=== PATIENT | female | born 1935 | race Caucasian/White ===

== ENCOUNTER 2016-05-03 11:01 | Emergency (ER) | payer OTHER, MEDICARE ==
[~2016-05-03] VITALS: Ht 157.5 cm; Wt 49.4 kg
[~2016-05-03 11:01] MED LIST: ANTI-DEPRESSANT; ASP81CT PO; ATOR10TA PO; BIOT25006 PO; CALC-80 PO; CALCIUM; CHOL2000 PO; CHOL400D9 PO; CLOP75TA28 PO; CYAN50TA PO; ESCI5TAB PO; FOLI-88 PO; MULT-298 PO; OMG1KC PO; ST.1POWD MC; TERI202.4P SQ; VIT1CAPS9 PO; VITB12
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
[2016-05-03] MEDS ORDERED: TRAM-42 PO (12:24)
[2016-05-03 12:59] VITALS: BP 123/76
== END 2016-05-03 12:59 | disposition home or self-care (01) ==
LOC: EDUNIT# 11:01 → ER 11:06
DX: S99.921A Unspecified injury of right foot, initial encounter (principal); S99.922A Unspecified injury of left foot, initial encounter; Z79.02 Long term (current) use of antithrombotics/antiplatelets; V48.4XXA Person boarding or alighting a car injured in noncollision transport accident, initial encounter; Y92.89 Other specified places as the place of occurrence of the external cause; Y99.8 Other external cause status
CPT/HCPCS: 99284

== ENCOUNTER → 2016-05-09 | Outpatient (CLI) | payer OTHER, MEDICARE ==
[~2016-05-09] MED LIST changes: +TRAM-42 PO
--- OUTSIDE RECORDS SUMMARY | 2016-05-09 10:26 | XMS REPORT | Continuity of Care Document ---
Author Author [facility] Organization [facility] Address Unknown Phone Unavailable Care Team Providers Care Power Reactor Supervisor Name Role Phone FordCarolyn PCP [phone] Source Comments Some departments are not documenting in the electronic medical record. If you do not see the information that you expected, contact Release of Information in the Health Information Management department at [phone] for further assistance in locating additional records.[facility] Active Allergies and Adverse Reactions No Known Allergies Current Medications Prescription Sig. Disp. Refills Start End Date Status Date CALCIUM CARBONATE Take 1 Cap by mouth twice Active (CALCIUM 500 PO) daily. fish oil /omega-3 fatty Take 1 Cap by mouth Active acids (SEA-OMEGA) daily. 340/1000 mg capsule ERGOCALCIFEROL (VITAMIN Take 1 Tab by mouth Active D2) (VITAMIN D PO) daily. cyanocobalamin(+) Take 500 mcg by mouth Active (VITAMIN B-12) 500 mcg daily. tablet aspirin EC 81 mg tablet Take 81 mg by mouth Active daily. Biotin 10 mg Tab Take 1 Tab by mouth Active daily. KIANNA'S WORT PO Take 1 Tab by mouth every Active 48 hours. lactobacillus rhamnosus Take 1 Cap by mouth daily Active (GG) (PROBIOTIC) 10 with breakfast. billion cell cap VIT C/VIT E Take 1 Cap by mouth Active ACETATE/LUTEIN/MIN daily. 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 Post herpetic neuralgia 10/31/2011 Social History Tobacco Use Types Packs/Day Years Used Date Former Smoker Cigarettes 0.3 30 Quit: 02/24/1989 Alcohol Use Drinks/Week oz/Week Comments Yes 7 Glasses of 4.2 wine Last Filed Vital Signs Vital Sign Reading Time Taken Blood Pressure 111/73 10/29/2011 2:07 PM CDT Pulse 88 10/29/2011 2:07 PM CDT Temperature 36.7 C (98 F) 10/29/2011 2:07 PM CDT Respiratory Rate 14 10/29/2011 2:07 PM CDT Height 1.549 m (5' 1") 10/29/2011 2:07 PM CDT Weight 50.349 kg (111 lb) 10/29/2011 2:07 PM CDT Body Mass Index 20.98 10/29/2011 2:07 PM CDT Oxygen Saturation 98% 10/29/2011 2:07 PM CDT Plan of Care Health Maintenance Due Date Last Done Comments Physical (Comprehensive) 1944 Exam Pertussis Vaccine 1948 Tetanus Vaccine 1954 Breast Cancer Screening 1977 Shingles Vaccine 1997 Osteoporosis Screening 2002 Prevnar/Pneumovax (#1) 2002 Influenza Vaccine 10/25/2014 Results from Last 3 Months Not on file
--- NOTE | 2016-05-09 12:37 | Diagnostic Imaging Report ---
EXAMINATION: Left lower extremity duplex venous ultrasound. TECHNIQUE: DVT protocol. Multiple sonographic images with color Doppler and waveform interrogation were performed of the left lower extremity veins with compression and augmentation maneuvers. INDICATION: Left leg pain. FINDINGS: The left lower extremity veins from the groin to below the knee veins were examined with normal color-flow, compressibility and waveform demonstrated. The great saphenous vein is patent. IMPRESSION: No evidence of DVT in the left lower extremity. Dictated by: Dictated on workstation # [id number]
== END ==
LOC: RAD 10:22
PROVIDERS: ATTEND Podiatrist
DX: M79.662 Pain in left lower leg (principal)

== ENCOUNTER → 2016-08-15 | Outpatient (CLI) | payer MEDICARE | DX: M81.0 Age-related osteoporosis without current pathological fracture (principal) ==

== ENCOUNTER → 2017-04-24 | Outpatient (CLI) | payer MEDICARE ==
--- NOTE | 2017-04-24 19:05 | Diagnostic Imaging Report ---
INDICATION: Routine screening. The current study was also evaluated with a Computer Aided Detection (CAD) system. Comparison is made with prior exams from 08/15/2015 and 08/04/2014. FINDINGS: Both breasts remain heterogeneously dense, limiting the sensitivity of mammography. The overall parenchymal pattern appears to be stable. There are scattered benign calcifications throughout both breasts. Vascular calcifications are also noted. There is a focal density identified in the right breast retroareolar location, best seen on 3D slice 8 on the CC view. This may be inferiorly located on the MLO view. Additional views are recommended. Left breast is unremarkable. The axillae are unremarkable. IMPRESSION: Right breast density. Additional views are recommended for further evaluation. ACR BI-RADS Category 0: Incomplete. (Needs additional imaging evaluation). Result letter will be mailed to the patient. Note: At least 10% of breast cancer is not imaged by mammography. Dictated by: Dictated on workstation # [id number]
== END ==
LOC: RAD 13:34
PROVIDERS: ATTEND Internal Medicine
DX: Z12.31 Encounter for screening mammogram for malignant neoplasm of breast (principal)
CPT/HCPCS: 77067

== ENCOUNTER → 2017-05-05 | Outpatient (CLI) | payer MEDICARE ==
--- NOTE | 2017-05-05 14:34 | Diagnostic Imaging Report ---
EXAMINATION: Ultrasound of the right breast. INDICATION: Abnormal mammogram. FINDINGS: The screening mammogram performed on 04/24/2017 suggested a focal density in the lateral aspect of the right breast on the craniocaudad view. This finding could not be identified with certainty on the MLO view. On the diagnostic mammogram performed earlier today, there was no evidence for malignancy. On this study, there is no discrete solid or cystic mass identified. I suspect that the density seen on the screening mammogram was secondary to superposition of the dense fibroglandular tissue. Even so, it may prove worthwhile to have a short-term (6 month) followup mammogram of the right breast for continued evaluation. IMPRESSION: There is no evidence for malignancy. Recommendations as above. ACR BI-RADS Category 3: Probably benign findings. Dictated by: Dictated on workstation # [id number]
--- NOTE | 2017-05-05 18:39 | Diagnostic Imaging Report ---
EXAM: Unilateral diagnostic right mammogram. INDICATION: Abnormal screening mammogram. The recent screening mammogram performed on 04/24/2017 noted a focal density in the retroareolar region of the right breast on the CC view. Compression and rolled views of this area showed no definite underlying abnormality. This finding could not be identified with certainty on the true lateral view, either. Even so, I would recommend that ultrasound of the lateral half of the right breast be performed for further evaluation. IMPRESSION: There is no evidence of malignancy. Ultrasound is pending for further evaluation. ACR BI-RADS Category 0: Incomplete. (Needs additional imaging evaluation). Result letter will be mailed to the patient. Note: At least 10% of breast cancer is not imaged by mammography. Dictated by: Dictated on workstation # [id number]
== END ==
LOC: RAD 13:19
PROVIDERS: ATTEND Internal Medicine
DX: R92.8 Other abnormal and inconclusive findings on diagnostic imaging of breast (principal)

== ENCOUNTER → 2017-05-14 | Outpatient (CLI) | payer MEDICARE ==
--- NOTE | 2017-05-14 15:59 | Diagnostic Imaging Report ---
PROCEDURE: US carotid duplex, bilateral. TECHNIQUE: Multiple real-time grayscale images were obtained over the carotid arteries in various projections, bilaterally. Additional duplex Doppler and color Doppler images were also obtained. INDICATION: History of carotid artery atherosclerotic disease. FINDINGS: Color and grayscale images demonstrate fairly tortuous course of the left external carotid artery. There is mild plaque-like formation, particularly at the carotid bifurcations with extension into the internal and external carotid arteries. No visualized area of stenosis. No significant velocity changes to suggest a focal area of stenosis. External carotid arteries are patent. Vertebral arteries with antegrade direction of flow. IMPRESSION: Atherosclerotic disease involving both both carotid arterial systems. However, no findings to suggest significant flow limitations or stenosis at this time. Parameters based on the consensus panel Anne-Scale and Doppler ultrasound criteria published December 2002, Radiology, Volume 229. DOPPLER (peak systolic velocity M/S Right Left CCA .73 .92 ICA Proximal .27 .46 ICA Mid .42 .58 ICA Distal .8 .65 RATIO 1.1 .71 ECA .75 .69 VERT .7 .6 Dictated by: Dictated on workstation # [id number]
== END ==
LOC: RAD 15:11
PROVIDERS: ATTEND Internal Medicine
DX: I65.23 Occlusion and stenosis of bilateral carotid arteries (principal)
CPT/HCPCS: 93880

== ENCOUNTER → 2017-11-19 | Outpatient (CLI) | payer MEDICARE ==
--- NOTE | 2017-11-19 15:21 | Diagnostic Imaging Report ---
EXAMINATION: Ultrasound of the right breast. INDICATION: Followup exam. FINDINGS: The screening mammogram performed on 04/24/2017 suggested a small area of increased density in the retroareolar region of the right breast. The subsequent diagnostic mammogram and ultrasound exam of 05/05/2017 failed to show any sign of malignancy in this area. On the diagnostic mammogram performed earlier today, there was no evidence for malignancy either. The study is also unremarkable for any discrete solid or cystic mass that would suggest a malignant process. Most likely, the density in question was related to fibroglandular tissue alone. I do feel the patient can return to her routine screening schedule in April of 2018. IMPRESSION: 1. There is no evidence for malignancy. 2. The patient should have her annual screening mammogram on schedule in April 2018. ACR BI-RADS Category 1: Negative. Dictated by: Dictated on workstation # [id number]
--- NOTE | 2017-11-19 16:19 | Diagnostic Imaging Report ---
EXAMINATION: Unilateral diagnostic right mammogram with 3D Tomosynthesis. INDICATION: Previous abnormal mammogram. COMPARISON: 04/24/2017, 08/15/2015, and 08/04/2014. PERSONAL HISTORY: At this time, there are no current complaints. FINDINGS: The screening mammogram performed on 04/24/2017 raised the question of a focal area of increased density in the lateral aspect of the right breast on the craniocaudad view. The subsequent diagnostic mammogram and ultrasound exam of 05/05/2017 failed to show any sign of malignancy in this area. On this exam, there is still no primary or secondary sign of malignancy evident in this region. When compared to the previous study, there does not appear to have been any significant change. IMPRESSION: 1. The appearance of the right breast is stable when compared to the prior exam. There is still no evidence for malignancy. 2. Ultrasound is pending for further evaluation. ACR BI-RADS Category 0: Incomplete. (Needs additional imaging evaluation). Result letter will be mailed to the patient. Note: At least 10% of breast cancer is not imaged by mammography. Dictated by: Dictated on workstation # [id number]
== END ==
LOC: RAD 12:48
PROVIDERS: ATTEND Internal Medicine
DX: R92.8 Other abnormal and inconclusive findings on diagnostic imaging of breast (principal)

== ENCOUNTER → 2018-05-07 | Outpatient (CLI) | payer MEDICARE ==
--- NOTE | 2018-05-07 20:01 | Diagnostic Imaging Report ---
INDICATION: Routine screening. COMPARISON: Comparison is made with prior mammograms from 04/24/2017 and 08/15/2015. TECHNIQUE: 2D and 3D bilateral screening mammography was performed with computer-aided detection (CAD) system. FINDINGS: Both breasts are heterogeneously dense, limiting the sensitivity of mammography. There are benign-appearing parenchymal and vascular calcifications bilaterally. No dominant mass or malignant appearing microcalcifications are seen. The axillae are unremarkable. IMPRESSION: No mammographic features suspicious for malignancy are identified. ACR BI-RADS Category 2: Benign findings. Result letter will be mailed to the patient. Note: At least 10% of breast cancer is not imaged by mammography. Dictated by: Dictated on workstation # [id number]
== END ==
LOC: RAD 15:11
PROVIDERS: ATTEND Internal Medicine
DX: Z12.31 Encounter for screening mammogram for malignant neoplasm of breast (principal)
CPT/HCPCS: 77067

== ENCOUNTER → 2018-11-25 | Outpatient (CLI) | payer MEDICARE ==
[~2018-11-25] MED LIST changes: +RT-ALBUTEROL SULF 2.5 MG/3 ML PRE-MIX VIAL INH ONE
== END ==
LOC: RT 15:54
PROVIDERS: ATTEND Physician Assistant
DX: J44.9 Chronic obstructive pulmonary disease, unspecified (principal)
CPT/HCPCS: 94060; 94640; 94726; 94729

== ENCOUNTER → 2019-05-04 | Outpatient (CLI) | payer MEDICARE ==
[~2019-05-04] MED LIST changes: -RT-ALBUTEROL SULF 2.5 MG/3 ML PRE-MIX VIAL INH ONE
--- NOTE | 2019-05-04 16:36 | Diagnostic Imaging Report ---
INDICATION: Routine screening. Comparison is made with prior mammograms from 05/07/2018 and 04/24/2017. 2-D and 3-D bilateral screening mammography was performed. The current study was also evaluated with a Computer Aided Detection (CAD) system. 3-D tomosynthesis was also performed and reviewed. FINDINGS: Both breasts remain heterogeneously dense, limiting the sensitivity of mammography. There are benign parenchymal and vascular calcifications bilaterally. No dominant mass or malignant-appearing microcalcifications are seen. Axillae are unremarkable. IMPRESSION: No mammographic features suspicious for malignancy are identified. ACR BI-RADS Category 2: Benign findings. Result letter will be mailed to the patient. Note: At least 10% of breast cancer is not imaged by mammography. Dictated by: Dictated on workstation # [id number]
== END ==
LOC: RAD 15:11
PROVIDERS: ATTEND Nurse Practitioner
DX: Z12.31 Encounter for screening mammogram for malignant neoplasm of breast (principal)
CPT/HCPCS: 77067

== ENCOUNTER → 2020-05-04 | Outpatient (CLI) | payer MEDICARE ==
--- NOTE | 2020-05-05 11:50 | Diagnostic Imaging Report ---
INDICATION: Routine screening. Comparison is made with prior mammogram 05/04/2019 and 05/07/2018. 2-D and 3-D bilateral screening mammography was performed with CAD. Both breasts remain heterogeneously dense, limiting the sensitivity of mammography. There are scattered benign parenchymal and vascular calcifications bilaterally. No mass or malignant appearing microcalcifications are seen. Axillae are unremarkable. IMPRESSION: BI-RADS Category 2 No mammographic features suspicious for malignancy are identified. ACR BI-RADS Category 2: Benign findings. Result letter will be mailed to the patient. Note: At least 10% of breast cancer is not imaged by mammography. Dictated by: Dictated on workstation # [id number]
== END ==
LOC: RAD 14:45
PROVIDERS: ATTEND Internal Medicine
DX: Z12.31 Encounter for screening mammogram for malignant neoplasm of breast (principal)
CPT/HCPCS: 77063; 77067

== ENCOUNTER 2020-08-11 15:58 | Outpatient (RCR) | payer MEDICARE | END 2020-08-20 | disposition home or self-care (01) | LOC: CR3 15:58 | PROVIDERS: ATTEND Internal Medicine | DX: Z01.818 Encounter for other preprocedural examination (principal) ==

== ENCOUNTER → 2020-09-20 | Outpatient (RCR) | payer MEDICARE | END | disposition home or self-care (01) | LOC: CR3 08-21 15:12 | PROVIDERS: ATTEND Internal Medicine | DX: Z01.818 Encounter for other preprocedural examination (principal) ==

== ENCOUNTER 2020-10-18 15:23 | Outpatient (RCR) | payer MEDICARE | END 2020-10-22 | LOC: CR3 15:23 | PROVIDERS: ATTEND Internal Medicine | DX: Z29.8 Encounter for other specified prophylactic measures (principal) ==

== ENCOUNTER → 2020-10-27 | Outpatient (CLI) | payer MEDICARE ==
--- NOTE | 2020-10-27 14:50 | Diagnostic Imaging Report ---
INDICATION: COPD. TIME OF EXAM: 2:17 PM Correlation is made with prior chest from 09/27/2015. The heart size is stable. Lungs are hyperinflated consistent with COPD. No infiltrates are seen. There is no effusion or pneumothorax. IMPRESSION: COPD. No acute feature is detected. Dictated by: Dictated on workstation # [id number]
== END ==
LOC: RAD 13:44
PROVIDERS: ATTEND Internal Medicine
DX: J44.9 Chronic obstructive pulmonary disease, unspecified (principal)
CPT/HCPCS: 71046

== ENCOUNTER → 2020-11-03 | Outpatient (CLI) | payer MEDICARE ==
[~2020-11-03] MED LIST changes: +RT-ALBUTEROL SULF 2.5 MG/3 ML PRE-MIX VIAL INH ONE
== END ==
LOC: RT 13:00
PROVIDERS: ATTEND Internal Medicine
DX: J44.9 Chronic obstructive pulmonary disease, unspecified (principal)
CPT/HCPCS: 94060; 94726; 94729

== ENCOUNTER 2020-11-13 14:58 | Outpatient (RCR) | payer MEDICARE ==
[~2020-11-13 14:58] MED LIST changes: -RT-ALBUTEROL SULF 2.5 MG/3 ML PRE-MIX VIAL INH ONE
== END 2020-11-22 | disposition home or self-care (01) ==
LOC: CR3 14:58
PROVIDERS: ATTEND Internal Medicine
DX: Z29.8 Encounter for other specified prophylactic measures (principal)

== ENCOUNTER 2020-11-27 15:38 | Outpatient (RCR) | payer MEDICARE | END 2020-12-27 | disposition home or self-care (01) | LOC: CR3 15:38 | PROVIDERS: ATTEND Internal Medicine | DX: Z29.8 Encounter for other specified prophylactic measures (principal) ==

== ENCOUNTER → 2020-12-08 | Outpatient (CLI) | payer MEDICARE, OTHER | LOC: CARD 13:00 | PROVIDERS: ATTEND Internal Medicine Cardiovascular Disease | DX: I08.1 Rheumatic disorders of both mitral and tricuspid valves (principal) | CPT/HCPCS: 93306 ==

== ENCOUNTER 2021-02-14 13:30 | Inpatient (IN) | payer MEDICARE, OTHER ==
[~2021-02-14] VITALS: Ht 157.5 cm; Wt 44.9 kg
[2021-02-14 14:16] LABS: BASOPHILS # (AUTO) 0.1 10^3/uL (0.0-0.1); BASOPHILS % (AUTO) 0 % (0-10); EOSINOPHILS # (AUTO) 0.1 10^3/uL (0.0-0.3); EOSINOPHILS % (AUTO) 0 % (0-10); HEMATOCRIT 47 % (35-52); LYMPHOCYTES # (AUTO) 1.2 10^3/uL (1.0-4.0); LYMPHOCYTES % (AUTO) 11 % (12-44); MEAN CORPUSCULAR HEMOGLOBIN 31 pg (25-34); MEAN CORPUSCULAR HGB CONC 32 g/dL (32-36); MEAN CORPUSCULAR VOLUME 96 fL (80-99); MEAN PLATELET VOLUME 9.3 fL (9.0-12.2); MONOCYTES # (AUTO) 0.3 10^3/uL (0.0-1.0); MONOCYTES % (AUTO) 3 % (0-12); NEUTROPHILS # (AUTO) 9.8 10^3/uL (1.8-7.8); NEUTROPHILS % (AUTO) 85 % (42-75); PLATELET COUNT 246 10^3/uL (130-400); WHITE BLOOD COUNT 11.5 10^3/uL (4.3-11.0)
[2021-02-14 14:17] LABS: SMEAR SCAN COMMENT YES
[2021-02-14 14:38] LABS: INR 1.1 (0.8-1.4); PROTHROMBIN TIME PATIENT 14.2 SEC (12.2-14.7)
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
--- NOTE | 2021-02-14 14:58 | ED Lower Extremity ---
General Chief Complaint: Trauma-Non Activation Stated Complaint: FELL LEFT LEG PAIN Nursing Triage Note: PT ARRIVED TO ER BY [facility] WITH C/O L THIGH PAIN AFTER FALLING IN A HOLE IN HER BACKYARD (LAURI CHILDERS) History of Present Illness Date Seen by Provider: Feb 14, 2021 Time Seen by Provider: 13:30 Initial Comments 85-year-old female arrives via EMS reports walking in her yard when she stepped in a hole that was covered in leaves. She was unable to get up and EMS was called. She denies loss of consciousness or head injury at the time of the fall. She is complaining of pain in the left hip and groin since the fall. She is otherwise very healthy she did have a stroke approximately 7 to 9 years ago and is on Plavix. She denies any other complaints at this time. Her pain is currently managed she was given fentanyl 50 mcg IV by EMS. She has received her COVID vaccines and booster, and received her influenza vaccine. She denies any respiratory symptoms or known exposures. Onset: just prior to arrival Pain/Injury Location: left hip Method of Injury: fell Modifying Factors: Improves With Rest (LAURI CHILDERS) Allergies and Home Medications Allergies Coded Allergies: celecoxib (Unverified Allergy, Mild, RASH, 03/16/10) Penicillins (Unverified Allergy, Unknown, 01/05/14) Patient Home Medication List Home Medication List Reviewed: Yes (LAURI CHILDERS) Atorvastatin Calcium (Lipitor) 10 Mg Tablet, 10 MG PO DAILY Prescribed by: JACOB MEIER on 11/17/14 0943 Biotin (Biotin) 2,500 Mcg Capsule, 5,000 MCG PO DAILY, (Reported) Entered as Reported by: ROMEO GAITAN on 01/05/14 1238 Calcium Carbonate/Vitamin D3 (Calcium 600 + D Caplet) 1 Each Tablet, 1 TAB PO BID, (Reported) Entered as Reported by: ROMEO GAITAN on 01/05/14 1238 Cholecalciferol (Vitamin D3) (Vitamin D) 2,000 Unit Capsule, 2,000 UNIT PO DAILY, (Reported) Entered as Reported by: JOSELINE RAMIREZ on 11/15/14 1330 Clopidogrel Bisulfate (Clopidogrel) 75 Mg Tablet, 75 MG PO DAILY Prescribed by: JACOB MEIER on 11/17/14 0942 Cyanocobalamin (Vitamin B12) 50 Mcg Tablet, 50 MCG PO DAILY, (Reported) Entered as Reported by: ROMEO GAITAN on 01/05/14 1238 Escitalopram Oxalate (Lexapro) 5 Mg Tablet, 5 MG PO DAILY, (Reported) Entered as Reported by: JOSELINE RAMIREZ on 11/15/14 1330 Folic Acid/Multivit-Min/Lutein (Multi-Vitamin Gummies) 1 Each Tab.chew, 1 TAB PO TID, (Reported) Entered as Reported by: JOSELINE RAMIREZ on 11/15/14 1330 Graham 3 Polyunsat Fatty Acids (Fish Oil) 1,000 Mg Cap, 1,000 MG PO TID, (Reported) Entered as Reported by: DELON HOOD on 07/09/11 1438 Teriparatide (Forteo) 600 Mcg/2.4 Ml Syr, 20 MCG SQ DAILY, (Reported) Entered as Reported by: JOSELINE RAMIREZ on 11/15/14 1330 Tramadol HCl (Ultram) 50 Mg Tablet, 50 MG PO Q6H PRN for PAIN Prescribed by: BRIDGETTE DHILLON on 05/03/16 1224 Vit C/Vit E/Lutein/Min/[place]raham-3 (Ocuvite Softgel) 1 Each Capsule, 1 CAP PO DAILY, (Reported) Entered as Reported by: ROMEO GAITAN on 01/05/14 1238 Review of Systems Constitutional: no symptoms reported, see HPI Musculoskeletal: see HPI, joint pain (Left hip) (LAURI CHILDERS) All Other Systems Reviewed Negative Unless Noted: Yes (LAURI CHILDERS) Past Bowkfch-Diuoke-Lyayks Hx Patient Social History Tobacco Use?: No Substance use?: No Alcohol Use?: Yes Alcohol type: Wine Alcohol Frequency: Rarely Pt feels they are or have been: No (LAURI CHILDERS) Immunizations Up To Date Influenza Vaccine Up-to-Date: Yes; Up-to-Date First/Initial COVID19 Vaccinat: 2020 Second COVID19 Vaccination Bola: 2020 COVID19 Vaccine Financial Writer: CONCEPCIÓN (LAURI CHILDERS) Seasonal Allergies Seasonal Allergies: No (LAURI CHILDERS) Past Medical History Surgery/Hospitalization HX: COPD, CVA Eye Surgery, Hysterectomy Currently Using CPAP: No Currently Using BIPAP: No Stroke Reproductive Disorders: No Female Reproductive Disorders: Denies Sexually Transmitted Disease: No HIV/AIDS: No Osteoporosis Cataract Depression Adverse Reaction/Blood Tranf: No (LAURI CHILDERS) Family Medical History Reviewed Nursing Family Hx (LAURI CHILDERS) Heart Disease, Hypertension (LAURI CHILDERS) Physical Exam Vital Signs Vital Signs - First Documented 02/14/21 13:30 Temp 35.6 Pulse 75 Resp 16 B/P (MAP) 127/80 (96) Pulse Ox 96 O2 Delivery Room Air (JJ SCHILLING MD) Vital Signs Capillary Refill : Less Than 3 Seconds (LAURI CHILDERS) Height, Weight, BMI Height: 5'2" Weight: 109lbs. 0.0oz. 49.234704yt; 18.00 BMI Method:Stated General Appearance: WD/WN, no apparent distress HEENT: PERRL/EOMI, normal ENT inspection, TMs normal, pharynx normal Neck: non-tender, full range of motion, supple, normal inspection Cardiovascular: normal peripheral pulses, regular rate, rhythm Respiratory: chest non-tender, lungs clear, normal breath sounds Gastrointestinal: normal bowel sounds, non tender, soft Hips: right hip non-tender, right hip normal inspection, right hip normal range of motion, right hip no evidence of injury; left hip bone tenderness, left hip limited range of motion, left hip pain, left hip soft tissue tenderness Legs: right leg non-tender, right leg normal inspection, right leg normal range of motion, right leg no evidence of injury; left leg pain, left leg other (Trace shortening and external rotation) Neurologic/Tendon: normal sensation, normal motor functions, normal tendon functions Neurologic/Psychiatric: no motor/sensory deficits, alert, normal mood/affect, oriented x 3 Skin: normal color, warm/dry (LAURI CHILDERS) Progress/Results/Core Measures Results/Orders Lab Results Laboratory Tests Test 02/14/21 14:05 02/14/21 14:45 Range/Units White Blood Count 11.5 H 4.3-11.0 10^3/uL Red Blood Count 4.89 3.80-5.11 10^6/uL Hemoglobin 15.0 11.5-16.0 g/dL Hematocrit 47 35-52 % Mean Corpuscular Volume 96 80-99 fL Mean Corpuscular Hemoglobin 31 25-34 pg Mean Corpuscular Hemoglobin Concent 32 32-36 g/dL Red Cell Distribution Width 12.9 10.0-14.5 % Platelet Count 246 130-400 10^3/uL Mean Platelet Volume 9.3 9.0-12.2 fL Immature Granulocyte % (Auto) 0 % Neutrophils (%) (Auto) 85 H 42-75 % Lymphocytes (%) (Auto) 11 L 12-44 % Monocytes (%) (Auto) 3 0-12 % Eosinophils (%) (Auto) 0 0-10 % Basophils (%) (Auto) 0 0-10 % Neutrophils # (Auto) 9.8 H 1.8-7.8 10^3/uL Lymphocytes # (Auto) 1.2 1.0-4.0 10^3/uL Monocytes # (Auto) 0.3 0.0-1.0 10^3/uL Eosinophils # (Auto) 0.1 0.0-0.3 10^3/uL Basophils # (Auto) 0.1 0.0-0.1 10^3/uL Immature Granulocyte # (Auto) 0.0 0.0-0.1 10^3/uL Percent Immature Platelet Fraction 2.0 0.0-7.6 % Prothrombin Time 14.2 12.2-14.7 SEC INR Comment 1.1 0.8-1.4 Activated Partial Thromboplast Time 23 L 24-35 SEC Smear Scan YES Sodium Level 142 135-145 MMOL/L Potassium Level 4.0 3.6-5.0 MMOL/L Chloride Level 107 98-107 MMOL/L Carbon Dioxide Level 22 21-32 MMOL/L Anion Gap 13 5-14 MMOL/L Blood Urea Nitrogen 15 7-18 MG/DL Creatinine 0.71 0.60-1.30 MG/DL Estimat Glomerular Filtration Rate 79 BUN/Creatinine Ratio 21 Glucose Level 108 H 70-105 MG/DL Calcium Level 9.2 8.5-10.1 MG/DL Corrected Calcium 9.2 8.5-10.1 MG/DL Total Bilirubin 0.6 0.1-1.0 MG/DL Aspartate Amino Transf (AST/SGOT) 19 5-34 U/L Alanine Aminotransferase (ALT/SGPT) 13 0-55 U/L Alkaline Phosphatase 75 40-136 U/L Total Protein 7.2 6.4-8.2 GM/DL Albumin 4.0 3.2-4.5 GM/DL (JJ SCHILLING MD) Vital Signs/I&O 02/14/21 13:30 Temp 35.6 Pulse 75 Resp 16 B/P (MAP) 127/80 (96) Pulse Ox 96 O2 Delivery Room Air (JJ SCHILLING MD) Blood Pressure Mean: 96 Progress Progress Note : Time: 13:30 Progress Note Patient seen and evaluated, will obtain labs, x-ray and continue to monitor. Ice pack to left hip. 1415 left intertrochanteric hip fracture noted on x-ray. Results discussed with the patient and her daughter. [address] Olivas agreeable with plans for n.p.o. after midnight and surgery tomorrow. 1450, discussed patient with Dr. High, will admit to his service and consult Dr. Olivas. 1500 patient continues to deny need for pain medication. Taking ice chips and water, a food tray will be requested from a dietary. Family at bedside. 1600 patient denies any complaints, has not requested any additional pain medica tion. Ate food tray and drinking water. 1630 patient to 4th floor, remained stable through ED visit. (LAURI CHILDERS) Diagnostic Imaging Diagonstic Imaging: Xray Plain Films/CT/US/NM/MRI: pelvis, hip Comments NAME: JOSE AMBROSE [facility] REC#: [id number] PT STATUS: REG ER : 1935 PHYSICIAN: LAURI CHILDERS ADMIT DATE: 02/14/21/ER Draft Date of Exam:02/14/21 PELVIS WITH LEFT HIP 2-3 VIEWS INDICATION: Fall, left hip injury, pain, and swelling. COMPARISON: None. FINDINGS: A single view of the pelvis and two views of t he left hip demonstrate a nondisplaced intertrochanteric fracture of the left hip. There is no dislocation. No osseous lesion. IMPRESSION: Intertrochanteric fracture of the left hip. Dictated on workstation # [id number] Dict: 02/14/21 1447 Trans: 02/14/21 1451 [id number] Interpreted by: ALEX PRYOR Electronically signed by: Diagonstic Imaging: Xray Plain Films/CT/US/NM/MRI: chest Comments NAME: JOSE AMBROSE [facility] REC#: [id number] PT STATUS: REG ER : 1935 PHYSICIAN: LAURI CHILDERS ADMIT DATE: 02/14/21/ER Draft Date of Exam:02/14/21 CHEST 1 VIEW, AP/PA ONLY INDICATION: Left hip injury, pain, fall. COMPARISON: 01/12/2014. FINDINGS: Single view of the chest demonstrates hyperinflation, likely COPD. Lungs are otherwise clear. Heart is slightly enlarged. There is no pneumothorax or effusion. Osseous structures are unremarkable. IMPRESSION: No acute cardiopulmonary findings. Dictated on workstation # [id number] Dict: 02/14/21 1446 Trans: 02/14/21 1450 [id number] Interpreted by: ALEX PRYOR Electronically signed by: Reviewed: Reviewed by Me (LAURI CHILDERS) Departure Impression Primary Impression: Fall Qualified Codes: W19.XXXA - Unspecified fall, initial encounter Additional Impression: Intertrochanteric fracture of left hip Qualified Codes: S72.145A - Nondisplaced intertrochanteric fracture of left femur, initial encounter for closed fracture Disposition: ADMITTED INPATIENT Condition: Stable Admissions Decision to Admit Reason: Admit from ER (General) Decision to Admit/Date: Feb 14, 2021 Time/Decision to Admit Time: 14:30 (LAURI CHILDERS) Departure-Patient Inst. Referrals: ORTIZ ESPINOZA MD (PCP/Family) Primary Care Physician ATTENDING PHYSICIAN NOTE: I was physically present as attending physician in the emergency department during the care of this patient, but I was not directly involved in the decision making or delivery of care for this patient. (JJ SCHILLING MD) Copy Copies To 1: ORTIZ ESPINOZA MD, AMY ARNP Feb 14, 2021 14:58 JJ SCHILLING MD Feb 14, 2021 21:13
[2021-02-14 15:13] LABS: CALCIUM 9.2 MG/DL (8.5-10.1)
[2021-02-14 15:14] LABS: TOTAL PROTEIN 7.2 GM/DL (6.4-8.2)
[2021-02-14 15:16] LABS: BILIRUBIN,TOTAL 0.6 MG/DL (0.1-1.0)
[2021-02-14 15:18] LABS: CREATININE SERUM 0.71 MG/DL (0.60-1.30)
[2021-02-14 15:45] LABS: BILIRUBIN,URINE NEGATIVE (NEGATIVE); CLARITY,URINE CLEAR; COLOR,URINE YELLOW; GLUCOSE, URINE (UA) NEGATIVE (NEGATIVE); KETONES,URINE 2+ (NEGATIVE); LEUKOCYTE ESTERASE ,URINE 1+ (NEGATIVE); NITRITE,URINE NEGATIVE (NEGATIVE); PH,URINE 5.5 (5-9); PROTEIN,URINE TRACE (NEGATIVE)
[2021-02-14 15:56] LABS: BACTERIA,URINE MODERATE /HPF; RBC,URINE 0-2 /HPF; WBC,URINE 25-50 /HPF
[2021-02-14 17:00] VITALS: BP 107/53
[2021-02-14] MEDS ORDERED: CATHETER FLUSH 10 ML SYR IV PRN (17:15)
[2021-02-14] MEDS ORDERED: fentaNYL INJ 100 MCG/2 ML AMP IV PRN (17:15)
[2021-02-14] MEDS: D5 1/2 NS 1000 ML IV SOLUTION 1,000 ML IV SCH (17:44)
[2021-02-14 20:00] VITALS: BP 106/64
[2021-02-15] VITALS (13 sets, daily range): BP systolic 102–153; BP diastolic 58–85
[2021-02-15] MEDS: D5 1/2 NS 1000 ML IV SOLUTION 1,000 ML IV SCH ×2 (05:09→19:21)
[2021-02-15 06:34] LABS: BASOPHILS % (AUTO) 0 % (0-10); EOSINOPHILS % (AUTO) 0 % (0-10); HEMATOCRIT 41 % (35-52); HEMOGLOBIN 13.4 g/dL (11.5-16.0); LYMPHOCYTES % (AUTO) 20 % (12-44); MEAN CORPUSCULAR HEMOGLOBIN 31 pg (25-34); MEAN CORPUSCULAR HGB CONC 33 g/dL (32-36); MEAN CORPUSCULAR VOLUME 94 fL (80-99); MEAN PLATELET VOLUME 9.3 fL (9.0-12.2); MONOCYTES # (AUTO) 0.8 10^3/uL (0.0-1.0); MONOCYTES % (AUTO) 8 % (0-12); NEUTROPHILS # (AUTO) 6.9 10^3/uL (1.8-7.8); NEUTROPHILS % (AUTO) 71 % (42-75); PLATELET COUNT 258 10^3/uL (130-400); WHITE BLOOD COUNT 9.8 10^3/uL (4.3-11.0)
[2021-02-15 06:57] LABS: CALCIUM 9.1 MG/DL (8.5-10.1); CREATININE SERUM 0.69 MG/DL (0.60-1.30); POTASSIUM 3.9 MMOL/L (3.6-5.0)
--- NOTE | 2021-02-15 08:30 | Consultation - Ortho ---
Consult - Ortho Subjective Date of Exam 02/15/21 Chief Complaint Left Hip Injury HPI/Events since last exam 85 year old female sustained a fall from standing height yesterday, diagnosed with intertrochanteric femur fracture and I was asked to care for the fracture. Medical, Surgical History not obtained Social History not obtained Family History not obtained Review of Systems not obtained Allergies: Coded Allergies: celecoxib (Unverified Allergy, Mild, RASH, 03/16/10) Penicillins (Unverified Allergy, Unknown, 01/05/14) Home Meds Active Scripts Tramadol HCl (Ultram) 50 Mg Tablet, 50 MG PO Q6H PRN for PAIN, #10 TAB Prov:BRIDGETTE DHILLON HOOKER INSPECTOR 05/03/16 Atorvastatin Calcium (Lipitor) 10 Mg Tablet, 10 MG PO DAILY, #30 TAB 6 Refills Prov:JACOB MEIER MD 11/17/14 Clopidogrel Bisulfate (Clopidogrel) 75 Mg Tablet, 75 MG PO DAILY, #30 TAB 11 Refills Prov:JACOB MEIER MD 11/17/14 Reported Medications Teriparatide (Forteo) 600 Mcg/2.4 Ml Syr, 20 MCG SQ DAILY 11/15/14 Escitalopram Oxalate (Lexapro) 5 Mg Tablet, 5 MG PO DAILY 11/15/14 Cholecalciferol (Vitamin D3) (Vitamin D) 2,000 Unit Capsule, 2000 UNIT PO DAILY 11/15/14 Folic Acid/Multivit-Min/Lutein (Multi-Vitamin Gummies) 1 Each Tab.chew, 1 TAB PO TID 11/15/14 Cyanocobalamin (Vitamin B12) 50 Mcg Tablet, 50 MCG PO DAILY, TAB 01/05/14 Calcium Carbonate/Vitamin D3 (Calcium 600 + D Caplet) 1 Each Tablet, 1 TAB PO BID 01/05/14 Vit C/Vit E/Lutein/Min/[place]-3 (Ocuvite Softgel) 1 Each Capsule, 1 CAP PO DAILY, CAP 01/05/14 Biotin (Biotin) 2,500 Mcg Capsule, 5000 MCG PO DAILY, CAP 01/05/14 [place] 3 Polyunsat Fatty Acids (Fish Oil) 1,000 Mg Cap, 1000 MG PO TID 07/09/11 Objective Exam Left Hip: skin intact, +DF of ankle, calf soft/NT Vital Signs Vital Signs Date Time Temp Pulse Resp B/P (MAP) Pulse Ox O2 Delivery O2 Flow Rate FiO2 12/23/21 07:50 36.4 79 20 126/65 (85) 96 Room Air 02/15/21 04:04 36.0 74 18 113/60 (77) 92 Room Air 02/15/21 00:00 36.4 72 20 102/59 (73) 94 Room Air 02/14/21 20:08 Room Air 02/14/21 20:00 37.2 86 22 106/64 (78) 98 Room Air 02/14/21 17:18 Room Air 02/14/21 17:00 37.1 82 20 107/53 (71) 95 Room Air 02/14/21 16:41 35.6 68 16 123/70 94 Room Air 02/14/21 13:30 35.6 75 16 127/80 (96) 96 Room Air I & O 02/15/21 07:00 Intake Total 1350 ml Output Total 825 ml Balance 525 ml Lab Results Laboratory Tests 02/14/21 14:05: White Blood Count 11.5H, Red Blood Count 4.89, Hemoglobin 15.0, Hematocrit 47, Mean Corpuscular Volume 96, Mean Corpuscular Hemoglobin 31, Mean Corpuscular Hemoglobin Concent 32, Red Cell Distribution Width 12.9, Platelet Count 246, Mean Platelet Volume 9.3, Immature Granulocyte % (Auto) 0, Neutrophils (%) (Auto) 85H, Lymphocytes (%) (Auto) 11L, Monocytes (%) (Auto) 3, Eosinophils (%) (Auto) 0, Basophils (%) (Auto) 0, Neutrophils # (Auto) 9.8H, Lymphocytes # (Auto) 1.2, Monocytes # (Auto) 0.3, Eosinophils # (Auto) 0.1, Basophils # (Auto) 0.1, Immature Granulocyte # (Auto) 0.0, Percent Immature Platelet Fraction 2.0, Prothrombin Time 14.2, INR Comment 1.1, Activated Partial Thromboplast Time 23L, Smear Scan YES 02/14/21 14:45: Sodium Level 142, Potassium Level 4.0, Chloride Level 107, Carbon Dioxide Level 22, Anion Gap 13, Blood Urea Nitrogen 15, Creatinine 0.71, Estimat Glomerular Filtration Rate 79, BUN/Creatinine Ratio 21, Glucose Level 108H, Calcium Level 9.2, Corrected Calcium 9.2, Total Bilirubin 0.6, Aspartate Amino Transf (AST/SGOT) 19, Alanine Aminotransferase (ALT/SGPT) 13, Alkaline Phosphatase 75, Total Protein 7.2, Albumin 4.0 02/14/21 15:40: Urine Color YELLOW, Urine Clarity CLEAR, Urine pH 5.5, Urine Specific [place] 1.020, Urine Protein TRACEH, Urine Glucose (UA) NEGATIVE, Urine Ketones 2+H, Urine Nitrite NEGATIVE, Urine Bilirubin NEGATIVE, Urine Urobilinogen 0.2, Urine Leukocyte Esterase 1+H, Urine RBC (Auto) TRACE-IH, Urine RBC 0-2, Urine WBC 25- 50H, Urine Crystals NONE, Urine Bacteria MODERATEH, Urine Casts NONE, Urine Mucus NEGATIVE, Urine Culture Indicated NO 02/14/21 22:35: SARS-CoV-2 RNA (RT-PCR) Not Detected 02/15/21 06:15: White Blood Count 9.8, Red Blood Count 4.37, Hemoglobin 13.4, Hematocrit 41, Mean Corpuscular Volume 94, Mean Corpuscular Hemoglobin 31, Mean Corpuscular He moglobin Concent 33, Red Cell Distribution Width 13.1, Platelet Count 258, Mean Platelet Volume 9.3, Immature Granulocyte % (Auto) 0, Neutrophils (%) (Auto) 71, Lymphocytes (%) (Auto) 20, Monocytes (%) (Auto) 8, Eosinophils (%) (Auto) 0, Basophils (%) (Auto) 0, Neutrophils # (Auto) 6.9, Lymphocytes # (Auto) 2.0, Monocytes # (Auto) 0.8, Eosinophils # (Auto) 0.0, Basophils # (Auto) 0.0, Immature Granulocyte # (Auto) 0.0, Sodium Level 138, Potassium Level 3.9, Chloride Level 106, Carbon Dioxide Level 22, Anion Gap 10, Blood Urea Nitrogen 12, Creatinine 0.69, Estimat Glomerular Filtration Rate 81, BUN/Creatinine Ratio 17, Glucose Level 129H, Calcium Level 9.1 Imaging Pelvis and 2 views of the Left Hip were reviewed from PACS and demonstrated an intertrochanteric femur fracture without significant displacement Assessment and Plan Assessment Left Intertrochanteric Femur Fracture Problem List Left Intertrochanteric Femur Fracture Plan I have recommended reduction and fixation of the left IT femur fx. I discussed stabilizing the fracture with an IM device. Discussed the nature of the procedure and the postoperative course. Discussed risks and benefits. Currently on the surgical schedule for noon today. All questions were answered. Consent to be obtained. Final Diagonsis Left Intertrochanteric Femur Fracture Level of the visit: Level 3 (preop) WINIFRED CHAUDHARY MD Feb 15, 2021 08:30
[2021-02-15] MEDS ORDERED: VIT1TABL26 PO (10:10)
[2021-02-15] MEDS ORDERED: L.AC1CAP6 PO (10:10)
[2021-02-15] MEDS ORDERED: ESCI-2 PO (10:10)
[2021-02-15] MEDS ORDERED: MULT-1136 PO (10:10)
[2021-02-15] MEDS ORDERED: CLOP75TA28 PO (10:10)
[2021-02-15] MEDS ORDERED: RT-ALBUINH IH (10:10)
[2021-02-15] MEDS ORDERED: FLUT1AER IH (10:10)
[2021-02-15] MEDS ORDERED: CYAN500T8 PO (10:10)
[2021-02-15] MEDS ORDERED: NFBIOT1000 PO (10:10)
[2021-02-15] MEDS ORDERED: CHOL10007 PO (10:10)
[2021-02-15] MEDS ORDERED: CALC-687 PO (10:10)
[2021-02-15] MEDS ORDERED: OMEG-160 PO (10:10)
[2021-02-15] MEDS ORDERED: CLINDAMYCIN 600 MG/50 ML IVPB 50 ML IV ONE (11:30)
[2021-02-15] MEDS ORDERED: proPOfol 200 MG/20 ML (DIPRIVAN) VIAL IV ONE (11:57)
[2021-02-15] MEDS ORDERED: LIDOCAINE PF 2% 5 ML (XYLOCAINE) VIAL ONE (11:57)
[2021-02-15] MEDS ORDERED: fentaNYL INJ 100 MCG/2 ML AMP ONE (11:57)
[2021-02-15] MEDS ORDERED: LACTATED RINGERS 1,000 ML IV PRN (12:00)
[2021-02-15] MEDS ORDERED: SEVOFLURANE (ULTANE) 15 ML INHAL SOLN ONE (12:29)
--- NOTE | 2021-02-15 13:23 | Anesthesia-General Post-Op ---
General Patient Condition Mental Status/LOC: Same as Preop Cardiovascular: Satisfactory Nausea/Vomiting: Absent Respiratory: Satisfactory Pain: Controlled Complications: Absent Post Op Complications Complications None Follow Up Care/Instructions Patient Instructions None needed. Anesthesia/Patient Condition Patient Condition Patient is doing well, no complaints, stable vital signs, no apparent adverse anesthesia problems. No complications reported per nursing. PAULINO GENAO CRNA Feb 15, 2021 13:23
--- NOTE | 2021-02-15 13:25 | Operative Report - Ortho ---
Operative Report Surgeon (s)/Training Personnel Supervisor (s) Surgeon WINIFRED CHAUDHARY MD Training Personnel Supervisor n/a Pre-Operative Diagnosis Left Intertrochanteric Femur Fracture Post-Operative Diagnosis same Operative Report Date of Procedure: Feb 15, 2021 Name of Procedure Performed: Intramedullary Nailing of Left Intertrochanteric Femur Fracture Description & Findings After obtaining informed consent and marking the patient in the preoperative holding area, the patient was administered IV antibiotics and taken to the operating room. Anesthesia was induced. Patient was transferred to the fracture table. Surgical timeout was taken. The left lower extremity was placed in the traction spar and the right was placed in the well leg littlejohn. The left lower extremity was prepped and draped in the usual sterile fashion. Incision was made just proximal to the greater trochanter. Blunt dissection was performed down to the tip of the trochanter. A guide wire was placed through a trochanteric entry point. Position of the wire was confirmed using C-arm. An entry reamer was then placed over the guidewire and reamed to the level of the lesser trochanter. A trochanteric gamma nail with a 130 degree neck angle was selected and assembled on the back table. Nail was inserted through the trochanteric entry point and seated by hand. Position of the nail was confirmed using C-arm. A guide wire was placed for the cephalomedullary screw. Version of the wire was obtained on the lateral. Measurement was taken and the reamer was set to 90 mm. Reamer was used over the guidewire and then the cephalomedullary screw was placed. Position of the cephalomedullary screw was confirmed on C-arm. Set screw was then tightened onto the cephalomedullary screw and then backed off 1/4 turn. Attention was then turned to the distal screw and using the provided guides, a 32.5 mm screw was placed through the static portion of the distal slot. Final C arm images were obtained, demonstrated appropriate placement of hardware with adequate reduction, and were transferred to PACS. Incision sites were irrigated with normal saline. Closed subcutaneously with 2- 0 vicryl and skin was closed with shilpa. Dressed with xeroform, 4x4s, ABD, and tape. Patient tolerated the procedure well and was stable to the recovery room. Anesthesia Type General Estimated Blood Loss 100 mL Specimen(s) collected/removed None WINIFRED CHAUDHARY MD Feb 15, 2021 13:25
[2021-02-15] MEDS ORDERED: MEPERIDINE (DEMEROL) INJ 50 MG/ML IVP ONE (13:30)
[2021-02-15] MEDS ORDERED: ONDANSETRON 4 MG/2 ML (SDV) Z0FRAN IVP PRN (13:30)
[2021-02-15] MEDS ORDERED: NALOXONE 0.4 MG/ML 1 ML (NARCAN) VIAL IV PRN (13:30)
[2021-02-15] MEDS ORDERED: morphine INJ 10 MG/ML 1ML (SYR OR VIAL) IVP ONE (13:30)
[2021-02-15] MEDS: ONDANSETRON 4 MG/2 ML (SDV) Z0FRAN IV PRN ×2 (16:10→23:21)
--- NOTE | 2021-02-15 18:06 | History & Physical-Hospitalist ---
History of Present Illness HPI/Chief Complaint Cassandra Araujo is an 85 year old female with PMH cryptogenic stroke, depression, former smoker, who presented after a fall. She was out walking her dog and fell into a hole that was covered by leaves. She denies any loss of consciousness. She did not feel lightheaded or dizzy. She denies chest pain or shortness of breath. She was in her normal state of health prior to the fall. She is a former smoker but quit many years ago. She does not drink alcohol. She is very active and walks her dog every day. Source: patient Exam Limitations: no limitations Date Seen 02/15/21 Time Seen by a Provider: 10:35 Attending Physician Lana Bowen MD PCP Carlo Daniels MD Referring Physician Date of Admission Feb 14, 2021 at 15:20 Home Medications & Allergies Home Medications Reviewed patient Home Medication Reconciliation performed by pharmacy medication reconciliations precision agriculture technician and/or nursing. Patients Allergies have been reviewed. Allergies Allergies Coded Allergies celecoxib (Unverified Allergy, Mild, RASH, 03/16/10) Penicillins (Unverified Allergy, Unknown, 01/05/14) Past Nrzgihc-Cihhyj-Dkpctb Hx Patient Social History Tobacco Use?: No Smoking Status: Former Smoker Substance use?: No Alcohol Use?: Yes Alcohol type: Wine Alcohol Frequency: Daily Additional Alcohol Comments: 1 glass five days a week Pt feels they are or have been: No Immunizations Up To Date Date of Influenza Vaccine: Jan 24, 2021 First/Initial COVID19 Vaccinat: 2020 Second COVID19 Vaccination Bola: 2020 Tetanus Booster (TDap): More Than 5 Years Date of Pneumonia Vaccine: Dec 05, 2015 Seasonal Allergies Seasonal Allergies: No Current Status status: No Advance Directives: No Communicates: Verbally Primary Language: Jamaican Preferred Spoken Language: Jamaican Is interpretation needed?: No Sensory deficits: Vision impairment Implanted or Applied Medical D: None Past Medical History Surgeries: Eye Surgery, Hysterectomy Currently Using CPAP: No Currently Using BIPAP: No Stroke Sexually Transmitted Disease: No HIV/AIDS: No Osteoporosis Cataract Depression Adverse Reaction/Blood Tranf: No Family Medical History Reviewed Nursing Family Hx Heart Disease, Hypertension Review of Systems Constitutional: no symptoms reported, see HPI Physical Exam Physical Exam Vital Signs Vital Signs - First Documented 02/14/21 13:30 Temp 35.6 Pulse 75 Resp 16 B/P (MAP) 127/80 (96) Pulse Ox 96 O2 Delivery Room Air Capillary Refill : Less Than 3 SecondsLess Than 3 Seconds Height, Weight, BMI Height: 5'2" Weight: 109lbs. 0.0oz. 49.263118ew; 18.10 BMI Method:Stated General Appearance: No Apparent Distress, Thin HEENT: PERRL/EOMI, Pharynx Normal Neck: Normal Inspection, Supple Respiratory: Lungs Clear, Normal Breath Sounds, No Respiratory Distress Cardiovascular: Regular Rate, Rhythm, No Edema, No Murmur Gastrointestinal: Normal Bowel Sounds, Non Tender, Soft Extremity: Normal Inspection, Non Tender, No Pedal Edema Neurologic/Psychiatric: Alert, Oriented x3, Normal Mood/Affect Skin: Normal Color, Warm/Dry Results Results/Procedures Labs Laboratory Tests 02/14/21 14:05 02/14/21 14:45 02/15/21 06:15 Patient resulted labs reviewed. Imaging: Reviewed Imaging Report Assessment/Plan Admission Diagnosis Nondisplaced closed intertrochanteric fracture of the left femur Admission Status: Inpatient Order (span 2 midnights) Reason for Inpatient Admission: Hip surgery Assessment and Plan Hip fracture Ground level fall s/p surgical repair 02/15 Pain regimen Bowel regimen Incentive spriometer PT/OT IRF evaluation COPD Continue inhalers History of stroke Hold Plavix Low BMI Clinically significant, no acute management needs DVT prophylaxis: Lovenox Diagnosis/Problems Diagnosis/Problems (1) Nondisplaced intertrochanteric fracture of left femur, initial encounter for closed fracture Status: Acute (2) History of stroke Status: Chronic (3) BMI less than 19,adult Status: Acute LANA BOWEN MD Feb 15, 2021 18:06
--- NOTE | 2021-02-15 18:18 | Diagnostic Imaging Report ---
INDICATION: Fluoroscopy for left hip surgery. Fluoroscopy was provided in the OR during left hip surgery. 50 seconds of fluoroscopic time was utilized. Three images were obtained demonstrating intramedullary nail and compression screw transfixing the intertrochanteric left hip fracture. Alignment is anatomic. IMPRESSION: Fluoroscopy during left hip ORIF. Dictated by: Dictated on workstation # [id number]
[2021-02-15] MEDS ORDERED: ACETAMINOPHEN 325 MG TABLET PO PRN (18:30)
[2021-02-15] MEDS ORDERED: ANTACID SUSP 30 ML UDC (MYLANTA) PO PRN (18:30)
[2021-02-15] MEDS ORDERED: polyethylene glycoL POWDER 17 GM (MIRALAX) PACK PO PRN (18:30)
[2021-02-15] MEDS: MELATONIN 3 MG TABLET PO PRN (23:21)
[2021-02-15] MEDS: SENNOSIDES 8.6 MG (SENOKOT) TAB PO SCH (23:21)
[2021-02-15] MEDS: ENOXAPARIN 30 MG/0.3 ML (LOVENOX) SYR SC SCH (23:21)
[2021-02-15] MEDS: DOCUSATE SODIUM 100 MG (COLACE) CAP PO SCH (23:21)
[2021-02-16 04:00] VITALS: BP 97/52
[2021-02-16 05:56] LABS: HEMOGLOBIN 12.4 g/dL (11.5-16.0)
[2021-02-16 06:27] LABS: CALCIUM 8.6 MG/DL (8.5-10.1); CREATININE SERUM 0.67 MG/DL (0.60-1.30)
[2021-02-16 08:00] VITALS: BP 107/72
[2021-02-16] MEDS: RT-ALBUTEROL/IPRATROPIUM 3 ML (DUONEB) VIAL INH SCH ×2 (08:08→21:42)
[2021-02-16] MEDS: RT--FLUTICASONE/SALMETEROL 113-14 (AIRDUO RespiCLICK) IH SCH (08:09)
[2021-02-16] MEDS: DOCUSATE SODIUM 100 MG (COLACE) CAP PO SCH ×2 (09:26→21:34)
[2021-02-16] MEDS: SENNOSIDES 8.6 MG (SENOKOT) TAB PO SCH ×2 (09:26→21:34)
[2021-02-16] MEDS: D5 1/2 NS 1000 ML IV SOLUTION 1,000 ML IV SCH ×2 (09:26→21:35)
--- NOTE | 2021-02-16 09:42 | Physical Therapy Evaluation ---
PT Evaluation-General Medical Diagnosis Admission Date Feb 14, 2021 at 15:20 Medical Diagnosis: fall/intertrochanteric hip fracture left Onset Date: Feb 14, 2021 Therapy Diagnosis Therapy Diagnosis: debility/weakness Height/Weight Height (Feet): 5 Height (Inches): 2 Weight (Pounds): 109 Weight (Ounces): 0.0 Precautions Precautions/Isolations: Fall Prevention, Standard Precautions Weight Bear Status Right Lower Extremity: Right Full Weight Bearing Left Lower Extremity: Left Weight Bearing/Tolerated Referral Physician: Deisy Reason for Referral: Evaluation/Treatment Medical History Pertinent Medical History: COPD, CVA Current History EMS secondary to fall in hole in back yard Reviewed History: Yes Social History Home: Apartment Current Living Status: Alone Prior Prior Level of Function SCALE: Activities may be completed with or without assistive devices. 2-Nlhbctdive-ovpgjdl completes the activity by him/herself with no assistance from a helper. 5-Set-up or Clean-up Assistance-helper sets up or cleans up; patient completes activity. [place] assists only prior to or following the activity. 4-Supervision or Touching Assistance-helper provides verbal cues and/or touching/steadying and/or contact guard assistance as patient completes activity. Assistance may be provided throughout the activity or intermittently. 3-Partial/Moderate Assistance-helper does LESS THAN HALF the effort. [place] lifts, holds or supports trunk or limbs, but provides less than half the effort. 2-Substantial/Maximal Assistance-helper does MORE THAN HALF the effort. [place] lifts or holds trunk or limbs and provides more than half the effort. 3-Cxqmmpunl-gcyxlf does ALL the effort. Patient does none of the effort to complete the activity. Or, the assistance of 2 or more helpers is required for the patient to complete the activity. If activity was not attempted, code reason: 7-Patient Refused. 9-Not Applicable-not attempted and the patient did not perform the activity before the current illness, exacerbation or injury. 10-Not Attempted due to Environmental Limitations-(lack of equipment, weather restraints, etc.). 88-Not Attempted due to Medical Conditions or Safety Concerns. Bed Mobility: 6 Transfers (B,C,W/C): 6 Gait: 6 Stairs: 6 Indoor Mobility (Ambulation): Independent Stairs: Independent Prior Devices Use: None PT Evaluation-Current Subjective Patient voices reluctance to participate with PT due to left LE pain. Pain Numeric Pain Scale: 8 Location: Left Location Body Site: Hip Pain Description: Acute Objective Patient Orientation: Normal For Age Attachments: James Catheter ROM/Strength ROM Lower Extremities bilateral LE WFL Strength Lower Extremities right LE 3+/5 grossly/left LE 3-/5 grossly Integumentary/Posture Bladder Incontinence: James Cath Posture refer to nursing notes Neuromuscular (Tone, Coordination, Reflexes) grossly intact Sensory Vision: Wears Glasses Hearing: Functional Transfers Roll Left to Right (QC): 2 Lying to Sitting/Side of Bed(Q: 2 Sit to Stand (QC): 3 Chair/Uzi-mq-Utuvq Xfer(QC): 3 Gait Does the Patient Walk?: Yes Mode of Locomotion: Walk Anticipated Mode of Locomotion: Walk Walk 10 feet (QC): 3 Walk 50 ft with 2 Turns(QC): 3 Walk 150 ft (QC): 88 Distance: 50' Gait Assistive Device: FWW Comments/Gait Description very slow, step to, antalgic gait sequence Balance Sitting Static: Normal Sitting Dynamic: Normal Standing Static: Fair Standing Dynamic: Fair Assessment/Needs 85 y.o. female, will benefit from skilled PT to address functional strength and mobility to improve current LOF to safely return to home at maximum LOF. Rehab Potential: Fair PT Longterm Goals Pot Room Supervisor Goals PT Longterm Goals Time Frame: Mar 17, 2021 Roll Left & Right (QC): 5 Sit to Lying (QC): 5 Lying-Sitting on Side/Bed(QC): 5 Sit to Stand (QC): 5 Chair/Myf-dg-Jiiac Xfer(QC): 5 Toilet Transfer (QC): 5 Walk 10 feet (QC): 5 Walk 50ft with 2 Turns (QC): 5 Walk 150 ft (QC): 5 1 Step (curb) (QC): 5 PT Plan Problem List Problem List: Activity Tolerance, Functional Strength, Safety, Balance, Gait, Transfer, Bed Mobility Treatment/Plan Treatment Plan: Continue Plan of Care Treatment Plan: Bed Mobility, Education, Functional Activity Lara, Functional Strength, Gait, Safety, Therapeutic Exercise, Transfers Treatment Duration: Mar 17, 2021 Frequency: 11 times per week Estimated Hrs Per Day: .5 hour per day Patient and/or Family Agrees t: Yes Time/GCodes Time In: 740 Time Out: 810 Total Billed Treatment Time: 30 Total Billed Treatment 1 visit EVModC 15 min GT 15 min JYOTHI SARABIA PT Feb 16, 2021 09:42
--- NOTE | 2021-02-16 10:16 | Progress Note - Ortho ---
Progress Note Subjective Date of Exam 02/16/21 Chief Complaint Ortho POD #1 IM Nailing of L IT Femur Fx HPI/Events since last exam doing well, up in chair, some difficulty with pain Review of Systems - Allergies: Coded Allergies: celecoxib (Unverified Allergy, Mild, RASH, 03/16/10) Penicillins (Unverified Allergy, Unknown, 01/05/14) Home Meds Reported Medications Biotin (Biotin) 1,000 Mcg Tablet, 1000 MCG PO DAILY, TAB 02/15/21 Calcium Carbonate/Mag Oxide/Zn (Xxaxxup-Buiurqjju-Ijbn Tablet) 1 Each Tablet, 1 EACH PO DAILY, TAB 02/15/21 Vit A,C & E/Lutein/Minerals (Ocuvite with Lutein Tablet) 1 Each Tablet, 1 EACH PO DAILY, TAB 02/15/21 Multivitamin (Multivitamin) 1 Each Tablet, 1 EACH PO DAILY, TAB 02/15/21 L.acidoph & Paracasei,B.lactis (Probiotic) 1 Each Capsule, 1 EACH PO DAILY, CAP 02/15/21 [place]-3/Dha/Epa/Fish Oil (Fish Oil 1,000 mg Softgel) 1 Each Capsule, 1 EACH PO DAILY, CAP 02/15/21 Cyanocobalamin (Vitamin B-12) (Vitamin B-12) 500 Mcg Tablet, 500 MCG PO DAILY, TAB 02/15/21 Cholecalciferol (Vitamin D3) (Vitamin D3) 25 Mcg Capsule, 25 MCG PO DAILY, CAP 02/15/21 Albuterol Sulfate (PROAIR HFA) 1 Puff Puff, 2 PUFF IH Q4H PRN for SHORTNESS OF BREATH, EA 1 PUFF = 90 MCG 02/15/21 Fluticasone/Vilanterol (Breo Ellipta 100-25 Mcg INH) 1 Each Blst.w.dev, 1 EACH IH DAILY 02/15/21 Escitalopram Oxalate (Escitalopram Oxalate) 10 Mg Tablet, 10 MG PO HS, TAB 02/15/21 Clopidogrel Bisulfate (Clopidogrel) 75 Mg Tablet, 75 MG PO HS, TAB 02/15/21 Discontinued Reported Medications Teriparatide (Forteo) 600 Mcg/2.4 Ml Syr, 20 MCG SQ DAILY 11/15/14 Escitalopram Oxalate (Lexapro) 5 Mg Tablet, 5 MG PO DAILY 11/15/14 Cholecalciferol (Vitamin D3) (Vitamin D) 2,000 Unit Capsule, 2000 UNIT PO DAILY 11/15/14 Folic Acid/Multivit-Min/Lutein (Multi-Vitamin Gummies) 1 Each Tab.chew, 1 TAB PO TID 11/15/14 Cyanocobalamin (Vitamin B12) 50 Mcg Tablet, 50 MCG PO DAILY, TAB 01/05/14 Calcium Carbonate/Vitamin D3 (Calcium 600 + D Caplet) 1 Each Tablet, 1 TAB PO BID 01/05/14 Vit C/Vit E/Lutein/Min/[place]-3 (Ocuvite Softgel) 1 Each Capsule, 1 CAP PO DAILY, CAP 01/05/14 Biotin (Biotin) 2,500 Mcg Capsule, 5000 MCG PO DAILY, CAP 01/05/14 [place] 3 Polyunsat Fatty Acids (Fish Oil) 1,000 Mg Cap, 1000 MG PO TID 07/09/11 Discontinued Scripts Tramadol HCl (Ultram) 50 Mg Tablet, 50 MG PO Q6H PRN for PAIN, #10 TAB Prov:BRIDGETTE DHILLON LOG CUT OFF SAWYER 05/03/16 Atorvastatin Calcium (Lipitor) 10 Mg Tablet, 10 MG PO DAILY, #30 TAB 6 Refills Prov:JACOB MEIER MD 11/17/14 Clopidogrel Bisulfate (Clopidogrel) 75 Mg Tablet, 75 MG PO DAILY, #30 TAB 11 Refills Prov:JACOB MEIER MD 11/17/14 Objective Exam L Hip: Dressing C/D/I, +DF of ankle, no s/s of DVT Vital Signs Vital Signs Date Time Temp Pulse Resp B/P (MAP) Pulse Ox O2 Delivery O2 Flow Rate FiO2 02/16/21 08:14 Nasal Cannula 2.00 02/16/21 08:09 95 Nasal Cannula 2.00 02/16/21 08:07 85 Room Air 02/16/21 08:00 36.5 81 20 107/72 (84) 99 Room Air 02/16/21 04:00 36.4 78 20 97/52 (67) 94 Room Air 02/15/21 23:31 36.8 85 20 118/61 (80) 96 Room Air 02/15/21 20:55 95 Nasal Cannula 2.00 02/15/21 20:00 93 Nasal Cannula 2.00 02/15/21 20:00 37.0 86 20 116/58 (77) 98 Nasal Cannula 2.00 02/15/21 18:58 35.6 75 97 02/15/21 14:10 Room Air 02/15/21 14:10 37.0 20 127/72 (90) 97 Room Air 02/15/21 14:00 20 144/79 (100) 95 Room Air 02/15/21 14:00 Room Air 02/15/21 13:50 20 130/79 (96) 95 Room Air 02/15/21 13:45 Room Air 02/15/21 13:40 20 146/82 (103) 95 Room Air 02/15/21 13:30 OxyMask 3 02/15/21 13:30 20 153/85 (107) 100 OxyMask 3 02/15/21 13:20 20 150/83 (105) 100 OxyMask 3 02/15/21 13:17 OxyMask 3 02/15/21 13:17 37.0 20 144/71 (95) 100 OxyMask 3 I & O 02/16/21 07:00 Intake Total 830 ml Output Total 2150 ml Balance -1320 ml Lab Results Laboratory Tests 02/16/21 05:32: Hemoglobin 12.4, Hematocrit 38, Sodium Level 138, Potassium Level 4.0, Chloride Level 105, Carbon Dioxide Level 23, Anion Gap 10, Blood Urea Nitrogen 7, Creatinine 0.67, Estimat Glomerular Filtration Rate 84, BUN/Creatinine Ratio 10, Glucose Level 132H, Calcium Level 8.6 Microbiology 02/14/21 MRSA Screen - Final, Complete Assessment and Plan Assessment L IT Femur Fx s/p IM Nailing Problem List L IT Femur Fx s/p IM Nailing Plan PT/OT DVT Prophylaxis Home health versus swing depending on progress Final Diagonsis L IT Femur Fx s/p IM Nailing Level of the visit: Level 3 (post op global) WINIFRED CHAUDHARY MD Feb 16, 2021 10:15
--- NOTE | 2021-02-16 11:17 | Occupational Therapy Eval ---
OT Evaluation-General/PLF Medical Diagnosis Admission Date Feb 14, 2021 at 15:20 Medical Diagnosis: fall/intertrochanteric hip fracture left Onset Date: Feb 14, 2021 Therapy Diagnosis Therapy Diagnosis: decreased ADL status Height/Weight Height (Feet): 5 Height (Inches): 2 Weight (Pounds): 109 Weight (Ounces): 0.0 Precautions Precautions/Isolations: Fall Prevention, Standard Precautions Referral Physician: Deisy Referral Reason: Evaluation/Treatment Medical History Pertinent Medical History: COPD, CVA Current History ED due to fall in yard. L hip surgery, s/p IM Nail. Social History Home: Apartment Current Living Status: Children (grown son) ADL-Prior Level of Function SCALE: Activities may be completed with or without assistive devices. 4-Coystvexsx-fqcjzes completes the activity by him/herself with no assistance from a helper. 5-Set-up or Clean-up Assistance-helper sets up or cleans up; patient completes activity. [place] assists only prior to or following the activity. 4-Supervision or Touching Assistance-helper provides verbal cues and/or touching/steadying and/or contact guard assistance as patient completes activity. Assistance may be provided throughout the activity or intermittently. 3-Partial/Moderate Assistance-helper does LESS THAN HALF the effort. [place] lifts, holds or supports trunk or limbs, but provides less than half the effort. 2-Substantial/Maximal Assistance-helper does MORE THAN HALF the effort. [place] lifts or holds trunk or limbs and provides more than half the effort. 5-Majfijioz-ejbgmj does ALL the effort. Patient does none of the effort to complete the activity. Or, the assistance of 2 or more helpers is required for the patient to complete the activity. If activity was not attempted, code reason: 7-Patient Refused. 9-Not Applicable-not attempted and the patient did not perform the activity before the current illness, exacerbation or injury. 10-Not Attempted due to Environmental Limitations-(lack of equipment, weather restraints, etc.). 88-Not Attempted due to Medical Conditions or Safety Concerns. ADL PLOF Comments Pt reports IND with ADLs and functional mobility, no AD/AE Self Care: Independent Functional Cognition: Independent OT Current Status Subjective Pt up in recliner, family member in room. Mental Status/Objective Patient Orientation: Person, Place, Situation Attachments: James Catheter, IV, Oxygen Current Upper Extremity ROM WFL, BUE shoulder flexion to approx 150 degrees Upper Extremity Coordination WFL Upper Extremity Sensation WFL Upper Extremity Strength grossly 3/5 ADL-Treatment Eating (QC): 5 (per clincial judgment.) Oral Hygiene (QC): 5 (per clincial judgement) On/Off Footwear (QC): 2 (Per clincial judgment.) Other Treatments Pt seated in recliner, provided information about PLOF and home set up, and participated in UE screen. In order to increase BUE strength and functional activity tolerance, pt completed x15 reps each of the following: shoulder flexion, shoulder abduction, and front punch. Per PT evaluation, pt required max A with rolling and lying to sit EOB. QC 3 for sit to stand and bed to chair transfer. Pt received phone call, post tx, pt up in recliner, call light in reach and all needs met. Education OT Patient Education: Correct positioning, Energy conservation, Exercise program, Modified ADL techniques, Progress toward Goal/Update tx plan, Purpose o f tx/functional activities, Rehab process Teaching Recipient: Patient Teaching Methods: Discussion Response to Teaching: Verbalize Understanding OT Plate Straightener Goals Mcc Goals Time Frame: Mar 09, 2021 Eating (QC): 5 Oral Hygiene (QC): 5 Toileting Hygiene (QC): 4 Shower/Bathe Self (QC): 4 Upper Body Dressing (QC): 5 Lower Body Dressing (QC): 4 On/Off Footwear (QC): 4 Additional Goals: 1-Demonstrate ADL Tasks, 2-Verbalize Understanding, 3- ImproveStrength/Lara 1=Demonstrate adherence to instructed precautions during ADL tasks. 2=Patient will verbalize/demonstrate understanding of assistive devices/m odifications for ADL. 3=Patient will improve strength/tolerance for activity to enable patient to perform ADL's. OT Education/Plan Problem List/Assessment Assessment: Decreased Activ Tolerance, Decreased UE Strength, Impaired Funct Balance, Impaired I ADL's, Impaired Self-Care Skills Discharge Recommendations Plan/Recommendations: Continue POC Treatment Plan/Plan of Care Patient would benefit from OT for education, treatment and training to promote independence in ADL's, mobility, safety and/or upper extremity function for ADL's. Plan of Care: ADL Retraining, Functional Mobility, UE Funct Exercise/Act Treatment Duration: Mar 09, 2021 Frequency: 3 times per week (3-5 times per week) Rehab Potential: Fair Time/GCodes Start Time: 10:40 Stop Time: 10:50 Total Time Billed (hr/min): 10 Billed Treatment Time 1, GILLIAN NAVARRO OT Feb 16, 2021 11:17
[2021-02-16 12:00] VITALS: BP 105/64
--- NOTE | 2021-02-16 12:51 | Physical Therapy Daily Note ---
PT Daily Note-Current Subjective Patient agrees to PT. Family present. Mental Status Patient Orientation: Normal For Age Attachments: Oxygen, James Catheter, IV Transfers SCALE: Activities may be completed with or without assistive devices. 0-Elwynwvfia-edthyle completes the activity by him/herself with no assistance from a helper. 5-Set-up or Clean-up Assistance-helper sets up or cleans up; patient completes activity. [place] assists only prior to or following the activity. 4-Supervision or Touching Assistance-helper provides verbal cues and/or touching/steadying and/or contact guard assistance as patient completes activity. Assistance may be provided throughout the activity or intermittently. 3-Partial/Moderate Assistance-helper does LESS THAN HALF the effort. [place] lifts, holds or supports trunk or limbs, but provides less than half the effort. 2-Substantial/Maximal Assistance-helper does MORE THAN HALF the effort. [place] lifts or holds trunk or limbs and provides more than half the effort. 2-Rxkmrzkyx-zpyjvn does ALL the effort. Patient does none of the effort to complete the activity. Or, the assistance of 2 or more helpers is required for the patient to complete the activity. If activity was not attempted, code reason: 7-Patient Refused. 9-Not Applicable-not attempted and the patient did not perform the activity before the current illness, exacerbation or injury. 10-Not Attempted due to Environmental Limitations-(lack of equipment, weather restraints, etc.). 88-Not Attempted due to Medical Conditions or Safety Concerns. Sit to Stand (QC): 3 Weight Bearing Right Lower Extremity: Right Full Weight Bearing Left Lower Extremity: Left Weight Bearing/Tolerated Gait Training Distance: 125' Walk 10 feet (QC): 3 Walk 50 ft with 2 Turns(QC): 3 Gait Assistive Device: FWW slow, antalgic, step to pattern Exercises Seated Therapy Exercises: Long arc quads Seated Reps: 12 Assessment Current Status: Excellent Progress PT Residential Goals [place] Sousaphones Goals PT [place] Sousaphones Goals Time Frame: Mar 17, 2021 Roll Left & Right (QC): 5 Sit to Lying (QC): 5 Lying-Sitting on Side/Bed(QC): 5 Sit to Stand (QC): 5 Chair/Wek-pu-Blfom Xfer(QC): 5 Toilet Transfer (QC): 5 Walk 10 feet (QC): 5 Walk 50ft with 2 Turns (QC): 5 Walk 150 ft (QC): 5 1 Step (curb) (QC): 5 PT Plan Treatment/Plan Treatment Plan: Continue Plan of Care Treatment Plan: Bed Mobility, Education, Functional Activity Lara, Functional Strength, Gait, Safety, Therapeutic Exercise, Transfers Treatment Duration: Mar 17, 2021 Frequency: 11 times per week Estimated Hrs Per Day: .5 hour per day Patient and/or Family Agrees t: Yes Time/GCodes Time In: 1230 Time Out: 1248 Total Billed Treatment Time: 18 Total Billed Treatment 1 visit GT 18 min JYOTHI SARABIA PT Feb 16, 2021 12:51
[2021-02-16 16:10] VITALS: BP 121/60
--- NOTE | 2021-02-16 16:56 | Progress Note - Hospitalist ---
Subjective HPI/CC On Admission Date Seen by Provider: Feb 16, 2021 Time Seen by Provider: 11:25 Cassandra Araujo is an 85 year old female with PMH cryptogenic stroke, depression, former smoker, who presented after a fall. She was out walking her dog and fell into a hole that was covered by leaves. She denies any loss of consciousness. Sh jaison did not feel lightheaded or dizzy. She denies chest pain or shortness of breath. She was in her normal state of health prior to the fall. She is a former smoker but quit many years ago. She does not drink alcohol. She is very active and walks her dog every day. Subjective/Events-last exam She is sitting in her bedside chair. She worked with physical therapy. She is eating and drinking. She has no complaints. Objective Exam Vital Signs Vital Signs Date Time Temp Pulse Resp B/P (MAP) Pulse Ox O2 Delivery O2 Flow Rate FiO2 02/16/21 16:10 37.2 86 18 121/60 (80) 96 Room Air 02/16/21 08:14 2.00 Capillary Refill : Less Than 3 SecondsLess Than 3 Seconds General Appearance: No Apparent Distress, Thin Respiratory: Lungs Clear, Normal Breath Sounds, No Respiratory Distress Cardiovascular: Regular Rate, Rhythm, No Edema, No Murmur Gastrointestinal: Normal Bowel Sounds, Non Tender, Soft Extremity: Normal Inspection, Non Tender, No Pedal Edema Neurologic/Psychiatric: Alert, Oriented x3, No Motor/Sensory Deficits, Normal Mood/Affect Skin: Normal Color, Warm/Dry Results/Procedures Lab Laboratory Tests 02/16/21 05:32 Patient resulted labs reviewed. Imaging: Reviewed Imaging Report Assessment/Plan Assessment and Plan Assess & Plan/Chief Complaint Hip fracture Ground level fall s/p surgical repair 02/15 Pain regimen Bowel regimen Incentive spriometer PT/OT IRF evaluation COPD Continue inhalers History of stroke Hold Plavix Low BMI Clinically significant, no acute management needs DVT prophylaxis: Lovenox Diagnosis/Problems Diagnosis/Problems (1) Nondisplaced intertrochanteric fracture of left femur, initial encounter for closed fracture Status: Acute (2) History of stroke Status: Chronic (3) BMI less than 19,adult Status: Acute LANA BOWEN MD Feb 16, 2021 16:56
[2021-02-16] MEDS: CYCLOBENZAPRINE 10 MG (FLEXERIL) TAB PO PRN (17:22)
[2021-02-16 19:52] VITALS: BP 143/71
[2021-02-16] MEDS: ENOXAPARIN 30 MG/0.3 ML (LOVENOX) SYR SC SCH (21:33)
[2021-02-17] VITALS (7 sets, daily range): BP systolic 92–148; BP diastolic 52–69
[2021-02-17 05:47] LABS: HEMOGLOBIN 12.2 g/dL (11.5-16.0)
[2021-02-17] MEDS: RT--FLUTICASONE/SALMETEROL 113-14 (AIRDUO RespiCLICK) IH SCH (07:30)
[2021-02-17] MEDS: RT-ALBUTEROL/IPRATROPIUM 3 ML (DUONEB) VIAL INH SCH ×2 (07:30→21:34)
[2021-02-17] MEDS: CYCLOBENZAPRINE 10 MG (FLEXERIL) TAB PO PRN (10:23)
[2021-02-17] MEDS: SENNOSIDES 8.6 MG (SENOKOT) TAB PO SCH ×2 (10:23→21:10)
[2021-02-17] MEDS: DOCUSATE SODIUM 100 MG (COLACE) CAP PO SCH ×2 (10:23→21:10)
[2021-02-17] MEDS: D5 1/2 NS 1000 ML IV SOLUTION 1,000 ML IV SCH (12:33)
--- NOTE | 2021-02-17 18:07 | Progress Note - Hospitalist ---
Subjective HPI/CC On Admission Date Seen by Provider: Feb 17, 2021 Time Seen by Provider: 10:25 Cassandra Araujo is an 85 year old female with PMH cryptogenic stroke, depression, former smoker, who presented after a fall. She was out walking her dog and fell into a hole that was covered by leaves. She denies any loss of consciousness. [place] did not feel lightheaded or dizzy. She denies chest pain or shortness of breath. She was in her normal state of health prior to the fall. She is a former smoker but quit many years ago. She does not drink alcohol. She is very active and walks her dog every day. Subjective/Events-last exam She is doing well. She has eaten some breakfast. She is sitting in her chair. Her pain is improving. Objective Exam Vital Signs Vital Signs Date Time Temp Pulse Resp B/P (MAP) Pulse Ox O2 Delivery O2 Flow Rate FiO2 02/17/21 15:27 90 22 100/64 (76) 92 Room Air 02/17/21 12:00 36.8 2.00 Capillary Refill : Less Than 3 SecondsLess Than 3 Seconds General Appearance: No Apparent Distress, Chronically ill, Thin Respiratory: Lungs Clear, Normal Breath Sounds, No Respiratory Distress Cardiovascular: Regular Rate, Rhythm, No Edema, No Murmur Gastrointestinal: Normal Bowel Sounds, Non Tender, Soft Extremity: Normal Inspection, Non Tender, No Pedal Edema Neurologic/Psychiatric: Alert, Oriented x3, No Motor/Sensory Deficits, Normal Mood/Affect Skin: Normal Color, Warm/Dry Results/Procedures Lab Laboratory Tests 02/17/21 05:28 Patient resulted labs reviewed. Imaging: Reviewed Imaging Report Assessment/Plan Assessment and Plan Assess & Plan/Chief Complaint Hip fracture Ground level fall s/p surgical repair 02/15 Pain regimen Bowel regimen Incentive spriometer PT/OT IRF evaluation COPD Continue inhalers History of stroke Resume Plavix Low BMI Clinically significant, no acute management needs DVT prophylaxis: Lovenox Diagnosis/Problems Diagnosis/Problems (1) Nondisplaced intertrochanteric fracture of left femur, initial encounter for closed fracture Status: Acute (2) History of stroke Status: Chronic (3) BMI less than 19,adult Status: Acute LANA BOWEN MD Feb 17, 2021 18:07
[2021-02-17] MEDS: MELATONIN 3 MG TABLET PO PRN (21:10)
[2021-02-17] MEDS: ENOXAPARIN 30 MG/0.3 ML (LOVENOX) SYR SC SCH (21:10)
[2021-02-18] MEDS: RT-ALBUTEROL/IPRATROPIUM 3 ML (DUONEB) VIAL INH SCH ×3 (02:15→21:53)
[2021-02-18 04:00] VITALS: BP 149/64
[2021-02-18] MEDS: D5 1/2 NS 1000 ML IV SOLUTION 1,000 ML IV SCH (05:51)
[2021-02-18 05:56] LABS: HEMOGLOBIN 11.8 g/dL (11.5-16.0)
[2021-02-18 08:09] VITALS: BP 107/66
[2021-02-18] MEDS: RT--FLUTICASONE/SALMETEROL 113-14 (AIRDUO RespiCLICK) IH SCH (09:16)
[2021-02-18] MEDS: SENNOSIDES 8.6 MG (SENOKOT) TAB PO SCH ×2 (09:53→22:02)
[2021-02-18] MEDS: CLOPIDOGREL 75 MG (PLAVIX) TABLET PO SCH (09:53)
[2021-02-18] MEDS: DOCUSATE SODIUM 100 MG (COLACE) CAP PO SCH ×2 (09:53→22:02)
[2021-02-18] MEDS: CYCLOBENZAPRINE 10 MG (FLEXERIL) TAB PO PRN (09:53)
[2021-02-18 12:34] VITALS: BP 126/101
[2021-02-18 16:06] VITALS: BP 112/72
[2021-02-18 19:44] VITALS: BP 127/82
[2021-02-18] MEDS: ENOXAPARIN 30 MG/0.3 ML (LOVENOX) SYR SC SCH (22:02)
[2021-02-18 22:54] VITALS: BP 127/82
--- NOTE | 2021-02-18 22:57 | Progress Note - Hospitalist ---
Subjective HPI/CC On Admission Date Seen by Provider: Feb 18, 2021 Time Seen by Provider: 10:30 Cassandra Araujo is an 85 year old female with PMH cryptogenic stroke, depression, former smoker, who presented after a fall. She was out walking her dog and fell into a hole that was covered by leaves. She denies any loss of consciousness. Sh jaison did not feel lightheaded or dizzy. She denies chest pain or shortness of breath. She was in her normal state of health prior to the fall. She is a former smoker but quit many years ago. She does not drink alcohol. She is very active and walks her dog every day. Subjective/Events-last exam She is doing well. She is up and walking. She has no complaints. Objective Exam Vital Signs Vital Signs Date Time Temp Pulse Resp B/P (MAP) Pulse Ox O2 Delivery O2 Flow Rate FiO2 02/18/21 21:53 91 Room Air 02/18/21 19:44 37.3 88 22 127/82 (97) 02/18/21 09:16 0.00 Capillary Refill : Less Than 3 SecondsLess Than 3 Seconds General Appearance: No Apparent Distress, Chronically ill, Thin Respiratory: Lungs Clear, Normal Breath Sounds, No Respiratory Distress Cardiovascular: Regular Rate, Rhythm, No Edema, No Murmur Gastrointestinal: Normal Bowel Sounds, Non Tender, Soft Extremity: Normal Inspection, Non Tender, No Pedal Edema Neurologic/Psychiatric: Alert, No Motor/Sensory Deficits, Normal Mood/Affect Skin: Normal Color, Warm/Dry Results/Procedures Lab Laboratory Tests 02/18/21 05:46 Patient resulted labs reviewed. Imaging: Reviewed Imaging Report Assessment/Plan Assessment and Plan Assess & Plan/Chief Complaint Hip fracture Ground level fall s/p surgical repair 02/15 Pain regimen Bowel regimen Incentive spriometer PT/OT IRF evaluation COPD Continue inhalers History of stroke Continue Plavix Low BMI Clinically significant, no acute management needs DVT prophylaxis: Lovenox Diagnosis/Problems Diagnosis/Problems (1) Nondisplaced intertrochanteric fracture of left femur, initial encounter for closed fracture Status: Acute (2) History of stroke Status: Chronic (3) BMI less than 19,adult Status: Acute LANA BOWEN MD Feb 18, 2021 22:57
[2021-02-18] MEDS ORDERED: RT-ALBUTEROL/IPRATROPIUM 3 ML (DUONEB) VIAL INH PRN (23:00)
[2021-02-19 00:30] VITALS: BP 125/77
[2021-02-19 04:45] VITALS: BP 127/83
[2021-02-19 08:00] VITALS: BP 113/62
[2021-02-19] MEDS: RT--FLUTICASONE/SALMETEROL 113-14 (AIRDUO RespiCLICK) IH SCH (08:38)
[2021-02-19] MEDS: CLOPIDOGREL 75 MG (PLAVIX) TABLET PO SCH (09:23)
[2021-02-19] MEDS: DOCUSATE SODIUM 100 MG (COLACE) CAP PO SCH (09:23)
[2021-02-19] MEDS: SENNOSIDES 8.6 MG (SENOKOT) TAB PO SCH (09:23)
--- NOTE | 2021-02-19 10:33 | Physical Therapy Daily Note ---
PT Daily Note-Current Subjective Patient in recliner pre tx, agrees to PT, has no pain at rest but she says some minor pain when she is up. Appearance Patient in recliner post tx with nurse call, phone, tray, all needs met. Mental Status Patient Orientation: Person, Place, Situation Transfers SCALE: Activities may be completed with or without assistive devices. 9-Ynqlvvoqgh-vngcfwr completes the activity by him/herself with no assistance from a helper. 5-Set-up or Clean-up Assistance-helper sets up or cleans up; patient completes activity. [place] assists only prior to or following the activity. 4-Supervision or Touching Assistance-helper provides verbal cues and/or touching/steadying and/or contact guard assistance as patient completes activity. Assistance may be provided throughout the activity or intermittently. 3-Partial/Moderate Assistance-helper does LESS THAN HALF the effort. [place] lifts, holds or supports trunk or limbs, but provides less than half the effort. 2-Substantial/Maximal Assistance-helper does MORE THAN HALF the effort. [place] lifts or holds trunk or limbs and provides more than half the effort. 5-Nioqqrvoj-kynqbo does ALL the effort. Patient does none of the effort to complete the activity. Or, the assistance of 2 or more helpers is required for the patient to complete the activity. If activity was not attempted, code reason: 7-Patient Refused. 9-Not Applicable-not attempted and the patient did not perform the activity before the current illness, exacerbation or injury. 10-Not Attempted due to Environmental Limitations-(lack of equipment, weather restraints, etc.). 88-Not Attempted due to Medical Conditions or Safety Concerns. Sit to Stand (QC): 4 Chair/Pmk-pl-Jimbc Xfer(QC): 4 Toilet Transfer (QC): 4 SBA, patient required no assist for toileting, patient states she got out of bed without assist for her left leg for the first time today Weight Bearing Right Lower Extremity: Right Full Weight Bearing Left Lower Extremity: Left Weight Bearing/Tolerated Gait Training Distance: 160' Walk 10 feet (QC): 4 Walk 50 ft with 2 Turns(QC): 4 Walk 150 ft (QC): 4 Gait Persons Needed: 1 Gait Assistive Device: FWW Patient ambulates with SBA, slow but steady ambulation, she had to turn around and go back to the room because she needed to use the restroom (also SBA), otherwise she said she could go further. Exercises Seated Therapy Exercises: Ankle pumps, Long arc quads Seated Reps: 20 Treatments transfers, ambulation, toileting, LE strengthening Assessment Current Status: Fair Progress improving functional mobility, SBA with ambulation PT Crown Blocker Goals Mcc Goals PT Mcc Goals Time Frame: Mar 17, 2021 Roll Left & Right (QC): 5 Sit to Lying (QC): 5 Lying-Sitting on Side/Bed(QC): 5 Sit to Stand (QC): 5 Chair/Rct-it-Lsttb Xfer(QC): 5 Toilet Transfer (QC): 5 Walk 10 feet (QC): 5 Walk 50ft with 2 Turns (QC): 5 Walk 150 ft (QC): 5 1 Step (curb) (QC): 5 PT Plan Problem List Problem List: Activity Tolerance, Functional Strength, Safety, Balance, Gait, Transfer, Bed Mobility, ROM Treatment/Plan Treatment Plan: Continue Plan of Care Treatment Plan: Bed Mobility, Education, Functional Activity Lara, Functional Strength, Gait, Safety, Therapeutic Exercise, Transfers Treatment Duration: Mar 17, 2021 Frequency: 11 times per week Estimated Hrs Per Day: .5 hour per day Patient and/or Family Agrees t: Yes Safety Risks/Education Patient Education: Gait Training, Transfer Techniques, Correct Positioning, Safety Issues Teaching Recipient: Patient Teaching Methods: Demonstration, Discussion Response to Teaching: Reinforcement Needed Time/GCodes Time In: 1005 Time Out: 1024 Total Billed Treatment Time: 19 Total Billed Treatment 1 visit FA 19' RAMY JUSTICE PT Feb 19, 2021 10:33
--- NOTE | 2021-02-19 11:44 | Progress Note - Ortho ---
Progress Note Subjective Date of Exam 02/19/21 Chief Complaint POD #4 IM Nailing L IT Femur Fx HPI/Events since last exam has been making progress with therapy, pain is controlled, transferring to rehab floor Review of Systems - Allergies: Coded Allergies: celecoxib (Unverified Allergy, Mild, RASH, 03/16/10) Penicillins (Unverified Allergy, Unknown, 01/05/14) Home Meds Reported Medications Biotin (Biotin) 1,000 Mcg Tablet, 1000 MCG PO DAILY, TAB 02/15/21 Calcium Carbonate/Mag Oxide/Zn (Wqdbsdf-Vevsmgjeu-Aklq Tablet) 1 Each Tablet, 1 EACH PO DAILY, TAB 02/15/21 Vit A,C & E/Lutein/Minerals (Ocuvite with Lutein Tablet) 1 Each Tablet, 1 EACH PO DAILY, TAB 02/15/21 Multivitamin (Multivitamin) 1 Each Tablet, 1 EACH PO DAILY, TAB 02/15/21 L.acidoph & Paracasei,B.lactis (Probiotic) 1 Each Capsule, 1 EACH PO DAILY, CAP 02/15/21 Anthony-3/Dha/Epa/Fish Oil (Fish Oil 1,000 mg Softgel) 1 Each Capsule, 1 EACH PO DAILY, CAP 02/15/21 Cyanocobalamin (Vitamin B-12) (Vitamin B-12) 500 Mcg Tablet, 500 MCG PO DAILY, TAB 02/15/21 Cholecalciferol (Vitamin D3) (Vitamin D3) 25 Mcg Capsule, 25 MCG PO DAILY, CAP 02/15/21 Albuterol Sulfate (PROAIR HFA) 1 Puff Puff, 2 PUFF IH Q4H PRN for SHORTNESS OF BREATH, EA 1 PUFF = 90 MCG 02/15/21 Fluticasone/Vilanterol (Breo Ellipta 100-25 Mcg INH) 1 Each Blst.w.dev, 1 EACH IH DAILY 02/15/21 Escitalopram Oxalate (Escitalopram Oxalate) 10 Mg Tablet, 10 MG PO HS, TAB 02/15/21 Clopidogrel Bisulfate (Clopidogrel) 75 Mg Tablet, 75 MG PO HS, TAB 02/15/21 Discontinued Reported Medications Teriparatide (Forteo) 600 Mcg/2.4 Ml Syr, 20 MCG SQ DAILY 11/15/14 Escitalopram Oxalate (Lexapro) 5 Mg Tablet, 5 MG PO DAILY 11/15/14 Cholecalciferol (Vitamin D3) (Vitamin D) 2,000 Unit Capsule, 2000 UNIT PO DAILY 11/15/14 Folic Acid/Multivit-Min/Lutein (Multi-Vitamin Gummies) 1 Each Tab.chew, 1 TAB PO TID 11/15/14 Cyanocobalamin (Vitamin B12) 50 Mcg Tablet, 50 MCG PO DAILY, TAB 01/05/14 Calcium Carbonate/Vitamin D3 (Calcium 600 + D Caplet) 1 Each Tablet, 1 TAB PO BID 01/05/14 Vit C/Vit E/Lutein/Min/Anthony-3 (Ocuvite Softgel) 1 Each Capsule, 1 CAP PO DAILY, CAP 01/05/14 Biotin (Biotin) 2,500 Mcg Capsule, 5000 MCG PO DAILY, CAP 01/05/14 Anthony 3 Polyunsat Fatty Acids (Fish Oil) 1,000 Mg Cap, 1000 MG PO TID 07/09/11 Discontinued Scripts Tramadol HCl (Ultram) 50 Mg Tablet, 50 MG PO Q6H PRN for PAIN, #10 TAB Prov:BRIDGETTE DHILLON CONFERENCE INTERPRETER 05/03/16 Atorvastatin Calcium (Lipitor) 10 Mg Tablet, 10 MG PO DAILY, #30 TAB 6 Refills Prov:JACOB MEIER MD 11/17/14 Clopidogrel Bisulfate (Clopidogrel) 75 Mg Tablet, 75 MG PO DAILY, #30 TAB 11 Refills Prov:JACOB MEIER MD 11/17/14 Objective Exam L Hip: Dressing C/D/I, +DF, no s/s of DVT Vital Signs Vital Signs Date Time Temp Pulse Resp B/P (MAP) Pulse Ox O2 Delivery O2 Flow Rate FiO2 02/19/21 09:05 Room Air 02/19/21 08:39 93 Room Air 02/19/21 08:00 36.1 84 18 113/62 (79) 91 Room Air 02/19/21 04:45 36.9 96 20 127/83 (98) 93 Room Air 02/19/21 00:30 37.5 68 20 125/77 (93) 93 Room Air 02/18/21 22:54 37.3 88 82 02/18/21 21:53 91 Room Air 02/18/21 20:00 96 Room Air 02/18/21 19:44 37.3 88 22 127/82 (97) 94 Room Air 02/18/21 16:06 36.6 87 20 112/72 (85) 94 Room Air 02/18/21 14:40 36.6 02/18/21 14:09 38.0 02/18/21 12:34 38.0 97 20 126/101 (109) 88 Room Air I & O 02/19/21 07:00 Intake Total 2340 ml Output Total 800 ml Balance 1540 ml Lab Results Microbiology 02/14/21 MRSA Screen - Final, Complete Assessment and Plan Assessment L IT Femur Fx s/p IM Nailing Problem List L IT Femur Fx s/p IM Nailing Plan Continue therapy Agree with rehab prior to home DVT Prophylaxis Final Diagonsis L IT Femur Fx s/p IM Nailing Level of the visit: Level 3 (post op global) WINIFRED CHAUDHARY MD Feb 19, 2021 11:44
--- NOTE | 2021-02-19 22:56 | Discharge Summary ---
Discharge Summary Hospital Course Was the Problem List Reviewed?: Yes Problems/Dx: (1) Nondisplaced intertrochanteric fracture of left femur, initial encounter for closed fracture Status: Acute (2) History of stroke Status: Chronic (3) BMI less than 19,adult Status: Acute Hospital Course Date of Admission: Feb 14, 2021 at 15:20 Admission Diagnosis : Family Physician/Provider: Carlo Daniels MD Date of Discharge: 02/19/21 Discharge Diagnosis: [ ] Hospital Course: [ ] Labs and Pending Lab Test: Microbiology 02/14/21 MRSA Screen - Final, Complete Home Meds Active Reported Biotin 1,000 Mcg Tablet 1,000 Mcg PO DAILY Utssrrf-Ldosrlgic-Pqyd Tablet (Calcium Carbonate/Mag Oxide/Zn) 1 Each Tablet 1 Each PO DAILY Ocuvite with Lutein Tablet (Vit A,C & E/Lutein/Minerals) 1 Each Tablet 1 Each PO DAILY Multivitamin 1 Each Tablet 1 Each PO DAILY Probiotic (L.acidoph & Paracasei,B.lactis) 1 Each Capsule 1 Each PO DAILY Fish Oil 1,000 mg Softgel (Naylor-3/Dha/Epa/Fish Oil) 1 Each Capsule 1 Each PO DAILY Vitamin B-12 (Cyanocobalamin (Vitamin B-12)) 500 Mcg Tablet 500 Mcg PO DAILY Vitamin D3 (Cholecalciferol (Vitamin D3)) 25 Mcg Capsule 25 Mcg PO DAILY Proair Hfa (Albuterol Sulfate) 1 Puff Puff 2 Puff IH Q4H PRN Breo Ellipta 100-25 Mcg INH (Fluticasone/Vilanterol) 1 Each Blst.w.dev 1 Each IH DAILY Escitalopram Oxalate 10 Mg Tablet 10 Mg PO HS Clopidogrel (Clopidogrel Bisulfate) 75 Mg Tablet 75 Mg PO HS Discharge Physical Examination Vital Signs Vital Signs Date Time Temp Pulse Resp B/P (MAP) Pulse Ox O2 Delivery O2 Flow Rate FiO2 02/19/21 09:05 Room Air 02/19/21 08:39 93 02/19/21 08:00 36.1 84 18 113/62 (79) 02/18/21 09:16 0.00 Allergies: Coded Allergies: celecoxib (Unverified Allergy, Mild, RASH, 03/16/10) Penicillins (Unverified Allergy, Unknown, 01/05/14) Discharge Summary Date of Admission Feb 14, 2021 at 15:20 Date of Discharge Feb 19, 2021 at 11:45 Admission Diagnosis Nondisplaced closed intertrochanteric fracture of the left femur Discharge Diagnosis Hip fracture Ground level fall s/p surgical repair 02/15 Pain regimen Bowel regimen Incentive spriometer PT/OT IRF evaluation COPD Continue inhalers History of stroke Continue Plavix Low BMI Clinically significant, no acute management needs DVT prophylaxis: Lovenox (1) Nondisplaced intertrochanteric fracture of left femur, initial encounter for closed fracture Status: Acute (2) History of stroke Status: Chronic (3) BMI less than 19,adult Status: Acute LANA BOWEN MD Feb 19, 2021 22:56
== END 2021-02-19 11:45 | DRG 482 ==
LOC: EDUNIT# 13:35 → ER 13:36 → 4TH 15:20 → OBSVTOIN 15:20 → UNDODISIN 02-19 11:45
PROVIDERS: ADMIT Internal Medicine; ATTEND Internal Medicine
PROC: 0QS704Z Reposition Left Upper Femur with Internal Fixation Device, Open Approach (ICD-10-PCS; principal; 2021-02-15 12:08)
DX: S72.145A Nondisplaced intertrochanteric fracture of left femur, initial encounter for closed fracture (principal); W19.XXXA Unspecified fall, initial encounter; J44.9 Chronic obstructive pulmonary disease, unspecified; Z86.73 Personal history of transient ischemic attack (TIA), and cerebral infarction without residual deficits; M81.0 Age-related osteoporosis without current pathological fracture; F32.A Depression, unspecified; Z79.899 Other long term (current) drug therapy; Z20.822 Contact with and (suspected) exposure to COVID-19
CPT/HCPCS: 36415; 51702; 71045; 76000; 80048; 80053; 81000; 85014; 85018; 85025; 85610; 85730; 87081; 87636; 94640; 94664; 94760

== ENCOUNTER 2021-02-19 10:43 | Inpatient (IN) | payer MEDICARE, OTHER ==
[~2021-02-19] VITALS: Ht 157.5 cm; Wt 49.0 kg
[~2021-02-19 10:43] MED LIST changes: +CALC-687 PO; +CHOL10007 PO; +CYAN500T8 PO; +ESCI-2 PO; +FLUT1AER IH; +L.AC1CAP6 PO; +MULT-1136 PO; +NFBIOT1000 PO; +OMEG-160 PO; +RT-ALBUINH IH; +VIT1TABL26 PO
[2021-02-19] MEDS ORDERED: BISACODYL 10 MG SUPP (DULCOLAX) PR PRN (11:30)
[2021-02-19] MEDS ORDERED: LOPERAMIDE 2 MG (IMODIUM) TABLET PO PRN (11:30)
[2021-02-19] MEDS ORDERED: LACTULOSE SYRUP 10GM/15ML (ENULOSE) 30ML UDC PO PRN (11:30)
[2021-02-19] MEDS ORDERED: ONDANSETRON 4 MG (ZOFRAN) ORAL DISSOLVE TAB PO PRN (11:30)
[2021-02-19] MEDS ORDERED: FLEET ENEMA ADULT 1 EA BTL PR PRN (11:30)
[2021-02-19] MEDS ORDERED: diphenhydrAMINE 25 MG TAB (BENADRYL) PO PRN (11:30)
[2021-02-19] MEDS ORDERED: MELATONIN 3 MG TABLET PO PRN ×2 (11:30→14:30)
[2021-02-19] MEDS ORDERED: CALCIUM CARBONATE 500 MG (TUMS) TAB.CHEW PO PRN (11:30)
[2021-02-19] MEDS ORDERED: DOCUSATE SODIUM 100 MG (COLACE) CAP PO PRN (11:30)
[2021-02-19] MEDS ORDERED: ACETAMINOPHEN 325 MG TABLET PO PRN ×2 (11:30→14:30)
[2021-02-19] MEDS ORDERED: ALPRAZolam 0.25 MG (XANAX) TAB PO PRN (11:30)
--- NOTE | 2021-02-19 12:12 | Occupational Therapy Eval ---
OT Evaluation-General/PLF Medical Diagnosis Admission Date Medical Diagnosis: L hip fracture s/p IM nail Onset Date: Feb 15, 2021 Therapy Diagnosis Therapy Diagnosis: decreased ADL Status, weakness Height/Weight Height (Feet): 5 Height (Inches): 2 Weight (Pounds): 109 Weight (Ounces): 0.0 Referral Physician: Dasha Dorantes Reason: Evaluation/Treatment Medical History Pertinent Medical History: COPD, CVA Current History ED due to fall in yard. L hip surgery, s/p IM Nail. Reviewed History: Yes Social History Home: Apartment Current Living Status: Children (grown son) ADL-Prior Level of Function SCALE: Activities may be completed with or without assistive devices. 9-Pwwxfhhode-fysntxj completes the activity by him/herself with no assistance from a helper. 5-Set-up or Clean-up Assistance-helper sets up or cleans up; patient completes activity. [place] assists only prior to or following the activity. 4-Supervision or Touching Assistance-helper provides verbal cues and/or touching/steadying and/or contact guard assistance as patient completes activity. Assistance may be provided throughout the activity or intermittently. 3-Partial/Moderate Assistance-helper does LESS THAN HALF the effort. [place] lifts, holds or supports trunk or limbs, but provides less than half the effort. 2-Substantial/Maximal Assistance-helper does MORE THAN HALF the effort. [place] lifts or holds trunk or limbs and provides more than half the effort. 9-Qkilwncnc-bcuwel does ALL the effort. Patient does none of the effort to complete the activity. Or, the assistance of 2 or more helpers is required for the patient to complete the activity. If activity was not attempted, code reason: 7-Patient Refused. 9-Not Applicable-not attempted and the patient did not perform the activity before the current illness, exacerbation or injury. 10-Not Attempted due to Environmental Limitations-(lack of equipment, weather restraints, etc.). 88-Not Attempted due to Medical Conditions or Safety Concerns. ADL PLOF Comments Pt reports IND with ADLs and functional mobility at PLOF, no AD/AE. She has a tub/shower, no SC Self Care: Independent Functional Cognition: Independent DME/Equipment: Tub/Shower OT Current Status Subjective Pt agreeable to OT evaluation. Mental Status/Objective Patient Orientation: Person, Place, Time, Situation Current Glasses/Contacts: Yes Hand Dominance: Right Upper Extremity ROM WFL, BUE shoulder flexion to approx 150 degrees Upper Extremity Coordination WFL Upper Extremity Sensation WFL Upper Extremity Strength grossly 3+/5 ADL-Treatment Eating (QC): 6 Oral Hygiene (QC): 7 Shower/Bathe Self (QC): 7 Upper Body Dressing (QC): 7 Lower Body Dressing (QC): 7 On/Off Footwear (QC): 7 Toileting Hygiene (QC): 4 (SBA) Other Treatments Pt agreeable to OT evaluation and tx. Pt provided information about PLOF and home set up and participated in UE screen. Pt used FWW to bathroom, SBA. Pt completed toileting, SBA. Post tx, pt seated in recliner, call light in reach and all needs met. Education OT Patient Education: Correct positioning, Modified ADL techniques, Progress toward Goal/Update tx plan, Purpose of tx/functional activities, Rehab process Teaching Recipient: Patient Teaching Methods: Discussion Response to Teaching: Verbalize Understanding OT Short Term Goals Short Term Goals Time Frame: Feb 26, 2021 Toileting hygiene: 5 Lower body dressin Putting on/taking off footwear: 5 OT Longterm Goals Hotbed Transfer Operator Goals Time Frame: Mar 09, 2021 Eating (QC): 6 Oral Hygiene (QC): 6 Toileting Hygiene (QC): 6 Shower/Bathe Self (QC): 6 Upper Body Dressing (QC): 6 Lower Body Dressing (QC): 6 On/Off Footwear (QC): 6 Additional Goals: 1-Demonstrate ADL Tasks, 2-Verbalize Understanding, 3- ImproveStrength/Lara 1=Demonstrate adherence to instructed precautions during ADL tasks. 2=Patient will verbalize/demonstrate understanding of assistive devices/modif ications for ADL. 3=Patient will improve strength/tolerance for activity to enable patient to perform ADL's. OT Education/Plan Problem List/Assessment Assessment: Decreased Activ Tolerance, Decreased UE Strength, Impaired Funct Balance, Impaired I ADL's, Impaired Self-Care Skills Discharge Recommendations Plan/Recommendations: Continue POC Equpiment Recommendations-D/C: Extended Bath Bench Treatment Plan/Plan of Care Patient would benefit from OT for education, treatment and training to promote independence in ADL's, mobility, safety and/or upper extremity function for ADL's. Plan of Care: ADL Retraining, Functional Mobility, Group Exercise/Act as Ind, UE Funct Exercise/Act Treatment Duration: Mar 09, 2021 Frequency: At least 5 of 7 days/Wk (IRF) Estimated Hrs Per Day: 1.5 hours per day Agreement: Yes Rehab Potential: Good Time/GCodes Start Time: 11:50 Stop Time: 12:00 Total Time Billed (hr/min): 10 Billed Treatment Time 1, GILLIAN NAVARRO OT Feb 19, 2021 12:12
--- NOTE | 2021-02-19 12:53 | Physical Therapy Evaluation ---
PT Evaluation-General Medical Diagnosis Admission Date Medical Diagnosis: L hip fracture s/p IM nail Onset Date: Feb 15, 2021 Therapy Diagnosis Therapy Diagnosis: impaired mobility, strength, endurance Height/Weight Height (Feet): 5 Height (Inches): 2 Weight (Pounds): 109 Weight (Ounces): 0.0 Precautions Precautions/Isolations: Fall Prevention, Standard Precautions, Pressure Ulcer Weight Bear Status Left Lower Extremity: Left Weight Bearing/Tolerated Referral Physician: Taylor Lou DO Reason for Referral: Evaluation/Treatment Medical History Pertinent Medical History: COPD, CVA Reviewed History: Yes Social History Home: Apartment Current Living Status: Children (grown son) Prior Prior Level of Function SCALE: Activities may be completed with or without assistive devices. 9-Xkqpgstrci-hvsaplz completes the activity by him/herself with no assistance from a helper. 5-Set-up or Clean-up Assistance-helper sets up or cleans up; patient completes activity. [place] assists only prior to or following the activity. 4-Supervision or Touching Assistance-helper provides verbal cues and/or touching/steadying and/or contact guard assistance as patient completes activity. Assistance may be provided throughout the activity or intermittently. 3-Partial/Moderate Assistance-helper does LESS THAN HALF the effort. [place] lifts, holds or supports trunk or limbs, but provides less than half the effort. 2-Substantial/Maximal Assistance-helper does MORE THAN HALF the effort. [place] lifts or holds trunk or limbs and provides more than half the effort. 4-Zeejnoraj-vxwncf does ALL the effort. Patient does none of the effort to complete the activity. Or, the assistance of 2 or more helpers is required for the patient to complete the activity. If activity was not attempted, code reason: 7-Patient Refused. 9-Not Applicable-not attempted and the patient did not perform the activity before the current illness, exacerbation or injury. 10-Not Attempted due to Environmental Limitations-(lack of equipment, weather restraints, etc.). 88-Not Attempted due to Medical Conditions or Safety Concerns. Bed Mobility: 6 Transfers (B,C,W/C): 6 Gait: 6 Stairs: 6 Indoor Mobility (Ambulation): Independent Stairs: Independent PT Evaluation-Current Subjective Patient in recliner pre tx, agrees to PT, has no pain at rest but says has minor pain with activity. Pt/Family Goals to be independent at home Objective Patient Orientation: Person, Place, Situation Sensory Vision: Wears Glasses Hearing: Functional Hand Dominance: Right Sensation Right Lower Extremit: Intact Sensation Left Lower Extremity: Intact Transfers Roll Left & Right (QC): 10 Sit to Lying (QC): 10 Lying to Sitting/Side of Bed(Q: 10 Sit to Stand (QC): 4 Chair/Jar-el-Wyxmn Xfer(QC): 4 Toilet Transfer (QC): 4 Car Transfer (QC): 3 Patient performs sit <-> stand with SBA, transfers SBA, car transfer min assist. Patient needs occasional cues for positioning or hand placement. Gait Does the Patient Walk?: Yes Mode of Locomotion: Walk Anticipated Mode of Locomotion: Walk Walk 10 feet (QC): 4 Walk 50 ft with 2 Turns(QC): 4 Walk 150 ft (QC): 4 Walking 10ft/uneven surface-QC: 4 Distance: 200' Gait Assistive Device: FWW Comments/Gait Description Patient can ambulate 200' with a rolling walker with SBA (including 50' with at least 2 turns of 90 degrees but needs CGA for 10' over an uneven surface). Patient ambulates slow but steady. Wheelchair Training Wheel 50 ft with 2 turns (QC): 9 Wheel 150 ft (QC): 9 Stairs #of Steps: 1 1 Step (curb) (QC): 4 4 Steps (QC): 88 12 Steps (QC): 88 Walking Assistive Device: Walker Patient can go up and down 1 step using a rolling walker with cues for foot placement Balance Sitting Static: Normal Sitting Dynamic: Normal Standing Static: Good Standing Dynamic: Good Picking up an Object (QC): 10 Assessment/Needs Patient in recliner post tx with nurse call, phone, tray, all needs met. Patient has impaired mobility, strength, endurance. Mostly SBA with mobility. Rehab Potential: Fair PT Short Term Goals Short Term Goals Time Frame: Feb 26, 2021 Roll Left & Right: 6 Sit to lyin Lying to sitting on side of be: 4 Sit to stand: 5 Chair/tfr-mz-wxerf transfer: 5 Walk 10 feet: 5 Walk 50 feet with two turns: 5 Walk 150 feet: 5 PT Editor In Chief Goals Editor In Chief Goals PT Editor In Chief Goals Time Frame: Mar 12, 2021 Roll Left & Right (QC): 6 Sit to Lying (QC): 6 Lying-Sitting on Side/Bed(QC): 6 Sit to Stand (QC): 6 Chair/Rwi-yd-Gzqus Xfer(QC): 6 Toilet Transfer (QC): 6 Car Transfer (QC): 4 Does the Patient Walk: Yes Walk 10 feet (QC): 6 Walk 50ft with 2 Turns (QC): 6 Walk 150 ft (QC): 6 Walking 10ft on Uneven Surface: 6 1 Step (curb) (QC): 4 4 Steps (QC): 4 12 Steps (QC): 4 Picking up an Object (QC): 6 Wheel 50 feet with 2 turns (QC: 9 Wheel 150 feet: 9 PT Plan Problem List Problem List: Activity Tolerance, Functional Strength, Safety, Balance, Gait, Transfer, Bed Mobility, ROM Treatment/Plan Treatment Plan: Continue Plan of Care Treatment Plan: Bed Mobility, Education, Functional Activity Lara, Functional Strength, Group Therapy, Gait, Safety, Therapeutic Exercise, Transfers Treatment Duration: Mar 12, 2021 Frequency: At least 5 of 7 days/Wk (IRF) Estimated Hrs Per Day: 1.5 hours per day Patient and/or Family Agrees t: Yes Safety Risks/Education Patient Education: Gait Training, Transfer Techniques, Steps, Reviewed Precautions, Correct Positioning, Safety Issues Teaching Recipient: Patient Teaching Methods: Demonstration, Discussion Response to Teaching: Reinforcement Needed Discharge Recommendations Plan Patient will perform bed mobility and transfer training, balance and endurance training, functional strengthening, stair training, gait training, and education, to improve functional mobility and independence at home. Therapy Discharge Recommendati: Home & Family, Post Acute PT Time/GCodes Time In: 1140 Time Out: 1150 Total Billed Treatment Time: 10 Total Billed Treatment 1 visit RAMY TSE PT Feb 19, 2021 12:53
[2021-02-19 13:00] VITALS: BP 113/62
--- NOTE | 2021-02-19 13:44 | Occupational Ther Daily Note ---
OT Current Status-Daily Note Subjective Pt alert, visiting with daughter when OT entered. Pt agreed to therapy. No c/o pain reported at this time. Mental Status/Objective Patient Orientation: Person, Place, Time, Situation ADL-Treatment Pt agreed to complete shower. Pt sit-stand from recliner to FWW with CGA. Pt ambulated to bathroom and transferred to shower bench. Pt doffed gown at shower bench. Pt required min A to thread LUE out of brief due to pain. Pt able to doff R sock, required max A to doff L sock. Pt would benefit from LE AE at this time due to increase. Pt was able to cleanse/dry UB, chest, abdomen, dariel area with supervision. Pt required assist to cleanse/dry buttocks and LB. After set up, pt donned gown. Pt able to thread R LE through brief using figure 4 technique, required min A to thread LE. Pt sit-stand from chair to FWW to hike LB dressing with CGA. Pt ambulated to sink and completed grooming task of brushing hair while standing at sink with CGA. Pt ambulated to recliner using FWW with CGA. Pt educated on LE AE of grinding room inspector and sock aid. After skilled instruction, pt able to don/doff socks using AE due to increase pain. After session, pt sitting in recliner. All needs met and call light in reach. Therapy Code Descriptions/Definitions Functional [place] Measure: 0=Not Assessed/NA 4=Minimal Assistance 1=Total Assistance 5=Supervision or Setup 2=Maximal Assistance 6=Modified [place] 3=Moderate Assistance 7=Complete IndependenceSCALE: Activities may be completed with or without assistive devices. 0-Tnfpbgkwir-ruuyjtz completes the activity by him/herself with no assistance from a helper. 5-Set-up or Clean-up Assistance-helper sets up or cleans up; patient completes activity. [place] assists only prior to or following the activity. 4-Supervision or Touching Assistance-helper provides verbal cues and/or touching/steadying and/or contact guard assistance as patient completes activity. Assistance may be provided throughout the activity or intermittently. 3-Partial/Moderate Assistance-helper does LESS THAN HALF the effort. [place] lifts, holds or supports trunk or limbs, but provides less than half the effort. 2-Substantial/Maximal Assistance-helper does MORE THAN HALF the effort. [place] lifts or holds trunk or limbs and provides more than half the effort. 4-Xkaxlcbed-gpsipj does ALL the effort. Patient does none of the effort to complete the activity. Or, the assistance of 2 or more helpers is required for the patient to complete the activity. If activity was not attempted, code reason: 7-Patient Refused. 9-Not Applicable-not attempted and the patient did not perform the activity before the current illness, exacerbation or injury. 10-Not Attempted due to Environmental Limitations-(lack of equipment, weather restraints, etc.). 88-Not Attempted due to Medical Conditions or Safety Concerns. Bathing Location: L Arm, R Arm, L Upper Leg, R Upper Leg, Chest, Abdomen, Perineal Area Shower/Bathe Self (QC): 3 Upper Body Dressing (QC): 5 Lower Body Dressing (QC): 3 On/Off Footwear: 3 Education OT Patient Education: Correct positioning, Energy conservation, Modified ADL techniques, Use of adapted equipment Teaching Recipient: Patient Teaching Methods: Demonstration, Discussion Response to Teaching: Verbalize Understanding, Return Demonstration OT Short Term Goals Short Term Goals Time Frame: Feb 26, 2021 Toileting hygiene: 5 Lower body dressin Putting on/taking off footwear: 5 OT Turning Sander Operator Goals Senior Care Goals Time Frame: Mar 09, 2021 Eating (QC): 6 Oral Hygiene (QC): 6 Toileting Hygiene (QC): 6 Shower/Bathe Self (QC): 6 Upper Body Dressing (QC): 6 Lower Body Dressing (QC): 6 On/Off Footwear (QC): 6 Additional Goals: 1-Demonstrate ADL Tasks, 2-Verbalize Understanding, 3- ImproveStrength/Lara 1=Demonstrate adherence to instructed precautions during ADL tasks. 2=Patient will verbalize/demonstrate understanding of assistive devices/modifications for ADL. 3=Patient will improve strength/tolerance for activity to enable patient to perform ADL's. OT Education/Plan Problem List/Assessment Assessment: Decreased Activ Tolerance, Decreased UE Strength, Impaired I ADL's, Impaired Self-Care Skills Discharge Recommendations Plan/Recommendations: Continue POC Treatment Plan/Plan of Care Patient would benefit from OT for education, treatment and training to promote independence in ADL's, mobility, safety and/or upper extremity function for ADL's. Plan of Care: ADL Retraining, Functional Mobility, Group Exercise/Act as Ind, UE Funct Exercise/Act Treatment Duration: Mar 09, 2021 Frequency: At least 5 of 7 days/Wk (IRF) Estimated Hrs Per Day: 1.5 hours per day Agreement: Yes Rehab Potential: Fair Time/GCodes Start Time: 12:30 Stop Time: 13:35 Total Time Billed (hr/min): 65 Billed Treatment Time 1 visit- ADL 4 (65 mins) NATO SHEPARD Feb 19, 2021 13:44
--- NOTE | 2021-02-19 14:19 | ST Cognitive Linguistic Eval ---
Speech Evaluation-General Medical Diagnosis L hip fracture s/p IM nail Onset Date: Feb 15, 2021 Therapy Diagnosis Therapy Diagnosis: Mild Cognitive Linguistic Impairment Precautions Precautions: Fall, Hip Precautions/Isolations: Standard Precautions Referral Referring Physician: Dr. Lou Reason for Referral: Evaluation/Treatment Medical History Pertinent Medical History: COPD, CVA Current History The patient is an 85 year-old female with a past medical history of cryptogenic stroke, depression, and prior tobacco use, who presented to [facility] following a fall. The patient denied any loss of consciousness. The patient was found to have a nondisplaced, closed intertrochanteric fracture of the left femur which was treated with surgery. CXR: 02/15/21: No acute cardiopulmonary findings. Reviewed History: Yes Social History Current Living Status: Children (grown son) Speech PLF-Current Status Prior Level of Function The patient currently lives at home with her son, Carlo, and a dog. Prior to admission, the patient was independent with ADL's. Subjective Following the left hip procedure, the patient was admitted to the rehabilitation unit. Upon entrance to the the patient's room, the patient was seated upright in her recliner, alert and awake. The patient greeted the clinician appropriately and was agreeable to participation in the cognitive linguistic assessment. To note, the patient's daughter is present at bedside. The patient denied concerns with her speech, language, or swallowing function. The patient is consuming lunch throughout the patient's visit and no s/s of suspected aspiration were demonstrated (regular solids with thin liquids via cup edge). The patient does report "a little difficulty" with memory but stated, "that's all due to age." Language Eval: Auditory Comprehends Simple Yes/No Ques: Functional Indent/Objects Multiple Pollock: Functional Ident/Pics in Multiple Pollock: Functional Follows 1-Step Commands: Functional Follows Complex Directions: Functional Follows General Conversations: Functional Language Eval: Verbal Language Completes Spontaneous Greeting: Functional Produces Auto, Serial Info: Functional Imitates Simple Words/Phrases: Functional Word Finding: Functional Requests Basic Needs: Functional States Basic Personal Info: Functional Expresses Complex Ideas: Functional Language Evaluation: Reading Comprehends Single Nouns: Functional Language Evaluation: Writing Copies/Traces: Functional Writes to Simple Dictation: Functional Cognitive Patient Orientation The patient is independently oriented to location, city, month, day of week, date and year. Objective Cognitive Domain Attention: WNL Memory: Mild Problem Solving: Functional Executive Functions: WNL Visuospatial Skills: WNL Clock Drawing Severity Rating: Mild Objective Formal/Standardized Tests [facility] Mental Status ([facility]) Results The patient displayed a result of +26/30 correlating to a borderline "mild neurocognitive" impairment per the SLUMS protocol. Oral Motor/Speech Production The patient does not display dysarthria or apraxia of speech. The patient is 100% intelligible in known and unknown contexts. Impression The patient is an 85 year-old female, who presented with SLUMS scores correlating to a mild (borderline) neurocognitive impairment. The patient displayed difficulty with recalling one unit of information from a paragraph previously read aloud by the clinician and placing the hands on the clock accurately during the clock-drawing exercise. The results were discussed thoroughly with the patient. Per patient, "Yes, I know. My memory is because of my age." The patient does not state concerns r egarding her memory function and is self-aware of intermittent difficulties. The patient displays appropriate problem solving ability throughout the evaluation and complete spontaneous conversation accurately. The patient stated she appreciated the service provided by the clinician however would like to focus on her strength to "get home faster." The clinician stated her services would remain available throughout her stay if she should change her mind regarding participation with speech pathology treatment. The patient verbalized comprehension and politely thanked the clinician for her time. Speech Patient Assess Expression of Ideas/Wants: Expression (4) Understanding Verbal Content: Understands (4) Brief Interview-Mental Status: Yes Repetition of Three Words: Three (3) Temporal Orientation: Year: Correct (3) Temporal Orientation: Month: Accurate within 5 days(2) Temporal Orientation: Day: Correct (1) Recall : Wear to say "Sock": Yes, no cue required (2) Recall : Color: Yes, no cue required (2) Recall : Bed: Yes, no cue required (2) Memory/Recall Ability: Current season, That he or she is in a hsp/hsp unit Speech-Plan Treatment Plan Speech Therapy Treatment Plan: Discontinue ST Treatment Duration: Feb 19, 2021 Frequency: 1 time per week Estimated Hrs Per Day: .25 hour per day Rehab Potential: Fair Pt/Family Agrees to Plan: Yes Safety Risks/Education Teaching Recipient: Patient Teaching Methods: Discussion Response to Teaching: Verbalize Understanding Education Topics Provided: Results of SLUMS, Plan of Care, Speech Pathology Services Available. Time Speech Therapy Time In: 12:00 Speech Therapy Time Out: 12:32 Total Billed Time: 32 Billed Treatment Time 1, JOHANN HORTON ELIZABETH ST Feb 19, 2021 14:19
[2021-02-19] MEDS ORDERED: CATHETER FLUSH 10 ML SYR IV PRN (14:30)
[2021-02-19] MEDS ORDERED: ANTACID SUSP 30 ML UDC (MYLANTA) PO PRN (14:30)
[2021-02-19] MEDS ORDERED: ONDANSETRON 4 MG/2 ML (SDV) Z0FRAN IVP PRN (14:30)
[2021-02-19] MEDS ORDERED: fentaNYL INJ 100 MCG/2 ML AMP IV PRN (14:30)
[2021-02-19] MEDS ORDERED: CYCLOBENZAPRINE 10 MG (FLEXERIL) TAB PO PRN (14:30)
[2021-02-19] MEDS ORDERED: RT-ALBUTEROL/IPRATROPIUM 3 ML (DUONEB) VIAL INH PRN (14:30)
[2021-02-19] MEDS ORDERED: polyethylene glycoL POWDER 17 GM (MIRALAX) PACK PO PRN (14:30)
--- NOTE | 2021-02-19 15:03 | Physical Therapy Daily Note ---
PT Daily Note-Current Subjective Pt. agreeable to Rx with some encouragement and explanation. Pts daughters present and supportive. Pt. a bit confused at times about the situation. No real c/o pain Pain Location: No Pain Reported Mental Status Patient Orientation: Person Transfers SCALE: Activities may be completed with or without assistive devices. 2-Hxmpgwbcwb-xghdyul completes the activity by him/herself with no assistance from a helper. 5-Set-up or Clean-up Assistance-helper sets up or cleans up; patient completes activity. Connelly assists only prior to or following the activity. 4-Supervision or Touching Assistance-helper provides verbal cues and/or touching/steadying and/or contact guard assistance as patient completes activ ity. Assistance may be provided throughout the activity or intermittently. 3-Partial/Moderate Assistance-helper does LESS THAN HALF the effort. Connelly lifts, holds or supports trunk or limbs, but provides less than half the effort. 2-Substantial/Maximal Assistance-helper does MORE THAN HALF the effort. Connelly lifts or holds trunk or limbs and provides more than half the effort. 6-Npxtesggy-noydqu does ALL the effort. Patient does none of the effort to complete the activity. Or, the assistance of 2 or more helpers is required for the patient to complete the activity. If activity was not attempted, code reason: 7-Patient Refused. 9-Not Applicable-not attempted and the patient did not perform the activity before the current illness, exacerbation or injury. 10-Not Attempted due to Environmental Limitations-(lack of equipment, weather restraints, etc.). 88-Not Attempted due to Medical Conditions or Safety Concerns. Roll Left & Right (QC): 3 Sit to Lying (QC): 3 Lying to Sitting/Side of Bed(Q: 3 Sit to Stand (QC): 4 Chair/Yxt-uk-Noput Xfer(QC): 4 Toilet Transfer (QC): 4 pt. 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 requested toileting and and washing, BSC was placed over the toilet for appropriate height and precautions Assessment Current Status: Good Progress pt. appears somewhat confused at times and needs directed/instructed for safety and goals of therapy PT Short Term Goals Short Term Goals Time Frame: Feb 26, 2021 Roll Left & Right: 6 Sit to lyin Lying to sitting on side of be: 4 Sit to stand: 5 Chair/mco-sq-nuunm transfer: 5 Walk 10 feet: 5 Walk 50 feet with two turns: 5 Walk 150 feet: 5 PT Custodial Goals Geothermal Technician Goals PT Custodial Goals Time Frame: Mar 12, 2021 Roll Left & Right (QC): 6 Sit to Lying (QC): 6 Lying-Sitting on Side/Bed(QC): 6 Sit to Stand (QC): 6 Chair/Gne-re-Uerwn Xfer(QC): 6 Toilet Transfer (QC): 6 Car Transfer (QC): 4 Does the Patient Walk: Yes Walk 10 feet (QC): 6 Walk 50ft with 2 Turns (QC): 6 Walk 150 ft (QC): 6 Walking 10ft on Uneven Surface: 6 1 Step (curb) (QC): 4 4 Steps (QC): 4 12 Steps (QC): 4 Picking up an Object (QC): 6 Wheel 50 feet with 2 turns (QC: 9 Wheel 150 feet: 9 PT Plan Treatment/Plan Treatment Plan: Continue Plan of Care Treatment Plan: Bed Mobility, Education, Functional Activity Lara, Functional Strength, Group Therapy, Gait, Safety, Therapeutic Exercise, Transfers Treatment Duration: Mar 12, 2021 Frequency: At least 5 of 7 days/Wk (IRF) Estimated Hrs Per Day: 1.5 hours per day Patient and/or Family Agrees t: Yes Safety Risks/Education Patient Education: Gait Training, Transfer Techniques, Reviewed Precautions, Correct Positioning, Safety Issues Teaching Recipient: Patient, Family Teaching Methods: Demonstration, Discussion Response to Teaching: Verbalize Understanding, Return Demonstration, Reinforcement Needed Time/GCodes Time In: 1400 Time Out: 1505 Total Billed Treatment Time: 65 Total Billed Treatment 1,Gt20m,EX20m,FA25 LEANA BOURNE COURTESY BUS DRIVER Feb 19, 2021 15:03
[2021-02-19] MEDS: ENOXAPARIN 30 MG/0.3 ML (LOVENOX) SYR SC SCH (15:24)
[2021-02-19 20:10] VITALS: BP 131/63
--- NOTE | 2021-02-19 20:46 | PM&R Post Admission Assessment ---
PM&R HP Date of Visit: Feb 19, 2021 Time of Visit: 13:00 History of Present Illness CC: Debility from left hip fracture HPI: This is an 85yoWF who lives at home with her son who presents to inpatient rehab for a short stay following a left hip fracture s/p uncomplicated repair. Overall she has been doing well on med surg but needs rehab in order to fine tune her skills so she can return home and live independently. Patient does have postop constipation. She does appear to be frail so will need to increase independence in ADLs to safely discharged to independent living. Past Aekwyij-Sjagyj-Bmmdrs Hx Past Med/Social Hx: Reviewed Nursing Past Med/Soc Hx, Reviewed and Corrections made Patient Social History Marrital Status: Employed/Student: retired Alcohol Use: Denies Use Alcohol Beverage of Choice: Wine Smoking Status: Former Smoker Former Smoker, Quit: Apr 24, 1989 2nd Hand Smoke Exposure: No Recent Hopitalizations: No Immunizations Up To Date Date of Pneumonia Vaccine: Dec 05, 2015 Date of Influenza Vaccine: Jan 24, 2021 Seasonal Allergies Seasonal Allergies: No Past Medical History Surgeries: Eye Surgery, Hysterectomy Respiratory: COPD Currently Using CPAP: No Currently Using BIPAP: No Neurological: Stroke Reproductive: No Sexually Transmitted Disease: No HIV/AIDS: No Female Reproductive Disorders: Denies Musculoskeletal: Osteoporosis HEENT: Cataract Psychosocial: Depression Adverse Reaction to Blood Lopez: No Family History Heart Disease, Hypertension Prior Level of Function Bed Mobility: 6 Transfers: 6 Gait: 6 Stairs: 6 Indoor Mobility (Ambulation): Independent Stairs: Independent Self Care: Independent Functional Cognition: Independent Current Level of Fuctioning Roll Left to Right: 3 Sit to Lyin Lying to Sitting/Side of Bed: 3 Sit to Stand: 4 Chair/Gst-wk-Guyzl Xfer: 4 Car Transfer: 3 Does the Patient Walk: Yes Mode of Locomotion: Walk Anticipated Mode of Locomotion: Walk Walk 10 feet: 4 Walk 50 ft with 2 Turns: 4 Walk 150 ft: 4 Walking 10ft on uneven surface: 4 Gait Assistive Device: FWW Wheel 50 ft with 2 turns: 9 Wheel 150 ft: 9 #of Steps: 1 1 Step (curb): 4 4 Steps: 88 Walking Assistive Device: Walker 12 Steps: 88 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) Eatin Oral Hygiene: 7 Shower/Bathe Self: 3 Upper Body Dressin Lower Body Dressin On/Off Footwear: 3 Toileting Hygiene: 4 (SBA) PM&R Allergy/Meds/Data Review Allergies Coded Allergies: celecoxib (Unverified Allergy, Mild, RASH, 03/16/10) Penicillins (Unverified Allergy, Unknown, 01/05/14) Home Medications Scheduled Biotin (Biotin), 1,000 MCG PO DAILY, (Reported) Calcium Carbonate/Mag Oxide/Zn (Missdvq-Oldgblvdf-Tpko Tablet), 1 EACH PO DAILY, (Reported) Cholecalciferol (Vitamin D3) (Vitamin D3), 25 MCG PO DAILY, (Reported) Clopidogrel Bisulfate (Clopidogrel), 75 MG PO HS, (Reported) Cyanocobalamin (Vitamin B-12) (Vitamin B-12), 500 MCG PO DAILY, (Reported) Escitalopram Oxalate (Escitalopram Oxalate), 10 MG PO HS, (Reported) Fluticasone/Vilanterol (Breo Ellipta 100-25 Mcg INH), 1 EACH IH DAILY, (Reported) L.acidoph & Paracasei,B.lactis (Probiotic), 1 EACH PO DAILY, (Reported) Multivitamin (Multivitamin), 1 EACH PO DAILY, (Reported) Butler-3/Dha/Epa/Fish Oil (Fish Oil 1,000 mg Softgel), 1 EACH PO DAILY, (Reported) Vit A,C & E/Lutein/Minerals (Ocuvite with Lutein Tablet), 1 EACH PO DAILY, (Reported) Scheduled PRN Albuterol Sulfate (Proair Hfa), 2 PUFF IH Q4H PRN for SHORTNESS OF BREATH, (Reported) Discontinued Medications Atorvastatin Calcium (Lipitor), 10 MG PO DAILY Discontinued Reason: Referral/FU Appt-Addtl Biotin (Biotin), 5,000 MCG PO DAILY, (Reported) Discontinued Reason: Referral/FU Appt-Addtl Calcium Carbonate/Vitamin D3 (Calcium 600 + D Caplet), 1 TAB PO BID, (Reported) Discontinued Reason: Referral/FU Appt-Addtl Cholecalciferol (Vitamin D3) (Vitamin D), 2,000 UNIT PO DAILY, (Reported) Discontinued Reason: Referral/FU Appt-Addtl Clopidogrel Bisulfate (Clopidogrel), 75 MG PO DAILY Discontinued Reason: Referral/FU Appt-Addtl Cyanocobalamin (Vitamin B12), 50 MCG PO DAILY, (Reported) Discontinued Reason: Referral/FU Appt-Addtl Escitalopram Oxalate (Lexapro), 5 MG PO DAILY, (Reported) Discontinued Reason: Referral/FU Appt-Addtl Folic Acid/Multivit-Min/Lutein (Multi-Vitamin Gummies), 1 TAB PO TID, (Reported) Discontinued Reason: Referral/FU Appt-Addtl Butler 3 Polyunsat Fatty Acids (Fish Oil), 1,000 MG PO TID, (Reported) Discontinued Reason: Referral/FU Appt-Addtl Teriparatide (Forteo), 20 MCG SQ DAILY, (Reported) Discontinued Reason: Referral/FU Appt-Addtl Tramadol HCl (Ultram), 50 MG PO Q6H PRN for PAIN Discontinued Reason: Referral/FU Appt-Addtl Vit C/Vit E/Lutein/Min/Butler-3 (Ocuvite Softgel), 1 CAP PO DAILY, (Reported) Discontinued Reason: Referral/FU Appt-Addtl Current Medications Current Medications Reviewed Review of Systems Constitutional: see HPI, malaise, weakness EENTM: no symptoms reported Respiratory: no symptoms reported Cardiovascular: no symptoms reported Gastrointestinal: constipation Genitourinary: no symptoms reported Musculoskeletal: no symptoms reported Skin: no symptoms reported Psychiatric/Neurological: No Symptoms Reported All Other Systems Reviewed Negative Unless Noted: Yes Physical Exam Physical Exam Vital Signs Vital Signs - First Documented 02/19/21 13:00 Temp 36.1 Pulse 84 Resp 18 B/P (MAP) 113/62 (79) Pulse Ox 97 O2 Delivery Nasal Cannula O2 Flow Rate 2.00 Capillary Refill : Height, Weight, BMI Height: 5'2" Weight: 109lbs. 0.0oz. 49.002049lb; 19.91 BMI Method:Stated General Appearance: No Apparent Distress, WD/WN, Chronically ill, Thin Eyes: Bilateral Eye Normal Inspection, Bilateral Eye PERRL HEENT: PERRL/EOMI, Normal ENT Inspection, Pharynx Normal Neck: Full Range of Motion, Normal Inspection, Non Tender, Supple, Carotid Bruit Respiratory: Chest Non Tender, Lungs Clear, Normal Breath Sounds, No Accessory Muscle Use, No Respiratory Distress Cardiovascular: Regular Rate, Rhythm, No Edema, No Gallop, No JVD, No Murmur, Normal Peripheral Pulses Gastrointestinal: Normal Bowel Sounds, No Organomegaly, No Pulsatile Mass, Non Tender, Soft Back: Normal Inspection, No CVA Tenderness, No Vertebral Tenderness Extremity: Normal Capillary Refill, Normal Inspection, Normal Range of Motion (Except left leg), Non Tender, No Calf Tenderness, No Pedal Edema Neurologic/Psychiatric: Alert, Oriented x3, No Motor/Sensory Deficits, Normal Mood/Affect, Abnormal Gait, Motor Weakness Skin: Normal Color, Warm/Dry Lymphatic: No Adenopathy PM&R Medical Assessment & Plan REHAB/MEDICAL ASSESSMENT AND PLAN: REHAB IMPAIRMENT GROUP: Left hip fracture ETIOLOGIC DIAGNOSIS: Left hip fracture The comorbidities that impact the patients function and/or functional outcome by: Advanced age, history of CVA, COPD, frail status REHAB PLAN: The patient is being admitted to our comprehensive inpatient rehabilitation facility and can tolerate the intensity of service consisting of at least: 180 minutes of therapy a day, 5 out of 7 days a week Rehab treatment will consist of: PT and OT will focus on regaining function with use of assistive device along with increasing independence in ADLs in order to return back to independent living The patient/family has a good understanding of our discharge process and will benefit from an interdisciplinary inpatient rehabilitation program. The patient has potential to make improvement and is in need of at least two of the following multidisciplinary therapies including but not limited to physical, occupational, speech, and prosthetics and orthotics. Additionally the patient will need services from respiratory, nutritional services, wound care, psychology, etc. (Customize this to each patient). Given the patients complex condition and risk of further medical complications, rehabilitation services cannot be safely or effectively provided at a lower level of care such as a [facility] nursing facility. BARRIERS TO DISCHARGE: Frail status ESTIMATED LOS: 7 days RELEVANT CHANGES SINCE PREADMISSION SCREENING: I have compared the patients medical and functional status at the time of the preadmission screening and there are: No changes PROGNOSIS: Guarded REHABILITATION GOALS: 1. PT and OT will focus on regaining function with use of assistive device along with increasing independence in ADLs in order to return back to independent living All the above goals were reviewed with the patient and he/she is in agreement. By signing this document, I acknowledge that I have personally performed a full physical examination on this patient within 24 hours of admission to this inpatient rehabilitation facility and have determined the patient to be able to tolerate the above course of treatment at an intensive level for a reasonable period of time. I will be completing a detailed individualized Plan of Care for this patient by day #4 of the patients stay based upon the Preadmission Screen, the Post-Admission Evaluation, and the therapy evaluations. Admission Dx/Comorbidities: (1) Intertrochanteric fracture of left hip Status: Acute ICD Codes: S72.142A - Displaced intertrochanteric fracture of left femur, initial encounter for closed fracture (2) History of stroke Status: Chronic ICD Codes: Z86.73 - Personal history of transient ischemic attack (TIA), and cerebral infarction without residual deficits Assessment/Plan Assessment and Plan Assess & Plan/Chief Complaint Assessment: Status post left hip fracture Osteoporosis COPD Former smoker Postop constipation History of CVA Plan: Inpatient rehab protocol Home meds Supportive care MAGGIE ESCAMILLA DO Feb 19, 2021 20:46
[2021-02-19] MEDS: DOCUSATE SODIUM 100 MG (COLACE) CAP PO SCH ×2 (20:52→21:05)
[2021-02-19] MEDS: SENNA W/DOCUSATE (SENOKOT S) TABLET PO SCH (21:05)
[2021-02-19] MEDS: polyethylene glycoL POWDER 17 GM (MIRALAX) PACK PO SCH (21:05)
[2021-02-19] MEDS: SENNOSIDES 8.6 MG (SENOKOT) TAB PO SCH (21:05)
[2021-02-20] MEDS ORDERED: RT-ALBUTEROL SULF 2.5 MG/3 ML PRE-MIX VIAL IH PRN (06:00)
--- NOTE | 2021-02-20 06:00 | Individualized Plan of Care ---
Individualized Plan of Care Rehab Nursing IPOC Order Admission Date Feb 19, 2021 at 11:45 Current Orders Orders Admission Order(Inpt,Obs,Sdc) (02/19/21 11:24) Vital Signs: Per Unit Policy ( ,16,00 (02/19/21 11:24) [place] (02/19/21 11:24) Sequential Compression Device (02/19/21 11:24) Medical Records Analyst-Inpt Rehab Con (02/19/21 11:24) Rehab Nursing Orders-Ipoc (02/19/21 11:24) Physical Therapy Rehab Orders (02/19/21 11:24) Occupational Therapy Rehab Ord (02/19/21 11:24) Speech Therapy Rehab Orders (02/19/21 11:24) Cbc With Automated Diff (02/20/21 06:00) Comprehensive Metabolic Panel (02/20/21 06:00) Precautions (Aru) (02/19/21 11:24) Weekly Weight WEEK (02/19/21 11:24) Rehab-Intensity Of Therapy (02/19/21 11:24) Initiate Admission Nursing Pro .admission (02/19/21 11:24) Alprazolam Tablet (Xanax Tablet) (02/19/21 11:30) Calcium Carbonate Chew Tablet (Antacid C (02/19/21 11:30) Diphenhydramine Tablet (Benadryl Tablet) (02/19/21 11:30) Docusate Sodium Capsule (Colace Capsule) (02/19/21 21:00) Docusate Sodium Capsule (Colace Capsule) (02/19/21 11:30) Bisacodyl Suppository (Dulcolax Supposit (02/19/21 11:30) Lactulose Oral Solution (Enulose Oral So (02/19/21 11:30) Na Phos/Na Biphos Enema (Fleet Enema Shahid (02/19/21 11:30) Loperamide Tablet (Imodium Tablet) (02/19/21 11:30) Melatonin Tablet (Melatonin Tablet) (02/19/21 11:30) Polyethylene Glycol Powder Pkt (Miralax (02/19/21 21:00) Ondansetron Oral Dissolve Tab (Zofran (02/19/21 11:30) Senna S Tablet (Senokot S Tablet) (02/19/21 21:00) Acetaminophen Tablet/Caplet (Tylenol T (02/19/21 11:30) Initiate Admission Nursing Pro .admission (02/19/21 11:24) Admission Arrival Bed Request (02/19/21 11:50) General/Regular (02/19/21 Lunch) Code/Resuscitation (02/19/21 14:22) Dressing Order (Intervention) DAILY (02/19/21 14:22) Incentive Spirometry (Nursing) Q2H (02/19/21 14:22) Albuterol/Ipra Inhalation Soln (Duoneb I (02/19/21 14:30) Citalopram Tablet (Celexa Tablet) (02/19/21 21:00) Clopidogrel Tablet (Plavix Tablet) (02/20/21 09:00) Docusate Sodium Capsule (Colace Capsule) (02/19/21 21:00) Cyclobenzaprine Tablet (Flexeril Tablet) (02/19/21 14:30) Enoxaparin Injection (Lovenox Injection) (02/19/21 14:30) Melatonin Tablet (Melatonin Tablet) (02/19/21 14:30) Polyethylene Glycol Powder Pkt (Miralax (02/19/21 14:30) Antacid Suspension (Mylanta Suspension (02/19/21 14:30) Sennosides Tablet (Senokot Tablet) (02/19/21 21:00) Sodium Chloride Flush (Catheter Flush Sy (02/19/21 14:30) Acetaminophen Tablet/Caplet (Tylenol T (02/19/21 14:30) Ondansetron Injection (Zofran Injectio (02/19/21 14:30) Fentanyl Inj (Sublimaze Injection) (02/19/21 14:30) Oxycodone Immediate Rel Tablet (Oxyir Ta (02/19/21 14:30) Consult Orthopedic Surgery (02/19/21 14:22) Incentive Spirometry Initial (02/19/21 14:22) Mat Initiate Protocol (02/19/21 14:22) Sequential Compression Device (02/19/21 14:22) Weight Bearing As Tolerated (02/19/21 14:22) Svn Small Volume Nebulizer (02/19/21 14:22) Incentive Spirometry (Nursing) Q2H (02/19/21 14:22) Patient Visit (02/19/21 ) Pt Eval Low Complexity (02/19/21 ) Patient Visit (02/19/21 ) Speech Sound Lang Comp (02/19/21 ) Treat. Speech/Lang/Voice (02/19/21 ) Patient Visit (02/19/21 ) Gait Training, Ea 15 Min (02/19/21 ) Exercise Therap, Ea 15 Min (02/19/21 ) Functional Activities, Ea 15 (02/19/21 ) Albuterol Pre-Mix Nebs (Rt) (Proventil (02/20/21 06:00) Fluticasone/Vilanterol 100 Mcg (Breo Ell (02/20/21 09:00) Cholecalciferol Capsule/Tablet (Vitamin (02/20/21 09:00) Cyanocobalamin Tablet (Vitamin B-12 Tabl (02/20/21 09:00) (Nf) Escitalopram Oxalate (02/20/21 21:00) Lactobacillus Acidophilus Cap (Acidophil (02/20/21 09:00) Therapeutic Multivitamin Tab (Vitamins, (02/20/21 09:00) Potassium Chloride (Tablet) (Klor Con Ta (02/20/21 08:30) Potassium Chloride (Tablet) (Klor Con Ta (02/21/21 07:00) Pet Pass (02/20/21 08:48) Fluticasone/Salmeterol 113-14 (Airduo Re (02/21/21 09:00) Patient Visit (02/20/21 ) Gait Training, Ea 15 Min (02/20/21 ) Functional Activities, Ea 15 (02/20/21 ) Exercise Therap, Ea 15 Min (02/20/21 ) Rehab Nursing Orders: Ongoing Assess. of Cognitive Status, Ongoing Assess. of Function Status, Bladder Management, Bladder Scan, Bladder Training, Bowel Management, Bowel Training, Disease Management & Educaiton, DVT Prophylaxis, Fall Prevention, Fluid/Electrolyte/Nutrition Mgmt, Infection Prevention, Medication Management & Education, Management of Risks & Complications, Management of Skin Intergrity, Nutrition Management, Pain Management, Patient/Family Support, Safety Management Intensity of Therapy to be met Patient to be seen: Min.3h per day/5 of 7d PT IPOC Problem List: Activity Tolerance, Functional Strength, Safety, Balance, Gait, Transfer, Bed Mobility, ROM Treatment Plan: Continue Plan of Care Bed Mobility, Education, Functional Activity Lara, Functional Strength, Group Therapy, Gait, Safety, Therapeutic Exercise, Transfers Treatment Duration: Mar 12, 2021 Frequency: At least 5 of 7 days/Wk (IRF) Estimated Hrs Per Day: 1.5 hours per day OT IPOC Problems: Decreased Activ Tolerance, Decreased UE Strength, Impaired I ADL's, Impaired Self-Care Skills OT Treatment, Training and Edu: Yes Plan of Care: ADL Retraining, Functional Mobility, Group Exercise/Act as Ind, UE Funct Exercise/Act Treatment Duration: Mar 09, 2021 Frequency: At least 5 of 7 days/Wk (IRF) Estimated Hrs Per Day: 1.[address] IPOC Speech Therapy Treatment Plan: Discontinue ST Treatment Duration: Feb 19, 2021 Frequency: 1 time per week Estimated Hrs Per Day: .25 hour per day Medical Records Analyst/Case Mgmt Medical Records Analyst/Case Managemen: Discharge Planning Dietitian/Digester Capper Dietitian/Digester Capper to monitor nutritional status and make changes and/or recommendations as needed and work with speech pathology on dietary upgrades as the occur. Physician IPOC Medical Issues being managed closely and that require the 24 hour availability of a physician: Recent hip fracture with frail status and COPD will require close monitoring with oxygen levels and be on alert for any decompensation signs Medical Issues: Bowel/Bladder Function, DVT Prophylaxis, Falls Precautions, Fluid/Electrolyte/Nutrition Balance, Infection Protection, Pain Management Brief Synthesis of Preadmission Screen, Post-Admission Evaluation, and Therapy Evaluations: PT and OT will focus on regaining function with the use of assistive devices in addition to increasing ADL independence in order to return back to independent living Medical Prognosis: Good Anticipated Length of Stay: 7 days MAGGIE ESCAMILLA DO Feb 20, 2021 06:00
--- NOTE | 2021-02-20 06:00 | PM&R Progress Note ---
Subjective HPI/CC On Admission Date Seen by Provider: Feb 20, 2021 Time Seen by Provider: 09:30 Subjective/Events-last exam 02/20/2021: Pt settling in well Wants a pet pass Bed alarm initiated due to impulsive behavior Cognitive decline noted- awaits SLUM score by speech therapy Potassium 3.5 will start a potassium pill Bowels moved on 02/17/21 so will give laxatives Review of Systems General: Fatigue, Malaise Gastrointestinal: Constipation Musculoskeletal: leg pain Neurological: Confusion Objective Exam Vital Signs Vital Signs Date Time Temp Pulse Resp B/P (MAP) Pulse Ox O2 Delivery O2 Flow Rate FiO2 02/20/21 21:00 98 Room Air 02/20/21 20:00 36.8 80 20 107/53 (71) 02/19/21 13:14 2.00 Capillary Refill : General Appearance: No Apparent Distress, WD/WN, Chronically ill, Thin HEENT: PERRL/EOMI, Normal ENT Inspection, Pharynx Normal Neck: Full Range of Motion, Normal Inspection, Non Tender, Supple, Carotid Bruit Respiratory: Chest Non Tender, Lungs Clear, Normal Breath Sounds, No Accessory Muscle Use, No Respiratory Distress Cardiovascular: Regular Rate, Rhythm, No Edema, No Gallop, No JVD, No Murmur, Normal Peripheral Pulses Gastrointestinal: Normal Bowel Sounds, No Organomegaly, No Pulsatile Mass, Non Tender, Soft Back: Normal Inspection, No CVA Tenderness, No Vertebral Tenderness Extremity: Normal Capillary Refill, Normal Inspection, Normal Range of Motion (Except left leg), Non Tender, No Calf Tenderness, No Pedal Edema Neurologic/Psychiatric: Alert, Oriented x3, No Motor/Sensory Deficits, Normal M ood/Affect, Abnormal Gait, Motor Weakness Skin: Normal Color, Warm/Dry Lymphatic: No Adenopathy Results/Procedures Lab Laboratory Tests 02/20/21 05:45 Patient resulted labs reviewed. FIM Transfers Therapy Code Descriptions/Definitions Functional [place] Measure: 0=Not Assessed/NA 4=Minimal Assistance 1=Total Assistance 5=Supervision or Setup 2=Maximal Assistance 6=Modified [place] 3=Moderate Assistance 7=Complete IndependenceSCALE: Activities may be completed with or without assistive devices. 6-Awqtectzok-uclyvmh completes the activity by him/herself with no assistance from a helper. 5-Set-up or Clean-up Assistance-helper sets up or cleans up; patient completes activity. [place] assists only prior to or following the activity. 4-Supervision or Touching Assistance-helper provides verbal cues and/or touching/steadying and/or contact guard assistance as patient completes activity. Assistance may be provided throughout the activity or intermittently. 3-Partial/Moderate Assistance-helper does LESS THAN HALF the effort. [place] lifts, holds or supports trunk or limbs, but provides less than half the effort. 2-Substantial/Maximal Assistance-helper does MORE THAN HALF the effort. [place] lifts or holds trunk or limbs and provides more than half the effort. 7-Mewlodsqg-aamnqj does ALL the effort. Patient does none of the effort to complete the activity. Or, the assistance of 2 or more helpers is required for the patient to complete the activity. If activity was not attempted, code reason: 7-Patient Refused. 9-Not Applicable-not attempted and the patient did not perform the activity before the current illness, exacerbation or injury. 10-Not Attempted due to Environmental Limitations-(lack of equipment, weather restraints, etc.). 88-Not Attempted due to Medical Conditions or Safety Concerns. Roll Left to Right (QC): 3 Sit to Lying (QC): 3 Sit to Stand (QC): 4 Chair/Rdy-so-Camme Xfer(QC): 4 Car Transfer (QC): 3 Gait Training Does the Patient Walk?: Yes Walk 10 feet (QC): 4 Walk 50 ft with 2 Turns(QC): 4 Walk 150 ft (QC): 4 Walking 10ft/uneven surface-QC: 4 Gait Persons Needed: 1 Gait Assistive Device: FWW Wheelchair Training Wheel 50 ft with 2 turns (QC): 9 Wheel 150 ft (QC): 9 Stair Training #of Steps: 1 1 Step (curb) (QC): 4 4 Steps (QC): 88 12 Steps (QC): 88 Balance Picking up an Object (QC): 4 (*community health specialist) ADL-Treatment Eating (QC): 6 Oral Hygiene (QC): 7 Bathing Location: L Arm, R Arm, L Upper Leg, R Upper Leg, Chest, Abdomen, Perineal Area Shower/Bathe Self (QC): 3 Upper Body Dressing (QC): 5 Lower Body Dressing (QC): 3 On/Off Footwear (QC): 3 Toileting Hygiene (QC): 4 (SBA) Assessment/Plan Assessment and Plan Assess & Plan/Chief Complaint Assessment: Status post left hip fracture Osteoporosis COPD Former smoker Postop constipation History of CVA Cognitive decline Plan: Inpatient rehab protocol Home [facility] Supportive care 02/20/2021: Monitor confusion Supportive care Laxatives (1) Intertrochanteric fracture of left hip Status: Acute (2) History of stroke Status: Chronic MAGGIE ESCAMILLA DO Feb 20, 2021 06:00
[2021-02-20 06:09] LABS: BASOPHILS % (AUTO) 1 % (0-10); EOSINOPHILS # (AUTO) 0.1 10^3/uL (0.0-0.3); EOSINOPHILS % (AUTO) 2 % (0-10); HEMATOCRIT 33 % (35-52); HEMOGLOBIN 10.9 g/dL (11.5-16.0); LYMPHOCYTES # (AUTO) 1.1 10^3/uL (1.0-4.0); LYMPHOCYTES % (AUTO) 20 % (12-44); MEAN CORPUSCULAR HEMOGLOBIN 31 pg (25-34); MEAN CORPUSCULAR HGB CONC 33 g/dL (32-36); MEAN CORPUSCULAR VOLUME 94 fL (80-99); MEAN PLATELET VOLUME 9.3 fL (9.0-12.2); MONOCYTES # (AUTO) 0.5 10^3/uL (0.0-1.0); MONOCYTES % (AUTO) 9 % (0-12); NEUTROPHILS # (AUTO) 3.7 10^3/uL (1.8-7.8); NEUTROPHILS % (AUTO) 68 % (42-75); PLATELET COUNT 223 10^3/uL (130-400); WHITE BLOOD COUNT 5.4 10^3/uL (4.3-11.0)
[2021-02-20 06:31] LABS: ALBUMIN 3.2 GM/DL (3.2-4.5); POTASSIUM 3.5 MMOL/L (3.6-5.0)
[2021-02-20 06:32] LABS: CALCIUM 8.7 MG/DL (8.5-10.1)
[2021-02-20 06:35] LABS: BILIRUBIN,TOTAL 0.9 MG/DL (0.1-1.0)
[2021-02-20 06:37] LABS: CREATININE SERUM 0.75 MG/DL (0.60-1.30)
[2021-02-20 07:34] VITALS: BP 97/53
[2021-02-20] MEDS: CYANOCOBALAMIN 1,000 MCG (VITAMIN B-12) TABLET PO SCH (08:13)
[2021-02-20] MEDS: LACTOBACILLUS ACIDOPHILUS (PROBIOTIC) CAPSULE PO SCH (08:14)
[2021-02-20] MEDS: MULTIVIT W/MINERALS TAB (THERAGRAN M) PO SCH (08:14)
[2021-02-20] MEDS: SENNOSIDES 8.6 MG (SENOKOT) TAB PO SCH ×2 (08:14→20:37)
[2021-02-20] MEDS: CLOPIDOGREL 75 MG (PLAVIX) TABLET PO SCH (08:14)
[2021-02-20] MEDS: VITAMIN D3 25 MCG (1,000 UNITS) TABLET PO SCH (08:14)
[2021-02-20] MEDS: DOCUSATE SODIUM 100 MG (COLACE) CAP PO SCH ×3 (08:14→20:37)
[2021-02-20] MEDS: SENNA W/DOCUSATE (SENOKOT S) TABLET PO SCH ×2 (08:21→20:37)
[2021-02-20] MEDS ORDERED: KCL 10 MEQ TAB (MICRO K) PO ONE (08:30)
[2021-02-20] MEDS ORDERED: FLUTICASONE/VILANTEROL 100 MCG 14'S (BREO) IH SCH (09:00)
--- NOTE | 2021-02-20 09:04 | Occupational Ther Daily Note ---
OT Current Status-Daily Note Subjective Pt alert, sitting in recliner eating breakfast when OT entered. Pt agreed to therapy. No c/o pain reported. Mental Status/Objective Patient Orientation: Person, Place, Time, Situation ADL-Treatment Increase time taken due to pt eating breakfast. Pt declined shower on this date but agreed to get dressed for the day. Pt doffed gown at recliner. After set up, pt donned UB dressing. Pt doffed socks using dressing stick, required physical demonstration and verbal cues for proper technique. Pt able to don R sock using figure 4 technique, pt used sock aid to don L sock. Pt able to thread RLE through LB dressing, required min A to thread LLE. Pt sit-stand from chair to FWW to hike LB dressing with CGA. Pt ambulated to bathroom using FWW and transferred to toilet with SBA. Pt sit-stand using grab bars to complete toilet hygiene with SBA. Pt ambulated to sink and complete oral care, washing of face, brushing hair while standing at sink with SBA. After session, pt sitting in recliner. Call light in reach and all needs met. Therapy Code Descriptions/Definitions Functional [place] Measure: 0=Not Assessed/NA 4=Minimal Assistance 1=Total Assistance 5=Supervision or Setup 2=Maximal Assistance 6=Modified [place] 3=Moderate Assistance 7=Complete IndependenceSCALE: Activities may be completed with or without assistive devices. 3-Jvldpedudh-fzkmzhc completes the activity by him/herself with no assistance from a helper. 5-Set-up or Clean-up Assistance-helper sets up or cleans up; patient completes activity. [place] assists only prior to or following the activity. 4-Supervision or Touching Assistance-helper provides verbal cues and/or touching/steadying and/or contact guard assistance as patient completes activity. Assistance may be provided throughout the activity or intermittently. 3-Partial/Moderate Assistance-helper does LESS THAN HALF the effort. [place] lifts, holds or supports trunk or limbs, but provides less than half the effort. 2-Substantial/Maximal Assistance-helper does MORE THAN HALF the effort. [place] lifts or holds trunk or limbs and provides more than half the effort. 2-Nxbwkscsq-pqlgjy does ALL the effort. Patient does none of the effort to complete the activity. Or, the assistance of 2 or more helpers is required for the patient to complete the activity. If activity was not attempted, code reason: 7-Patient Refused. 9-Not Applicable-not attempted and the patient did not perform the activity before the current illness, exacerbation or injury. 10-Not Attempted due to Environmental Limitations-(lack of equipment, weather restraints, etc.). 88-Not Attempted due to Medical Conditions or Safety Concerns. Education OT Patient Education: Correct positioning, Modified ADL techniques, Purpose of tx/functional activities, Use of adapted equipment Teaching Recipient: Patient Teaching Methods: Demonstration, Discussion Response to Teaching: Verbalize Understanding, Return Demonstration OT Short Term Goals Short Term Goals Time Frame: Feb 26, 2021 Toileting hygiene: 5 Lower body dressin Putting on/taking off footwear: 5 OT Halfway Goals Halfway Goals Time Frame: Mar 09, 2021 Eating (QC): 6 Oral Hygiene (QC): 6 Toileting Hygiene (QC): 6 Shower/Bathe Self (QC): 6 Upper Body Dressing (QC): 6 Lower Body Dressing (QC): 6 On/Off Footwear (QC): 6 Additional Goals: 1-Demonstrate ADL Tasks, 2-Verbalize Understanding, 3- ImproveStrength/Lara 1=Demonstrate adherence to instructed precautions during ADL tasks. 2=Patient will verbalize/demonstrate understanding of assistive devices/modifications for ADL. 3=Patient will improve strength/tolerance for activity to enable patient to perform ADL's. OT Education/Plan Problem List/Assessment Assessment: Decreased Activ Tolerance, Impaired I ADL's, Impaired Self-Care Skills Discharge Recommendations Plan/Recommendations: Continue POC Treatment Plan/Plan of Care Patient would benefit from OT for education, treatment and training to promote independence in ADL's, mobility, safety and/or upper extremity function for ADL's. Plan of Care: ADL Retraining, Functional Mobility, Group Exercise/Act as Ind, UE Funct Exercise/Act Treatment Duration: Mar 09, 2021 Frequency: At least 5 of 7 days/Wk (IRF) Estimated Hrs Per Day: 1.5 hours per day Agreement: Yes Rehab Potential: Fair Time/GCodes Start Time: 08:00 Stop Time: 09:00 Total Time Billed (hr/min): 60 Billed Treatment Time 1 ADL 4 (60 mins) NATO SHEPARD Feb 20, 2021 09:04
--- NOTE | 2021-02-20 09:57 | Physical Therapy Daily Note ---
PT Daily Note-Current Subjective Pt. agrees to Rx, states she has left hip pain off and on but it feels better after she gets moving to walk etc. Pain Numeric Pain Scale: 4 Location: Left Location Body Site: Hip Pain Description: Ache Mental Status Patient Orientation: Normal For Age Transfers SCALE: Activities may be completed with or without assistive devices. 1-Bdyvvidfjf-ohcofei completes the activity by him/herself with no assistance from a helper. 5-Set-up or Clean-up Assistance-helper sets up or cleans up; patient completes activity. [place] assists only prior to or following the activity. 4-Supervision or Touching Assistance-helper provides verbal cues and/or touching/steadying and/or contact guard assistance as patient completes activity. Assistance may be provided throughout the activity or intermittently. 3-Partial/Moderate Assistance-helper does LESS THAN HALF the effort. [place] lifts, holds or supports trunk or limbs, but provides less than half the effort. 2-Substantial/Maximal Assistance-helper does MORE THAN HALF the effort. [place] lifts or holds trunk or limbs and provides more than half the effort. 2-Mkeziiwja-esickd does ALL the effort. Patient does none of the effort to complete the activity. Or, the assistance of 2 or more helpers is required for the patient to complete the activity. If activity was not attempted, code reason: 7-Patient Refused. 9-Not Applicable-not attempted and the patient did not perform the activity before the current illness, exacerbation or injury. 10-Not Attempted due to Environmental Limitations-(lack of equipment, weather restraints, etc.). 88-Not Attempted due to Medical Conditions or Safety Concerns. Roll Left & Right (QC): 4 Sit to Lying (QC): 4 Lying to Sitting/Side of Bed(Q: 4 Sit to Stand (QC): 4 Chair/Lgr-rc-Jwlwj Xfer(QC): 4 Toilet Transfer (QC): 4 much emphasis this Rx on in out bed, scooting body as far back upon the bed as possible with UEs then bringing RLE in 1st then LLE with min to CGA. this was practiced x 3. sit to stand instruction for safety using UEs pn chair arms etc Weight Bearing Left Lower Extremity: Left Weight Bearing/Tolerated Gait Training Does the Patient Walk?: Yes Walk 10 feet (QC): 4 Walk 50 ft with 2 Turns(QC): 4 Walk 150 ft (QC): 4 Gait Persons Needed: 1 Gait Assistive Device: FWW good use of AD, after walking approx 50 ft pt was able to demonstrate more even step thru pattern Exercises Supine Ex: Ankle pumps, Quad Set, Glut sets, Heel Slides, Short Arc Quads, S cooting, Straight leg raise (assisted), Hip abd/add (assisted) Supine Reps: 20 Seated Therapy Exercises: Ankle pumps, Sit to stand, Long arc quads, Hip abd/add Seated Reps: 15 Assessment Current Status: Good Progress good progress, gives full effort PT Short Term Goals Short Term Goals Time Frame: Feb 26, 2021 Roll Left & Right: 6 Sit to lyin Lying to sitting on side of be: 4 Sit to stand: 5 Chair/tfp-ap-crrsc transfer: 5 Walk 10 feet: 5 Walk 50 feet with two turns: 5 Walk 150 feet: 5 PT Residential Goals Amusement Or Recreation Card Checker Goals PT Residential Goals Time Frame: Mar 12, 2021 Roll Left & Right (QC): 6 Sit to Lying (QC): 6 Lying-Sitting on Side/Bed(QC): 6 Sit to Stand (QC): 6 Chair/Qfy-xa-Lnqhw Xfer(QC): 6 Toilet Transfer (QC): 6 Car Transfer (QC): 4 Does the Patient Walk: Yes Walk 10 feet (QC): 6 Walk 50ft with 2 Turns (QC): 6 Walk 150 ft (QC): 6 Walking 10ft on Uneven Surface: 6 1 Step (curb) (QC): 4 4 Steps (QC): 4 12 Steps (QC): 4 Picking up an Object (QC): 6 Wheel 50 feet with 2 turns (QC: 9 Wheel 150 feet: 9 PT Plan Treatment/Plan Treatment Plan: Continue Plan of Care Treatment Plan: Bed Mobility, Education, Functional Activity Lara, Functional Strength, Group Therapy, Gait, Safety, Therapeutic Exercise, Transfers Treatment Duration: Mar 12, 2021 Frequency: At least 5 of 7 days/Wk (IRF) Estimated Hrs Per Day: 1.5 hours per day Patient and/or Family Agrees t: Yes Safety Risks/Education Patient Education: Gait Training, Transfer Techniques, Reviewed Precautions, Correct Positioning, Safety Issues Teaching Recipient: Patient Teaching Methods: Demonstration, Discussion Response to Teaching: Verbalize Understanding, Return Demonstration, Reinforcement Needed Time/GCodes Time In: 900 Time Out: 1000 Total Billed Treatment Time: 60 Total Billed Treatment 1,GT20m,FA25m,EX15m LEANA BOURNE RN ACCESS Feb 20, 2021 09:57
[2021-02-20] MEDS: polyethylene glycoL POWDER 17 GM (MIRALAX) PACK PO SCH ×2 (11:57→20:37)
--- NOTE | 2021-02-20 12:00 | Occupational Ther Daily Note ---
OT Current Status-Daily Note Subjective Pt alert, visiting with daughter when OT entered. Pt agreed to therapy. No c/o pain reported. Mental Status/Objective Patient Orientation: Person, Place, Time, Situation ADL-Treatment Therapy Code Descriptions/Definitions Functional [place] Measure: 0=Not Assessed/NA 4=Minimal Assistance 1=Total Assistance 5=Supervision or Setup 2=Maximal Assistance 6=Modified [place] 3=Moderate Assistance 7=Complete IndependenceSCALE: Activities may be completed with or without assistive devices. 9-Xjhoqijrbt-jvfwqda completes the activity by him/herself with no assistance from a helper. 5-Set-up or Clean-up Assistance-helper sets up or cleans up; patient completes activity. [place] assists only prior to or following the activity. 4-Supervision or Touching Assistance-helper provides verbal cues and/or touching/steadying and/or contact guard assistance as patient completes activity. Assistance may be provided throughout the activity or intermittently. 3-Partial/Moderate Assistance-helper does LESS THAN HALF the effort. [place] lifts, holds or supports trunk or limbs, but provides less than half the effort. 2-Substantial/Maximal Assistance-helper does MORE THAN HALF the effort. [place] lifts or holds trunk or limbs and provides more than half the effort. 8-Ohglxmlmd-qsstxy does ALL the effort. Patient does none of the effort to complete the activity. Or, the assistance of 2 or more helpers is required for the patient to complete the activity. If activity was not attempted, code reason: 7-Patient Refused. 9-Not Applicable-not attempted and the patient did not perform the activity before the current illness, exacerbation or injury. 10-Not Attempted due to Environmental Limitations-(lack of equipment, weather restraints, etc.). 88-Not Attempted due to Medical Conditions or Safety Concerns. Other Treatment Skilled instruction required of green theraband exercises for proper technique. Pt completed x2 sets of 10 reps of BUE green theraband exercises to increase BUE strength for improved independence in ADLs and IADLs. Pt required physical demonstration and verbal cues for correct completion of exercises. Pt required resting break due to low activity tolerance. After session, pt sitting in recliner. Daughter present in room. All needs met and call light in reach. Education OT Patient Education: Energy conservation, Exercise program, Home exercise program Teaching Recipient: Patient, Family Teaching Methods: Demonstration, Handout, Discussion Response to Teaching: Verbalize Understanding, Return Demonstration OT Short Term Goals Short Term Goals Time Frame: Feb 26, 2021 Toileting hygiene: 5 Lower body dressin Putting on/taking off footwear: 5 OT Intermediate Goals Intermediate Goals Time Frame: Mar 09, 2021 Eating (QC): 6 Oral Hygiene (QC): 6 Toileting Hygiene (QC): 6 Shower/Bathe Self (QC): 6 Upper Body Dressing (QC): 6 Lower Body Dressing (QC): 6 On/Off Footwear (QC): 6 Additional Goals: 1-Demonstrate ADL Tasks, 2-Verbalize Understanding, 3- ImproveStrength/Lara 1=Demonstrate adherence to instructed precautions during ADL tasks. 2=Patient will verbalize/demonstrate understanding of assistive devices/modific ations for ADL. 3=Patient will improve strength/tolerance for activity to enable patient to perform ADL's. OT Education/Plan Problem List/Assessment Assessment: Decreased Activ Tolerance, Decreased UE Strength, Impaired I ADL's, Impaired Self-Care Skills Discharge Recommendations Plan/Recommendations: Continue POC Treatment Plan/Plan of Care Patient would benefit from OT for education, treatment and training to promote independence in ADL's, mobility, safety and/or upper extremity function for ADL's. Plan of Care: ADL Retraining, Functional Mobility, Group Exercise/Act as Ind, UE Funct Exercise/Act Treatment Duration: Mar 09, 2021 Frequency: At least 5 of 7 days/Wk (IRF) Estimated Hrs Per Day: 1.5 hours per day Agreement: Yes Rehab Potential: Fair Time/GCodes Start Time: 11:30 Stop Time: 12:00 Total Time Billed (hr/min): 30 Billed Treatment Time 1 visit- EX 2 (30 mins) NATO SHEPARD Feb 20, 2021 12:00
--- NOTE | 2021-02-20 12:00 | Physical Therapy Daily Note ---
PT Daily Note-Current Subjective Pt. is having difficulty having BM and asks to go to bathroom 1st. No c/o pain Pain Location: No Pain Reported Mental Status Patient Orientation: Normal For Age Transfers SCALE: Activities may be completed with or without assistive devices. 6-Qwojrejdsb-gcjaawz completes the activity by him/herself with no assistance from a helper. 5-Set-up or Clean-up Assistance-helper sets up or cleans up; patient completes activity. [place] assists only prior to or following the activity. 4-Supervision or Touching Assistance-helper provides verbal cues and/or touching/steadying and/or contact guard assistance as patient completes activity. Assistance may be provided throughout the activity or intermittently. 3-Partial/Moderate Assistance-helper does LESS THAN HALF the effort. [place] lifts, holds or supports trunk or limbs, but provides less than half the effort. 2-Substantial/Maximal Assistance-helper does MORE THAN HALF the effort. [place] lifts or holds trunk or limbs and provides more than half the effort. 3-Xcecrtyor-fyspdm does ALL the effort. Patient does none of the effort to complete the activity. Or, the assistance of 2 or more helpers is required for the patient to complete the activity. If activity was not attempted, code reason: 7-Patient Refused. 9-Not Applicable-not attempted and the patient did not perform the activity before the current illness, exacerbation or injury. 10-Not Attempted due to Environmental Limitations-(lack of equipment, weather restraints, etc.). 88-Not Attempted due to Medical Conditions or Safety Concerns. sit to stand toilet and chair all Mod I Weight Bearing Left Lower Extremity: Left Weight Bearing/Tolerated Gait Training Does the Patient Walk?: Yes Gait Assistive Device: FWW 160 ft x 2 CGA, improved step through and more even step length, safe use of AD Stair Training Stair Training: Handrails/: 2 handrails #of Steps: 4 4 Steps (QC): 4 Stairs: Pattern: Step to instructions for sequence , safe turning and use of hands Exercises Seated Therapy Exercises: Ankle pumps, Sit to stand, Long arc quads, Hip abd/add Seated Reps: 20 Assessment Current Status: Good Progress PT Short Term Goals Short Term Goals Time Frame: Feb 26, 2021 Roll Left & Right: 6 Sit to lyin Lying to sitting on side of be: 4 Sit to stand: 5 Chair/qgn-ug-ewwnt transfer: 5 Walk 10 feet: 5 Walk 50 feet with two turns: 5 Walk 150 feet: 5 PT Assisted Goals Assisted Goals PT Handbell Choir Director Goals Time Frame: Mar 12, 2021 Roll Left & Right (QC): 6 Sit to Lying (QC): 6 Lying-Sitting on Side/Bed(QC): 6 Sit to Stand (QC): 6 Chair/Jmj-mz-Iyjzq Xfer(QC): 6 Toilet Transfer (QC): 6 Car Transfer (QC): 4 Does the Patient Walk: Yes Walk 10 feet (QC): 6 Walk 50ft with 2 Turns (QC): 6 Walk 150 ft (QC): 6 Walking 10ft on Uneven Surface: 6 1 Step (curb) (QC): 4 4 Steps (QC): 4 12 Steps (QC): 4 Picking up an Object (QC): 6 Wheel 50 feet with 2 turns (QC: 9 Wheel 150 feet: 9 PT Plan Treatment/Plan Treatment Plan: Continue Plan of Care Treatment Plan: Bed Mobility, Education, Functional Activity L[place], Functional Strength, Group Therapy, Gait, Safety, Therapeutic Exercise, Transfers Treatment Duration: Mar 12, 2021 Frequency: At least 5 of 7 days/Wk (IRF) Estimated Hrs Per Day: 1.5 hours per day Patient and/or Family Agrees t: Yes Safety Risks/Education Patient Education: Gait Training, Transfer Techniques, Steps, Correct Positioning, Safety Issues Teaching Recipient: Patient Teaching Methods: Demonstration, Discussion Response to Teaching: Verbalize Understanding, Return Demonstration, Reinforcement Needed Time/GCodes Time In: 1100 Time Out: 1130 Total Billed Treatment Time: 30 Total Billed Treatment 1,GT15m,FA15m LEANA BOURNE CISCO UNIFIED COMMUNICATIONS ENGINEER Feb 20, 2021 12:00
[2021-02-20] MEDS: ENOXAPARIN 30 MG/0.3 ML (LOVENOX) SYR SC SCH (14:33)
[2021-02-20 20:00] VITALS: BP 107/53
[2021-02-20] MEDS ORDERED: NON-FORMULARY MEDICATION 1 EA EA (Escitalopram Oxalate 10 MG) PO SCH (21:00)
[2021-02-21] MEDS: KCL 10 MEQ TAB (MICRO K) PO SCH (06:41)
--- NOTE | 2021-02-21 06:47 | PM&R Progress Note ---
Subjective HPI/CC On Admission Date Seen by Provider: Feb 21, 2021 Time Seen by Provider: 09:00 Subjective/Events-last exam 02/21/2021: Pt doing about the same Hgb 10.9 Had a previous CVA so likely causes the confusion Pet pass is very thrilling for her Bowels moved a small amount but will maintain the laxatives for her 02/20/2021: Pt settling in well Wants a pet pass Bed alarm initiated due to impulsive behavior Cognitive decline noted- awaits SLUM score by speech therapy Potassium 3.5 will start a potassium pill Bowels moved on 02/17/21 so will give laxatives Review of Systems General: Fatigue, Malaise Gastrointestinal: Constipation Musculoskeletal: leg pain Objective Exam Vital Signs Vital Signs Date Time Temp Pulse Resp B/P (MAP) Pulse Ox O2 Delivery O2 Flow Rate FiO2 02/21/21 21:11 Room Air 02/21/21 20:18 37.6 86 94 21 02/21/21 19:49 18 116/58 (77) 02/19/21 13:14 2.00 Capillary Refill : General Appearance: No Apparent Distress, WD/WN, Chronically ill, Thin HEENT: PERRL/EOMI, Normal ENT Inspection, Pharynx Normal Neck: Full Range of Motion, Normal Inspection, Non Tender, Supple, Carotid Bruit Respiratory: Chest Non Tender, Lungs Clear, Normal Breath Sounds, No Accessory Muscle Use, No Respiratory Distress Cardiovascular: Regular Rate, Rhythm, No Edema, No Gallop, No JVD, No Murmur, Normal Peripheral Pulses Gastrointestinal: Normal Bowel Sounds, No Organomegaly, No Pulsatile Mass, Non Tender, Soft Back: Normal Inspection, No CVA Tenderness, No Vertebral Tenderness Extremity: Normal Capillary Refill, Normal Inspection, Normal Range of Motion (Except left leg), Non Tender, No Calf Tenderness, No Pedal Edema Neurologic/Psychiatric: Alert, Oriented x3, No Motor/Sensory Deficits, Normal Mood/Affect, Abnormal Gait, Motor Weakness Skin: Normal Color, Warm/Dry Lymphatic: No Adenopathy Results/Procedures Lab Patient resulted labs reviewed. FIM Transfers Therapy Code Descriptions/Definitions Functional [place] Measure: 0=Not Assessed/NA 4=Minimal Assistance 1=Total Assistance 5=Supervision or Setup 2=Maximal Assistance 6=Modified [place] 3=Moderate Assistance 7=Complete IndependenceSCALE: Activities may be completed with or without assistive devices. 9-Fugmnwvvaf-etcizro completes the activity by him/herself with no assistance from a helper. 5-Set-up or Clean-up Assistance-helper sets up or cleans up; patient completes activity. [place] assists only prior to or following the activity. 4-Supervision or Touching Assistance-helper provides verbal cues and/or touching/steadying and/or contact guard assistance as patient completes activity. Assistance may be provided throughout the activity or intermittently. 3-Partial/Moderate Assistance-helper does LESS THAN HALF the effort. [place] lifts, holds or supports trunk or limbs, but provides less than half the effort. 2-Substantial/Maximal Assistance-helper does MORE THAN HALF the effort. [place] lifts or holds trunk or limbs and provides more than half the effort. 7-Hqrsbfodm-bddrdu does ALL the effort. Patient does none of the effort to complete the activity. Or, the assistance of 2 or more helpers is required for the patient to complete the activity. If activity was not attempted, code reason: 7-Patient Refused. 9-Not Applicable-not attempted and the patient did not perform the activity before the current illness, exacerbation or injury. 10-Not Attempted due to Environmental Limitations-(lack of equipment, weather restraints, etc.). 88-Not Attempted due to Medical Conditions or Safety Concerns. 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) ADL-Treatment Eating (QC): 6 Oral Hygiene (QC): 7 Bathing Location: L Arm, R Arm, L Upper Leg, R Upper Leg, Chest, Abdomen, Perineal Area Shower/Bathe Self (QC): 3 Upper Body Dressing (QC): 5 Lower Body Dressing (QC): 3 On/Off Footwear (QC): 3 Toileting Hygiene (QC): 4 (SBA) Assessment/Plan Assessment and Plan Assess & Plan/Chief Complaint Assessment: Status post left hip fracture Osteoporosis COPD Former smoker Postop constipation History of CVA Cognitive decline Plan: Inpatient rehab protocol Home meds Supportive care 02/20/2021: Monitor confusion Supportive care Laxatives 02/21/2021: Supportive care Pet Pass (1) Intertrochanteric fracture of left hip Status: Acute (2) History of stroke Status: Chronic MAGGIE ESCAMILLA DO Feb 21, 2021 06:47
[2021-02-21 08:00] VITALS: BP 115/82
[2021-02-21] MEDS: RT--FLUTICASONE/SALMETEROL 113-14 (AIRDUO RespiCLICK) IH SCH (08:17)
[2021-02-21] MEDS: DOCUSATE SODIUM 100 MG (COLACE) CAP PO SCH ×2 (08:20→19:52)
[2021-02-21] MEDS: MULTIVIT W/MINERALS TAB (THERAGRAN M) PO SCH (08:20)
[2021-02-21] MEDS: LACTOBACILLUS ACIDOPHILUS (PROBIOTIC) CAPSULE PO SCH (08:20)
[2021-02-21] MEDS: polyethylene glycoL POWDER 17 GM (MIRALAX) PACK PO SCH ×2 (08:21→19:52)
[2021-02-21] MEDS: VITAMIN D3 25 MCG (1,000 UNITS) TABLET PO SCH (08:21)
[2021-02-21] MEDS: CLOPIDOGREL 75 MG (PLAVIX) TABLET PO SCH (08:21)
[2021-02-21] MEDS: SENNA W/DOCUSATE (SENOKOT S) TABLET PO SCH ×2 (08:21→19:53)
[2021-02-21] MEDS: CYANOCOBALAMIN 1,000 MCG (VITAMIN B-12) TABLET PO SCH (08:21)
[2021-02-21] MEDS: SENNOSIDES 8.6 MG (SENOKOT) TAB PO SCH ×2 (09:00→19:53)
--- NOTE | 2021-02-21 09:44 | Speech Therapy Progress Note ---
Therapy Progress Note During the initial assessment, the patient scored a borderline SLUMS score of +26/30 correlating with a mild neurocognitive impairment. The clinician discussed speech pathology services with the patient and she politely declined stating she would like to focus her rehabilitation on "strengthening." The clinician continued to monitor the patient's chart for cognitive difficulties, decline, or impairments which would place the patient at a safety risk for an independent return home or be a possible barrier for improvement with the rehabilitation process (physical therapy, occupational therapy). Through chart reviews, the patient appears to be displaying increased impulsive behaviors and requirements of safety cues. Due to this, the clinician requested an order for an additional cognitive evaluation and subsequent cognitive therapy. The order was placed by the patient's RN, Jaylene, and acknowledged by this clinician. The follow-up cognitive evaluation will occur on this date with therapy following. GERMÁN SERNA Feb 21, 2021 09:44
--- NOTE | 2021-02-21 09:55 | ST Cognitive Linguistic Eval ---
Speech Evaluation-General Medical Diagnosis L hip fracture s/p IM nail Onset Date: Feb 15, 2021 Therapy Diagnosis Therapy Diagnosis: Mild to Moderate Cognitive Impairment Precautions Precautions: Fall, Hip Referral Referring Physician: Dr. Lou Reason for Referral: Evaluation/Treatment Medical History Pertinent Medical History: COPD, CVA Current History *Please see prior neurocognitive evaluation performed by speech language pathology (02/19/21) for prior medical history. Reviewed History: Yes Social History Current Living Status: Children (grown son) Speech PLF-Current Status Prior Level of Function The patient currently lives at home with her son, Carlo, and a dog. Prior to admission, the patient was independent with ADL's. Subjective The patient was seated upright in her recliner upon entrance to the room. The patient greeted the clinician appropriately and was agreeable to participation in the cognitive linguistic evaluation. During the initial assessment, the patient scored a borderline SLUMS score of +26/30 correlating with a mild neurocognitive impairment. The clinician discussed speech pathology services with the patient at that time and she politely declined stating she would like to focus her rehabilitation on "strengthening." The clinician continued to monitor the patient's chart for cognitive difficulties, decline, or impairments which would place the patient at a safety risk for an independent return home or be a possible barrier for improvement with the rehabilitation process (physical therapy, occupational therapy). Through chart reviews, the patient appears to be displaying increased impulsive behaviors and requirements of safety cues. Due to this, the clinician requested an order for an additional cognitive evaluation and subsequent cognitive therapy. The order was placed by the patient's RN, Jaylene, and acknowledged by this clinician. Language Eval: Auditory Comprehends Simple Yes/No Ques: Functional Indent/Objects [place]: Functional Ident/Pics in [place]: Functional Follows 1-Step Commands: Functional Follows Complex Directions: Mild Follows General Conversations: Mild Language Eval: Verbal Language Completes Spontaneous Greeting: Functional Produces Auto, Serial Info: Functional Imitates Simple Words/Phrases: Functional Word Finding: Mild Requests Basic Needs: Functional States Basic Personal Info: Functional Expresses Complex Ideas: Functional Language Evaluation: Reading Comprehends Single Nouns: Functional Follows Simple Written Direct: Functional Language Evaluation: Writing Copies/Traces: Functional Writes to Simple Dictation: Functional Writes Personal Information: Functional Cognitive Patient Orientation The patient is independently oriented to date, month, year, day of week, place, and city. Objective Cognitive Domain Attention: Mild Memory: Mild (Mild to moderate.) Problem Solving: Mild Executive Functions: Moderate Visuospatial Skills: WNL Composite Severity Rating: Mild (Mild to moderate.) Clock Drawing Severity Rating: Mild Objective Formal/Standardized Tests [place] Cognitive Assessment (MoCA)- Version One Results The patient displayed a result of +22/30 on the MoCA correlating to a mild to moderate cognitive deficit. Specific impairments will be discussed in the "impression" section below. Oral Motor/Speech Production The patient does not display dysarthria or apraxia of speech. The patient remains 100% intelligible in known and unknown contexts. Impression The patient is a 85 year old female, who presents with a mild to moderate cognitive impairment based on the results of the MoCA and SLUMS. The patient displayed impairments in the areas of executive functioning (problem solving) and memory. As the patient wishes to return home independently, speech language pathology will provided skilled services to monitor cognitive function and assess safety throughout her daily tasks prior to discharge recommendations. To note, at the initiation of the session the clinician provided the patient with a fresh cup of coffee. At the close of the session (approximately 25 minutes following), the patient stated, "Some nice girl brought me in some more coffee but now it's cold." The patient does not recall the clinician provided the coffee and the clinician has not left the room or ceased conversation with the patient (poor delayed recall ability). Speech Patient Assess Expression of Ideas/Wants: Exhibits (3) Understanding Verbal Content: Usually Understands (3) Brief Interview-Mental Status: Yes Repetition of Three Words: Three (3) Temporal Orientation: Year: Correct (3) Temporal Orientation: Month: Accurate within 5 days(2) Temporal Orientation: Day: Correct (1) Recall : Wear to say "Sock": Yes, no cue required (2) Recall : Color: Yes, no cue required (2) Recall : Bed: Yes,after cueing (1) Memory/Recall Ability: Current season, That he or she is in a hsp/hsp unit Speech Short Term Goals Short Term Goals Short Term Goals 1. The patient will display increased accuracy (80%) with functional memory strategies, independently. 2. The patient will complete functional problem solving tasks with 80% accuracy, independently. Time Frame-STG: Two Weeks. Speech Detention Goals Detention Goals 1. The patient will demonstrate improved cognitive linguistic function for increased independence and return to the least restrictive environment. Time Frame: Three weeks. Speech-Plan Patient/Family Goals Patient/Family Goals: The patient wishes to return home, independently, with her son. Treatment Plan Speech Therapy Treatment Plan: Continue Plan of Care Treatment Duration: Feb 19, 2021 Frequency: 4 times per week (Four to five times per week.) Estimated Hrs Per Day: .25 hour per day Rehab Potential: Fair Barriers to Learning: Cognitive impairments (fluctuating). Pt/Family Agrees to Plan: Yes Safety Risks/Education Teaching Recipient: Patient Teaching Methods: Discussion Response to Teaching: Verbalize Understanding, Reinforcement Needed Education Topics Provided: Plan of care, Results of MoCA Time Speech Therapy Time In: 08:18 Speech Therapy Time Out: 08:52 Total Billed Time: 34 Billed Treatment Time 1, JOHANN HORTON [facility] Feb 21, 2021 09:55
--- NOTE | 2021-02-21 10:11 | Occupational Ther Daily Note ---
OT Current Status-Daily Note Subjective Pt alert, sitting in recliner. 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 Pt agrees to therapy. C/o pain with movement, no pain otherwise. Mental Status/Objective Patient Orientation: Person, Place, Time, Situation ADL-Treatment Pt agrees to shower. Pt required a few vc for safety throughout session. Pt ambulated to bathroom using FWW with SBA. SBA for toilet transfer and toileting. Pt stood for 50% of the shower without LOB, SBA for safety. Pt able to cleanse all areas except L foot, will need LH sponge. Setup for upper body dressing. Min A for lower body dressing, assist to thread L foot then pt able to complete rest of task with SBA. After session, pt sitting in recliner and PT took over care. All needs met in room. Therapy Code Descriptions/Definitions Functional [place] Measure: 0=Not Assessed/NA 4=Minimal Assistance 1=Total Assistance 5=Supervision or Setup 2=Maximal Assistance 6=Modified [place] 3=Moderate Assistance 7=Complete IndependenceSCALE: Activities may be completed with or without assistive devices. 5-Ilslctvxoq-hhhxycf completes the activity by him/herself with no assistance from a helper. 5-Set-up or Clean-up Assistance-helper sets up or cleans up; patient completes activity. [place] assists only prior to or following the activity. 4-Supervision or Touching Assistance-helper provides verbal cues and/or touching/steadying and/or contact guard assistance as patient completes activity. Assistance may be provided throughout the activity or intermittently. 3-Partial/Moderate Assistance-helper does LESS THAN HALF the effort. [place] lifts, holds or supports trunk or limbs, but provides less than half the effort. 2-Substantial/Maximal Assistance-helper does MORE THAN HALF the effort. [place] lifts or holds trunk or limbs and provides more than half the effort. 3-Oqdvbenjw-jovfpc does ALL the effort. Patient does none of the effort to complete the activity. Or, the assistance of 2 or more helpers is required for the patient to complete the activity. If activity was not attempted, code reason: 7-Patient Refused. 9-Not Applicable-not attempted and the patient did not perform the activity before the current illness, exacerbation or injury. 10-Not Attempted due to Environmental Limitations-(lack of equipment, weather restraints, etc.). 88-Not Attempted due to Medical Conditions or Safety Concerns. Eating (QC): 6 (per clinical judgment) Oral Hygiene (QC): 6 (in sitting per clinical judgment) Shower/Bathe Self (QC): 3 Upper Body Dressing (QC): 5 Lower Body Dressing (QC): 3 On/Off Footwear: 2 (max A) Toileting Hygiene (QC): 4 Toilet Transfer (QC): 4 OT Short Term Goals Short Term Goals Time Frame: Feb 26, 2021 Toileting hygiene: 5 Lower body dressin Putting on/taking off footwear: 5 OT Fdc Goals Instrumental Musician Goals Time Frame: Mar 09, 2021 Eating (QC): 6 Oral Hygiene (QC): 6 Toileting Hygiene (QC): 6 Shower/Bathe Self (QC): 6 Upper Body Dressing (QC): 6 Lower Body Dressing (QC): 6 On/Off Footwear (QC): 6 Additional Goals: 1-Demonstrate ADL Tasks, 2-Verbalize Understanding, 3- ImproveStrength/Lara 1=Demonstrate adherence to instructed precautions during ADL tasks. 2=Patient will verbalize/demonstrate understanding of assistive devices/modifi cations for ADL. 3=Patient will improve strength/tolerance for activity to enable patient to perform ADL's. OT Education/Plan Problem List/Assessment Assessment: Decreased Activ Tolerance, Decreased Safety Aware, Impaired Self- Care Skills Discharge Recommendations Plan/Recommendations: Continue POC Treatment Plan/Plan of Care Patient would benefit from OT for education, treatment and training to promote independence in ADL's, mobility, safety and/or upper extremity function for ADL's. Plan of Care: ADL Retraining, Functional Mobility, Group Exercise/Act as Ind, UE Funct Exercise/Act Treatment Duration: Mar 09, 2021 Frequency: At least 5 of 7 days/Wk (IRF) Estimated Hrs Per Day: 1.5 hours per day Agreement: Yes Rehab Potential: Fair Time/GCodes Start Time: 09:00 Stop Time: 10:00 Total Time Billed (hr/min): 60 Billed Treatment Time 1 visit-ADL 4 (60 min) JOSE G RUIZ Feb 21, 2021 10:11
--- NOTE | 2021-02-21 12:32 | Physical Therapy Daily Note ---
PT Daily Note-Current Subjective Pt agreeable to exercise. Alert, slow to process some conversation. Transfers SCALE: Activities may be completed with or without assistive devices. 5-Bpyuchygnc-wqoniii completes the activity by him/herself with no assistance from a helper. 5-Set-up or Clean-up Assistance-helper sets up or cleans up; patient completes activity. [place] assists only prior to or following the activity. 4-Supervision or Touching Assistance-helper provides verbal cues and/or touching/steadying and/or contact guard assistance as patient completes a ctivity. Assistance may be provided throughout the activity or intermittently. 3-Partial/Moderate Assistance-helper does LESS THAN HALF the effort. [place] lifts, holds or supports trunk or limbs, but provides less than half the effort. 2-Substantial/Maximal Assistance-helper does MORE THAN HALF the effort. [place] lifts or holds trunk or limbs and provides more than half the effort. 9-Uikhuqrqc-timrrp does ALL the effort. Patient does none of the effort to complete the activity. Or, the assistance of 2 or more helpers is required for the patient to complete the activity. If activity was not attempted, code reason: 7-Patient Refused. 9-Not Applicable-not attempted and the patient did not perform the activity before the current illness, exacerbation or injury. 10-Not Attempted due to Environmental Limitations-(lack of equipment, weather restraints, etc.). 88-Not Attempted due to Medical Conditions or Safety Concerns. Lying to Sitting/Side of Bed(Q: 4 Sit to Stand (QC): 4 Chair/Unf-xf-Xbevz Xfer(QC): 4 Weight Bearing Left Lower Extremity: Left Weight Bearing/Tolerated Gait Training Walk 150 ft (QC): 4 Gait Persons Needed: 1 Gait Assistive Device: FWW Ambulate 150ft x 2 trials both with FWW and CGA. Education on swing through gait pattern. Pt able to perform swing through but does report increase in (L) hip pain during stance. Exercises Supine Ex: LE Protocol Supine Reps: 20 Seated Therapy Exercises: Ankle pumps Standing: Hip Abduction, Heel/toe raises, 3 way Ex=Flex, Abd, Ext, Marching, Mini squats Standing Reps: 10 Assessment Current Status: Good Progress (Improved gait sequence to swing through pattern this session. Advanced gait and exercise.) PT Short Term Goals Short Term Goals Time Frame: Feb 26, 2021 Roll Left & Right: 6 Sit to lyin Lying to sitting on side of be: 4 Sit to stand: 5 Chair/rag-ct-fqxsk transfer: 5 Walk 10 feet: 5 Walk 50 feet with two turns: 5 Walk 150 feet: 5 PT Motor Analyst Goals Mcfp Goals PT Motor Analyst Goals Time Frame: Mar 12, 2021 Roll Left & Right (QC): 6 Sit to Lying (QC): 6 Lying-Sitting on Side/Bed(QC): 6 Sit to Stand (QC): 6 Chair/Sls-rn-Nuimb Xfer(QC): 6 Toilet Transfer (QC): 6 Car Transfer (QC): 4 Does the Patient Walk: Yes Walk 10 feet (QC): 6 Walk 50ft with 2 Turns (QC): 6 Walk 150 ft (QC): 6 Walking 10ft on Uneven Surface: 6 1 Step (curb) (QC): 4 4 Steps (QC): 4 12 Steps (QC): 4 Picking up an Object (QC): 6 Wheel 50 feet with 2 turns (QC: 9 Wheel 150 feet: 9 PT Plan Treatment/Plan Treatment Plan: Continue Plan of Care Treatment Plan: Bed Mobility, Education, Functional Activity Lara, Functional Strength, Group Therapy, Gait, Safety, Therapeutic Exercise, Transfers Treatment Duration: Mar 12, 2021 Frequency: At least 5 of 7 days/Wk (IRF) Estimated Hrs Per Day: 1.5 hours per day Patient and/or Family Agrees t: Yes Time/GCodes Time In: 1000 Time Out: 1100 Total Billed Treatment Time: 60 Total Billed Treatment visit, ex 30min, FA 15min, gait 15min TRU YUAN PT Feb 21, 2021 12:32
--- NOTE | 2021-02-21 13:30 | Occupational Ther Daily Note ---
OT Current Status-Daily Note Subjective Pt alert, sitting in recliner. Pt agrees to therapy. No c/o pain when sitting. Mental Status/Objective Patient Orientation: Person, Place, Time, Situation ADL-Treatment Pt able to complete toileting with supervision for safety. Standing at sink, pt able to complete oral care and grooming independently. Pt then ambulated back to recliner. After session, pt sitting in recliner with call light and phone in reach. All needs met in room. Therapy Code Descriptions/Definitions Functional [place] Measure: 0=Not Assessed/NA 4=Minimal Assistance 1=Total Assistance 5=Supervision or Setup 2=Maximal Assistance 6=Modified [place] 3=Moderate Assistance 7=Complete IndependenceSCALE: Activities may be completed with or without assistive devices. 9-Cqhhthrqmc-tmcydhe completes the activity by him/herself with no assistance from a helper. 5-Set-up or Clean-up Assistance-helper sets up or cleans up; patient completes activity. [place] assists only prior to or following the activity. 4-Supervision or Touching Assistance-helper provides verbal cues and/or touching/steadying and/or contact guard assistance as patient completes activity. Assistance may be provided throughout the activity or intermittently. 3-Partial/Moderate Assistance-helper does LESS THAN HALF the effort. [place] l ifts, holds or supports trunk or limbs, but provides less than half the effort. 2-Substantial/Maximal Assistance-helper does MORE THAN HALF the effort. [place] lifts or holds trunk or limbs and provides more than half the effort. 5-Kejwdqukz-mkjdrj does ALL the effort. Patient does none of the effort to complete the activity. Or, the assistance of 2 or more helpers is required for t he patient to complete the activity. If activity was not attempted, code reason: 7-Patient Refused. 9-Not Applicable-not attempted and the patient did not perform the activity before the current illness, exacerbation or injury. 10-Not Attempted due to Environmental Limitations-(lack of equipment, weather restraints, etc.). 88-Not Attempted due to Medical Conditions or Safety Concerns. Oral Hygiene (QC): 6 OT Short Term Goals Short Term Goals Time Frame: Feb 26, 2021 Toileting hygiene: 5 Lower body dressin Putting on/taking off footwear: 5 OT Inspector Precision Goals Inspector Precision Goals Time Frame: Mar 09, 2021 Eating (QC): 6 Oral Hygiene (QC): 6 Toileting Hygiene (QC): 6 Shower/Bathe Self (QC): 6 Upper Body Dressing (QC): 6 Lower Body Dressing (QC): 6 On/Off Footwear (QC): 6 Additional Goals: 1-Demonstrate ADL Tasks, 2-Verbalize Understanding, 3- ImproveStrength/Lara 1=Demonstrate adherence to instructed precautions during ADL tasks. 2=Patient will verbalize/demonstrate understanding of assistive devices/modifications for ADL. 3=Patient will improve strength/tolerance for activity to enable patient to perform ADL's. OT Education/Plan Problem List/Assessment Assessment: Decreased Activ Tolerance, Impaired Self-Care Skills Discharge Recommendations Plan/Recommendations: Continue POC Treatment Plan/Plan of Care Patient would benefit from OT for education, treatment and training to promote independence in ADL's, mobility, safety and/or upper extremity function for ADL's. Plan of Care: ADL Retraining, Functional Mobility, Group Exercise/Act as Ind, UE Funct Exercise/Act Treatment Duration: Mar 09, 2021 Frequency: At least 5 of 7 days/Wk (IRF) Estimated Hrs Per Day: 1.5 hours per day Agreement: Yes Rehab Potential: Fair Time/GCodes Start Time: 12:55 Stop Time: 13:25 Total Time Billed (hr/min): 30 Billed Treatment Time 1 visit-ADL 2 (30 min) JOSE G RUIZ Feb 21, 2021 13:30
[2021-02-21] MEDS: ENOXAPARIN 30 MG/0.3 ML (LOVENOX) SYR SC SCH (14:28)
--- NOTE | 2021-02-21 15:16 | Physical Therapy Daily Note ---
PT Daily Note-Current Subjective Pt up reading the paper. Says she is stiff from sitting in the bedside chair for the past hour. Transfers SCALE: Activities may be completed with or without assistive devices. 1-Zpzxasvsnq-gqqxdza completes the activity by him/herself with no assistance from a helper. 5-Set-up or Clean-up Assistance-helper sets up or cleans up; patient completes activity. [place] assists only prior to or following the activity. 4-Supervision or Touching Assistance-helper provides verbal cues and/or touching/steadying and/or contact guard assistance as patient completes activity. Assistance may be provided throughout the activity or intermittently. 3-Partial/Moderate Assistance-helper does LESS THAN HALF the effort. [place] lifts, holds or supports trunk or limbs, but provides less than half the effort. 2-Substantial/Maximal Assistance-helper does MORE THAN HALF the effort. [place] lifts or holds trunk or limbs and provides more than half the effort. 1-Gekxprsiz-uhsayd does ALL the effort. Patient does none of the effort to complete the activity. Or, the assistance of 2 or more helpers is required for the patient to complete the activity. If activity was not attempted, code reason: 7-Patient Refused. 9-Not Applicable-not attempted and the patient did not perform the activity before the current illness, exacerbation or injury. 10-Not Attempted due to Environmental Limitations-(lack of equipment, weather restraints, etc.). 88-Not Attempted due to Medical Conditions or Safety Concerns. Sit to Stand (QC): 4 Chair/Fkk-bg-Frqla Xfer(QC): 4 verbal cues for use of hands on arm rests of chair to assist up/down from chair Weight Bearing Left Lower Extremity: Left Weight Bearing/Tolerated Gait Training Gait Assistive Device: FWW Ambulate 150ft x 2 trials with FWW and verbal cues to use swing through gait. Exercises Standin way Ex=Flex, Abd, Ext, Mini squats Standing Reps: 10 Assessment Current Status: Good Progress Pt is progressing toward intermediate project manager goals. She will benefit from continued skilled therapy intervention. PT Short Term Goals Short Term Goals Time Frame: Feb 26, 2021 Roll Left & Right: 6 Sit to lyin Lying to sitting on side of be: 4 Sit to stand: 5 Chair/xqw-pp-yuxik transfer: 5 Walk 10 feet: 5 Walk 50 feet with two turns: 5 Walk 150 feet: 5 PT [facility] Goals [facility] Goals PT [facility] Goals Time Frame: Mar 12, 2021 Roll Left & Right (QC): 6 Sit to Lying (QC): 6 Lying-Sitting on Side/Bed(QC): 6 Sit to Stand (QC): 6 Chair/Mxr-rm-[place] Xfer(QC): 6 Toilet Transfer (QC): 6 Car Transfer (QC): 4 Does the Patient Walk: Yes Walk 10 feet (QC): 6 Walk 50ft with 2 Turns (QC): 6 Walk 150 ft (QC): 6 Walking 10ft on Uneven Surface: 6 1 Step (curb) (QC): 4 4 Steps (QC): 4 12 Steps (QC): 4 Picking up an Object (QC): 6 Wheel 50 feet with 2 turns (QC: 9 Wheel 150 feet: 9 PT Plan Treatment/Plan Treatment Plan: Continue Plan of Care Treatment Plan: Bed Mobility, Education, Functional Activity Lara, Functional Strength, Group Therapy, Gait, Safety, Therapeutic Exercise, Transfers Treatment Duration: Mar 12, 2021 Frequency: At least 5 of 7 days/Wk (IRF) Estimated Hrs Per Day: 1.5 hours per day Patient and/or Family Agrees t: Yes Time/GCodes Time In: 1315 Time Out: 1330 Total Billed Treatment Time: 15 Total Billed Treatment VISIT, gait 10min, ex 5 min TRU YUAN PT Feb 21, 2021 15:16
[2021-02-21 19:49] VITALS: BP 116/58
[2021-02-21 20:18] VITALS: BP 116/58
[2021-02-22] MEDS: KCL 10 MEQ TAB (MICRO K) PO SCH (06:16)
[2021-02-22 07:20] VITALS: BP 113/58
--- NOTE | 2021-02-22 07:53 | Occupational Ther Daily Note ---
OT Current Status-Daily Note Subjective Pt alert, sitting in recliner. Pt agrees to therapy. No c/o pain. Mental Status/Objective Patient Orientation: Person, Place, Time, Situation ADL-Treatment Pt declines shower, stating that she took one yesterday. Pt takes increased time to complete all tasks due to slow movements and hyperverbal. Pt independent with eating. Educated pt on use of AE for donning/doffing footwear. This has been completed by OT prior to this session, pt could not remember using equipment. After instruction, pt able to use dressing stick to doff Lsock with 1 verbal cue while completing task. 2 verbal cues to apply sock to sock aide and use sock aide to don L sock. Pt able to don/doff R sock by self using figure 4 tech. Pt then ambulated to bathroom using FWW by self. Transfer using FWW and BSC over toilet by self. Pt stood at sink to cleanse hands independently. Pt then ambulated back to recliner. After session, pt sitting in recliner with call light/phone in reach. All needs met in room. Therapy Code Descriptions/Definitions Functional [place] Measure: 0=Not Assessed/NA 4=Minimal Assistance 1=Total Assistance 5=Supervision or Setup 2=Maximal Assistance 6=Modified [place] 3=Moderate Assistance 7=Complete IndependenceSCALE: Activities may be completed with or without assistive devices. 1-Kheoxwlddx-hhpqhgt completes the activity by him/herself with no assistance from a helper. 5-Set-up or Clean-up Assistance-helper sets up or cleans up; patient completes activity. [place] assists only prior to or following the activity. 4-Supervision or Touching Assistance-helper provides verbal cues and/or touching/steadying and/or contact guard assistance as patient completes activity. Assistance may be provided throughout the activity or intermittently. 3-Partial/Moderate Assistance-helper does LESS THAN HALF the effort. [place] lifts, holds or supports trunk or limbs, but provides less than half the effort. 2-Substantial/Maximal Assistance-helper does MORE THAN HALF the effort. [place] lifts or holds trunk or limbs and provides more than half the effort. 2-Jqfarcxea-tlyvtp does ALL the effort. Patient does none of the effort to complete the activity. Or, the assistance of 2 or more helpers is required for the patient to complete the activity. If activity was not attempted, code reason: 7-Patient Refused. 9-Not Applicable-not attempted and the patient did not perform the activity before the current illness, exacerbation or injury. 10-Not Attempted due to Environmental Limitations-(lack of equipment, weather restraints, etc.). 88-Not Attempted due to Medical Conditions or Safety Concerns. Eating (QC): 6 On/Off Footwear: 4 Toileting Hygiene (QC): 6 Toilet Transfer (QC): 6 OT Short Term Goals Short Term Goals Time Frame: Feb 26, 2021 Toileting hygiene: 5 Lower body dressin Putting on/taking off footwear: 5 OT Supervisor Beater Room Goals Supervisor Beater Room Goals Time Frame: Mar 09, 2021 Eating (QC): 6 Oral Hygiene (QC): 6 Toileting Hygiene (QC): 6 Shower/Bathe Self (QC): 6 Upper Body Dressing (QC): 6 Lower Body Dressing (QC): 6 On/Off Footwear (QC): 6 Additional Goals: 1-Demonstrate ADL Tasks, 2-Verbalize Understanding, 3- ImproveStrength/Lara 1=Demonstrate adherence to instructed precautions during ADL tasks. 2=Patient will verbalize/demonstrate understanding of assistive d evices/modifications for ADL. 3=Patient will improve strength/tolerance for activity to enable patient to perform ADL's. OT Education/Plan Problem List/Assessment Assessment: Decreased Activ Tolerance, Impaired Self-Care Skills Discharge Recommendations Plan/Recommendations: Continue POC Treatment Plan/Plan of Care Patient would benefit from OT for education, treatment and training to promote independence in ADL's, mobility, safety and/or upper extremity function for ADL's. Plan of Care: ADL Retraining, Functional Mobility, Group Exercise/Act as Ind, UE Funct Exercise/Act Treatment Duration: Mar 09, 2021 Frequency: At least 5 of 7 days/Wk (IRF) Estimated Hrs Per Day: 1.5 hours per day Agreement: Yes Rehab Potential: Fair Time/GCodes Start Time: 07:15 Stop Time: 08:30 Total Time Billed (hr/min): 75 Billed Treatment Time 1 visit-ADL 5 (75 min) JOSE G RUIZ Feb 22, 2021 07:53
--- NOTE | 2021-02-22 08:14 | Progress Note - Ortho ---
Progress Note Subjective Date of Exam 02/22/21 Chief Complaint POD #7 IM Nailing of Left IT Femur Fx HPI/Events since last exam transferred to rehab unit, pain improving, mobility improving Review of Systems - Allergies: Coded Allergies: celecoxib (Unverified Allergy, Mild, RASH, 03/16/10) Penicillins (Unverified Allergy, Unknown, 01/05/14) Home Meds Reported Medications Biotin (Biotin) 1,000 Mcg Tablet, 1000 MCG PO DAILY, TAB 02/15/21 Calcium Carbonate/Mag Oxide/Zn ([place]-Viaxpgana-Ynqy Tablet) 1 Each Tablet, 1 EACH PO DAILY, TAB 02/15/21 Vit A,C & E/Lutein/Minerals (Ocuvite with Lutein Tablet) 1 Each Tablet, 1 EACH PO DAILY, TAB 02/15/21 Multivitamin (Multivitamin) 1 Each Tablet, 1 EACH PO DAILY, TAB 02/15/21 L.acidoph & Paracasei,B.lactis (Probiotic) 1 Each Capsule, 1 EACH PO DAILY, CAP 02/15/21 [place]worth-3/Dha/Epa/Fish Oil (Fish Oil 1,000 mg Softgel) 1 Each Capsule, 1 EACH PO DAILY, CAP 02/15/21 Cyanocobalamin (Vitamin B-12) (Vitamin B-12) 500 Mcg Tablet, 500 MCG PO DAILY, TAB 02/15/21 Cholecalciferol (Vitamin D3) (Vitamin D3) 25 Mcg Capsule, 25 MCG PO DAILY, CAP 02/15/21 Albuterol Sulfate (PROAIR HFA) 1 Puff Puff, 2 PUFF IH Q4H PRN for SHORTNESS OF BREATH, EA 02/15/21 Fluticasone/Vilanterol (Breo Ellipta 100-25 Mcg INH) 1 Each Blst.w.dev, 1 EACH IH DAILY 02/15/21 Escitalopram Oxalate (Escitalopram Oxalate) 10 Mg Tablet, 10 MG PO HS, TAB 02/15/21 Clopidogrel Bisulfate (Clopidogrel) 75 Mg Tablet, 75 MG PO HS, TAB 02/15/21 Discontinued Reported Medications Teriparatide (Forteo) 600 Mcg/2.4 Ml Syr, 20 MCG SQ DAILY 11/15/14 Escitalopram Oxalate (Lexapro) 5 Mg Tablet, 5 MG PO DAILY 11/15/14 Cholecalciferol (Vitamin D3) (Vitamin D) 2,000 Unit Capsule, 2000 UNIT PO DAILY 11/15/14 Folic Acid/Multivit-Min/Lutein (Multi-Vitamin Gummies) 1 Each Tab.chew, 1 TAB PO TID 11/15/14 Cyanocobalamin (Vitamin B12) 50 Mcg Tablet, 50 MCG PO DAILY, TAB 01/05/14 Calcium Carbonate/Vitamin D3 (Calcium 600 + D Caplet) 1 Each Tablet, 1 TAB PO BID 01/05/14 Vit C/Vit E/Lutein/Min/Acworth-3 (Ocuvite Softgel) 1 Each Capsule, 1 CAP PO DAILY, CAP 01/05/14 Biotin (Biotin) 2,500 Mcg Capsule, 5000 MCG PO DAILY, CAP 01/05/14 Acworth 3 Polyunsat Fatty Acids (Fish Oil) 1,000 Mg Cap, 1000 MG PO TID 07/09/11 Discontinued Scripts Tramadol HCl (Ultram) 50 Mg Tablet, 50 MG PO Q6H PRN for PAIN, #10 TAB Prov:BRIDGETTE DHILLON DRY ROOM OPERATOR 05/03/16 Atorvastatin Calcium (Lipitor) 10 Mg Tablet, 10 MG PO DAILY, #30 TAB 6 Refills Prov:JACOB MEIER MD 11/17/14 Clopidogrel Bisulfate (Clopidogrel) 75 Mg Tablet, 75 MG PO DAILY, #30 TAB 11 Refills Prov:JACOB MEIER MD 11/17/14 Objective Exam L Hip: No pain with passive motion, 4/5 abduction and flexion of hip, 5/5 adduction, + DF of ankle, no s/s of DVT Vital Signs Vital Signs Date Time Temp Pulse Resp B/P (MAP) Pulse Ox O2 Delivery O2 Flow Rate FiO2 02/22/21 07:20 36.4 79 18 113/58 (76) 94 Room Air 02/21/21 21:11 Room Air 02/21/21 20:18 37.6 86 94 21 02/21/21 19:49 37.6 86 18 116/58 (77) 94 Room Air 02/21/21 09:30 Room Air 02/21/21 08:17 98 Room Air Assessment and Plan Assessment L IT Femur Fx s/p IM Nailing Problem List L IT Femur Fx s/p IM Nailing Plan PT/OT DVT Prophylaxis Home when mobility/strength/independence improves Final Diagonsis L IT Femur Fx s/p IM Nailing Level of the visit: Level 3 (post op global) WINIFRED CHAUDHARY MD Feb 22, 2021 08:14
[2021-02-22] MEDS: MULTIVIT W/MINERALS TAB (THERAGRAN M) PO SCH (08:35)
[2021-02-22] MEDS: CLOPIDOGREL 75 MG (PLAVIX) TABLET PO SCH (08:35)
[2021-02-22] MEDS: LACTOBACILLUS ACIDOPHILUS (PROBIOTIC) CAPSULE PO SCH (08:36)
[2021-02-22] MEDS: VITAMIN D3 25 MCG (1,000 UNITS) TABLET PO SCH (08:36)
[2021-02-22] MEDS: CYANOCOBALAMIN 1,000 MCG (VITAMIN B-12) TABLET PO SCH (08:36)
[2021-02-22] MEDS: DOCUSATE SODIUM 100 MG (COLACE) CAP PO SCH ×3 (08:38→20:36)
[2021-02-22] MEDS: polyethylene glycoL POWDER 17 GM (MIRALAX) PACK PO SCH ×2 (08:39→20:34)
[2021-02-22] MEDS: SENNA W/DOCUSATE (SENOKOT S) TABLET PO SCH ×2 (08:39→20:34)
[2021-02-22] MEDS: SENNOSIDES 8.6 MG (SENOKOT) TAB PO SCH ×3 (08:40→20:37)
--- NOTE | 2021-02-22 09:50 | Speech Therapy Daily Note ---
Speech Daily Progress Note Subjective Date Seen by Provider: Feb 22, 2021 Time Seen by Provider: 08:30 The patient was seated upright in her recliner upon entrance to the room. The patient greeted the clinician and was agreeable to participation in the cognitive treatment session. Objective - Orientation: The patient is independently oriented to month, day of week, date, year, location, and city. - Functional Recall: The patient was able to independently recall prior therapy sessions and exercises. The patient participated in structured conversation and recall regarding her daily routine and schedule, discussing possible barriers that may be present in her home environment. The patient currently resides with her son, Carlo. 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 The patient stated she "doesn't do much" at home, other than having the responsibility of "walking the dog." "The dog and I are just kind of together all day." The patient also has a cat, Celestine, which belongs to her son. The patient reports her son is able to aid her in ADL's, if necessary, and does not identify specific barriers to a safe return home. *As the patient is driving, cognitive ability may be an important topic to discuss with her physician following discharge. At this time, the patient is verbally able to provide appropriate driving sequences and procedures however she has displayed fluctuating cognition throughout her stay (memory). Assessment Assessment Current Status: Good Progress Treatment Plan Continue Plan of Care Speech Short Term Goals Short Term Goals Short Term Goals 1. The patient will display increased accuracy (80%) with functional memory strategies, independently. 2. The patient will complete functional problem solving tasks with 80% accuracy, independently. Time Frame-STG: Two Weeks. Speech Senior Living Goals Housekeeper Child Care Goals 1. The patient will demonstrate improved cognitive linguistic function for increased independence and return to the least restrictive environment. Time Frame: Three weeks. Speech-Plan Treatment Plan Speech Therapy Treatment Plan: Continue Plan of Care Treatment Duration: Feb 19, 2021 Frequency: 4 times per week (Four to five times per week.) Estimated Hrs Per Day: .25 hour per day Rehab Potential: Fair Barriers to Learning: Fluctuations in cognitive ability (memory). Pt/Family Agrees to Plan: Yes Safety Risks/Education Teaching Recipient: Patient Teaching Methods: Discussion Response to Teaching: Verbalize Understanding Education Topics Provided: Plan of care, Goals of therapy Time Speech Therapy Time In: 08:30 Speech Therapy Time Out: 09:00 Total Billed Time: 30 Billed Treatment Time 1, GERMÁN LARA Feb 22, 2021 09:50
--- NOTE | 2021-02-22 10:15 | Physical Therapy Daily Note ---
PT Daily Note-Current Subjective Patient sitting in chair upon PT arrival, agreeable to treatment. Patient rates pain in left hip at 0/10 currently. Mental Status Patient Orientation: Person, Place, Time, Situation Transfers SCALE: Activities may be completed with or without assistive devices. 8-Zfalxpwwuf-agyktge completes the activity by him/herself with no assistance from a helper. 5-Set-up or Clean-up Assistance-helper sets up or cleans up; patient completes activity. [place] assists only prior to or following the activity. 4-Supervision or Touching Assistance-helper provides verbal cues and/or touching/steadying and/or contact guard assistance as patient completes activity. Assistance may be provided throughout the activity or intermittently. 3-Partial/Moderate Assistance-helper does LESS THAN HALF the effort. [place] lifts, holds or supports trunk or limbs, but provides less than half the effort. 2-Substantial/Maximal Assistance-helper does MORE THAN HALF the effort. [place] lifts or holds trunk or limbs and provides more than half the effort. 2-Lzgfxjvlu-uefyzk does ALL the effort. Patient does none of the effort to complete the activity. Or, the assistance of 2 or more helpers is required for the patient to complete the activity. If activity was not attempted, code reason: 7-Patient Refused. 9-Not Applicable-not attempted and the patient did not perform the activity before the current illness, exacerbation or injury. 10-Not Attempted due to Environmental Limitations-(lack of equipment, weather restraints, etc.). 88-Not Attempted due to Medical Conditions or Safety Concerns. Sit to Stand (QC): 4 Chair/Svl-kv-Wgjbx Xfer(QC): 4 Weight Bearing Left Lower Extremity: Left Weight Bearing/Tolerated Gait Training Does the Patient Walk?: Yes Distance: 150 feet x 2 Walk 10 feet (QC): 4 Walk 50 ft with 2 Turns(QC): 4 Walk 150 ft (QC): 4 Gait Assistive Device: FWW Exercises Supine Ex: Ankle pumps, Quad Set, Glut sets Supine Reps: 20 Seated Therapy Exercises: Hip flexion, Hamstring Curls, Hip abd/add Seated Reps: 20 Standing: Heel/toe raises, Marching Standing Reps: 10 NuStep Minutes: 10 NuStep Workload: 3 Assessment Current Status: Good Progress Patient tolerated treatment well. Patient performs LE therapeutic exercise as listed in the chair. Patient performs sit to stand and bed to chair with SBA. Demonstrates fair improvement in gait pattern, however requires sitting rest break at 150 feet. Patient performs standing exercise and Nu Step while in the therapy gym. Patient ambulates 150 feet with FWW with CGA x 2. Patient in chair post treatment with all needs met, nursing notified, call light in reach. PT Short Term Goals Short Term Goals Time Frame: Feb 26, 2021 Roll Left & Right: 6 Sit to lyin Lying to sitting on side of be: 4 Sit to stand: 5 Chair/zie-us-bylul transfer: 5 Walk 10 feet: 5 Walk 50 feet with two turns: 5 Walk 150 feet: 5 PT Bedspread Inspector Goals Bedspread Inspector Goals PT Bedspread Inspector Goals Time Frame: Mar 12, 2021 Roll Left & Right (QC): 6 Sit to Lying (QC): 6 Lying-Sitting on Side/Bed(QC): 6 Sit to Stand (QC): 6 Chair/Zkw-jj-Naupr Xfer(QC): 6 Toilet Transfer (QC): 6 Car Transfer (QC): 4 Does the Patient Walk: Yes Walk 10 feet (QC): 6 Walk 50ft with 2 Turns (QC): 6 Walk 150 ft (QC): 6 Walking 10ft on Uneven Surface: 6 1 Step (curb) (QC): 4 4 Steps (QC): 4 12 Steps (QC): 4 Picking up an Object (QC): 6 Wheel 50 feet with 2 turns (QC: 9 Wheel 150 feet: 9 PT Plan Treatment/Plan Treatment Plan: Continue Plan of Care Treatment Plan: Bed Mobility, Education, Functional Activity Lara, Functional Strength, Group Therapy, Gait, Safety, Therapeutic Exercise, Transfers Treatment Duration: Mar 12, 2021 Frequency: At least 5 of 7 days/Wk (IRF) Estimated Hrs Per Day: 1.5 hours per day Patient and/or Family Agrees t: Yes Safety Risks/Education Patient Education: Gait Training, Transfer Techniques Teaching Recipient: Patient Teaching Methods: Demonstration, Discussion Response to Teaching: Verbalize Understanding, Return Demonstration Time/GCodes Time In: 915 Time Out: 1015 Total Billed Treatment Time: 60 Total Billed Treatment Visit, Gait (2), Ex (2) ORTIZ CABRALES PT Feb 22, 2021 10:15
--- NOTE | 2021-02-22 10:24 | PM&R Progress Note ---
Subjective HPI/CC On Admission Date Seen by Provider: Feb 22, 2021 Time Seen by Provider: 12:45 Subjective/Events-last exam 02/22/2021: Pt doing well Urine is a bit cloudy so will increase fluid intake Bowels are moving May need to wean oxygen 02/21/2021: Pt doing about the same Hgb 10.9 Had a previous CVA so likely causes the confusion Pet pass is very thrilling for her Bowels moved a small amount but will maintain the laxatives for her 02/20/2021: Pt settling in well Wants a pet pass Bed alarm initiated due to impulsive behavior Cognitive decline noted- awaits SLUM score by speech therapy Potassium 3.5 will start a potassium pill Bowels moved on 02/17/21 so will give laxatives Review of Systems General: Fatigue, Malaise Musculoskeletal: leg pain Objective Exam Vital Signs Vital Signs Date Time Temp Pulse Resp B/P (MAP) Pulse Ox O2 Delivery O2 Flow Rate FiO2 02/22/21 21:08 Room Air 02/22/21 20:39 95 02/22/21 19:57 37.5 97 20 117/58 (77) 02/21/21 20:18 21 02/19/21 13:14 2.00 Capillary Refill : General Appearance: No Apparent Distress, WD/WN, Chronically ill, Thin HEENT: PERRL/EOMI, Normal ENT Inspection, Pharynx Normal Neck: Full Range of Motion, Normal Inspection, Non Tender, Supple, Carotid Bruit Respiratory: Chest Non Tender, Lungs Clear, Normal Breath Sounds, No Accessory Muscle Use, No Respiratory Distress Cardiovascular: Regular Rate, Rhythm, No Edema, No Gallop, No JVD, No Murmur, Normal Peripheral Pulses Gastrointestinal: Normal Bowel Sounds, No Organomegaly, No Pulsatile Mass, Non Tender, Soft Back: Normal Inspection, No CVA Tenderness, No Vertebral Tenderness Extremity: Normal Capillary Refill, Normal Inspection, Normal Range of Motion (Except left leg), Non Tender, No Calf Tenderness, No Pedal Edema Neurologic/Psychiatric: Alert, Oriented x3, No Motor/Sensory Deficits, Normal Mood/Affect, Abnormal Gait, Motor Weakness Skin: Normal Color, Warm/Dry Lymphatic: No Adenopathy Results/Procedures Lab Patient resulted labs reviewed. FIM Transfers Therapy Code Descriptions/Definitions Functional [place] Measure: 0=Not Assessed/NA 4=Minimal Assistance 1=Total Assistance 5=Supervision or Setup 2=Maximal Assistance 6=Modified [place] 3=Moderate Assistance 7=Complete IndependenceSCALE: Activities may be completed with or without assistive devices. 4-Kqbcyyuozp-nhfsihj completes the activity by him/herself with no assistance from a helper. 5-Set-up or Clean-up Assistance-helper sets up or cleans up; patient completes activity. [place] assists only prior to or following the activity. 4-Supervision or Touching Assistance-helper provides verbal cues and/or touching/steadying and/or contact guard assistance as patient completes activity. Assistance may be provided throughout the activity or intermittently. 3-Partial/Moderate Assistance-helper does LESS THAN HALF the effort. [place] lifts, holds or supports trunk or limbs, but provides less than half the effort. 2-Substantial/Maximal Assistance-helper does MORE THAN HALF the effort. [place] lifts or holds trunk or limbs and provides more than half the effort. 1-Iaorzancv-wojtlq does ALL the effort. Patient does none of the effort to complete the activity. Or, the assistance of 2 or more helpers is required for the patient to complete the activity. If activity was not attempted, code reason: 7-Patient Refused. 9-Not Applicable-not attempted and the patient did not perform the activity before the current illness, exacerbation or injury. 10-Not Attempted due to Environmental Limitations-(lack of equipment, weather restraints, etc.). 88-Not Attempted due to Medical Conditions or Safety Concerns. Roll Left to Right (QC): 4 Sit to Lying (QC): 4 Sit to Stand (QC): 4 Chair/Coc-ni-Wjjrx Xfer(QC): 4 Car Transfer (QC): 3 Gait Training Does the Patient Walk?: Yes Distance: 150 feet x 2 Walk 10 feet (QC): 4 Walk 50 ft with 2 Turns(QC): 4 Walk 150 ft (QC): 4 Walking 10ft/uneven surface-QC: 4 Gait Persons Needed: 1 Gait Assistive Device: FWW Wheelchair Training Wheel 50 ft with 2 turns (QC): 9 Wheel 150 ft (QC): 9 Stair Training Stair Training: Handrails/: 2 handrails #of Steps: 4 1 Step (curb) (QC): 4 4 Steps (QC): 4 12 Steps (QC): 88 Stairs: Pattern: Step to Balance Picking up an Object (QC): 4 (*access manager) ADL-Treatment Eating (QC): 6 Oral Hygiene (QC): 6 Bathing Location: L Arm, R Arm, L Upper Leg, R Upper Leg, Chest, Abdomen, Perineal Area Shower/Bathe Self (QC): 3 Upper Body Dressing (QC): 5 Lower Body Dressing (QC): 3 On/Off Footwear (QC): 4 Toileting Hygiene (QC): 6 Toilet Transfer (QC): 6 Assessment/Plan Assessment and Plan Assess & Plan/Chief Complaint Assessment: Status post left hip fracture Osteoporosis COPD Former smoker Postop constipation History of CVA Cognitive decline Plan: Inpatient rehab protocol Home meds Supportive care 02/20/2021: Monitor confusion Supportive care Laxatives 02/21/2021: Supportive care Pet Pass 02/22/2021: Supportive care Discharge Friday (1) Intertrochanteric fracture of left hip Status: Acute (2) History of stroke Status: Chronic MAGGIE ESCAMILLA DO Feb 22, 2021 10:24
[2021-02-22] MEDS: ENOXAPARIN 40 MG/0.4 ML (LOVENOX) SYR SC SCH (14:19)
--- NOTE | 2021-02-22 15:25 | Physical Therapy Daily Note ---
PT Daily Note-Current Subjective Patient sitting in chair upon PT arrival, agreeable to treatment. Rates pain at 0/10 currently. Mental Status Patient Orientation: Person, Place, Time, Situation Transfers SCALE: Activities may be completed with or without assistive devices. 3-Tennjjbakh-vekbiwn completes the activity by him/herself with no assistance from a helper. 5-Set-up or Clean-up Assistance-helper sets up or cleans up; patient completes activity. [place] assists only prior to or following the activity. 4-Supervision or Touching Assistance-helper provides verbal cues and/or touching/steadying and/or contact guard assistance as patient completes act ivity. Assistance may be provided throughout the activity or intermittently. 3-Partial/Moderate Assistance-helper does LESS THAN HALF the effort. [place] lifts, holds or supports trunk or limbs, but provides less than half the effort. 2-Substantial/Maximal Assistance-helper does MORE THAN HALF the effort. [place] lifts or holds trunk or limbs and provides more than half the effort. 6-Uwfgkmbif-pejtww does ALL the effort. Patient does none of the effort to complete the activity. Or, the assistance of 2 or more helpers is required for the patient to complete the activity. If activity was not attempted, code reason: 7-Patient Refused. 9-Not Applicable-not attempted and the patient did not perform the activity before the current illness, exacerbation or injury. 10-Not Attempted due to Environmental Limitations-(lack of equipment, weather restraints, etc.). 88-Not Attempted due to Medical Conditions or Safety Concerns. Sit to Stand (QC): 4 Chair/Las-bs-Uydyh Xfer(QC): 4 Weight Bearing Left Lower Extremity: Left Weight Bearing/Tolerated Gait Training Does the Patient Walk?: Yes Distance: 200 x 2 Walk 10 feet (QC): 4 Walk 50 ft with 2 Turns(QC): 4 Walk 150 ft (QC): 4 Gait Assistive Device: FWW Assessment Current Status: Good Progress Patient tolerated treatment well. Patient performs all observed transfers with SBA. Patient ambulates 200 feet, requires sitting rest break then 200 feet with FWW, with CGA and verbal cues for safety, progression, posture and conservation of energy. Patient in chair post treatment with daughter in the room, call light in room, all needs met. PT Short Term Goals Short Term Goals Time Frame: Feb 26, 2021 Roll Left & Right: 6 Sit to lyin Lying to sitting on side of be: 4 Sit to stand: 5 Chair/aph-ii-vdcpn transfer: 5 Walk 10 feet: 5 Walk 50 feet with two turns: 5 Walk 150 feet: 5 PT Grants Manager Goals Care Home Goals PT Grants Manager Goals Time Frame: Mar 12, 2021 Roll Left & Right (QC): 6 Sit to Lying (QC): 6 Lying-Sitting on Side/Bed(QC): 6 Sit to Stand (QC): 6 Chair/Yfs-vg-Acrrh Xfer(QC): 6 Toilet Transfer (QC): 6 Car Transfer (QC): 4 Does the Patient Walk: Yes Walk 10 feet (QC): 6 Walk 50ft with 2 Turns (QC): 6 Walk 150 ft (QC): 6 Walking 10ft on Uneven Surface: 6 1 Step (curb) (QC): 4 4 Steps (QC): 4 12 Steps (QC): 4 Picking up an Object (QC): 6 Wheel 50 feet with 2 turns (QC: 9 Wheel 150 feet: 9 PT Plan Treatment/Plan Treatment Plan: Continue Plan of Care Treatment Plan: Bed Mobility, Education, Functional Activity Lara, Functional Strength, Group Therapy, Gait, Safety, Therapeutic Exercise, Transfers Treatment Duration: Mar 12, 2021 Frequency: At least 5 of 7 days/Wk (IRF) Estimated Hrs Per Day: 1.5 hours per day Patient and/or Family Agrees t: Yes Safety Risks/Education Patient Education: Gait Training Teaching Recipient: Patient Teaching Methods: Demonstration, Discussion Response to Teaching: Verbalize Understanding, Return Demonstration Time/GCodes Time In: 1345 Time Out: 1400 Total Billed Treatment Time: 15 Total Billed Treatment Visit, ORTIZ Carrillo PT Feb 22, 2021 15:25
[2021-02-22 19:57] VITALS: BP 117/58
[2021-02-23] MEDS: KCL 10 MEQ TAB (MICRO K) PO SCH (06:36)
[2021-02-23 07:30] VITALS: BP 106/58
[2021-02-23] MEDS: LACTOBACILLUS ACIDOPHILUS (PROBIOTIC) CAPSULE PO SCH (08:15)
[2021-02-23] MEDS: VITAMIN D3 25 MCG (1,000 UNITS) TABLET PO SCH (08:15)
[2021-02-23] MEDS: CYANOCOBALAMIN 1,000 MCG (VITAMIN B-12) TABLET PO SCH (08:16)
[2021-02-23] MEDS: MULTIVIT W/MINERALS TAB (THERAGRAN M) PO SCH (08:16)
[2021-02-23] MEDS: CLOPIDOGREL 75 MG (PLAVIX) TABLET PO SCH (08:16)
[2021-02-23] MEDS: SENNA W/DOCUSATE (SENOKOT S) TABLET PO SCH ×2 (08:18→20:38)
[2021-02-23] MEDS: DOCUSATE SODIUM 100 MG (COLACE) CAP PO SCH ×2 (08:18→20:37)
--- NOTE | 2021-02-23 09:42 | Speech Therapy Daily Note ---
Speech Daily Progress Note Subjective Date Seen by Provider: Feb 23, 2021 Time Seen by Provider: 08:25 The patient was seated upright in her recliner upon entrance to the room. The patient greeted the clinician appropriately and was agreeable to participation in the cognitive linguistic treatment session. The patient rates her pain at a 0/10. Objective - Orientation: The patient was independently oriented to self, location, city, month, day of week, date, and year. - Hip Precautions: The patient is not able to independently recall hip precautions verbally. Hip precautions were reviewed and demonstrated by the clinician and a printed handout was provided to the patient. * To note, the patient displayed appropriate recall to use her call light for assistance to the restroom and to use her call light once she was finished in the restroom for safe return to her recliner. Assessment Assessment Current Status: Excellent Progress Treatment Plan Continue Plan of Care Speech Short Term Goals Short Term Goals Short Term Goals 1. The patient will display increased accuracy (80%) with functional memory strategies, independently. 2. The patient will complete functional problem solving tasks with 80% accuracy, independently. Time Frame-STG: Two Weeks. Speech Nursing Home Goals Nursing Home Goals 1. The patient will demonstrate improved cognitive linguistic function for increased independence and return to the least restrictive environment. Time Frame: Three weeks. Speech-Plan Treatment Plan Speech Therapy Treatment Plan: Continue Plan of Care Treatment Duration: Feb 19, 2021 Frequency: 4 times per week (Four to five times per week.) Estimated Hrs Per Day: .25 hour per day Rehab Potential: Fair Pt/Family Agrees to Plan: Yes Safety Risks/Education Teaching Recipient: Patient Teaching Methods: Demonstration, Handout, Discussion Response to Teaching: Verbalize Understanding, Return Demonstration, Reinforcement Needed Education Topics Provided: Hip Precautions Time Speech Therapy Time In: 08:25 Speech Therapy Time Out: 08:55 Total Billed Time: 30 Billed Treatment Time 1ABIMBOLARAPHAEL Charu SERNAGERMÁN ST Feb 23, 2021 09:42
[2021-02-23] MEDS: RT--FLUTICASONE/SALMETEROL 113-14 (AIRDUO RespiCLICK) IH SCH ×2 (10:10→10:16)
--- NOTE | 2021-02-23 10:14 | Occupational Ther Daily Note ---
OT Current Status-Daily Note Subjective Pt alert, sitting in recliner. Pt agrees to therapy. No c/o pain. Mental Status/Objective Patient Orientation: Person, Place, Time, Situation ADL-Treatment 1 session([id number]): Pt agrees to shower. SBA and verbal cues for which clothes to get, pt able to gather clothing from closet using FWW. Pt transported clothing using FWW to bathroom. CGA for shower transfers. Pt comp leted shower, standing 70% of the time then sitting to complete legs and feet using shower bench and LH sponge. Upper body drsg by self, SBA due to VC while gathering clothing. Verbal cues to use forestry crew chief to thread feet then able to hike over hips by self. Pt able to doff/don R sock by self, verbal cues to use drsg stick to doff and sock aide to don L sock. Pt independent with toileting and oral care. After therapy, pt left in care of PT. All needs met. Therapy Code Descriptions/Definitions Functional [place] Measure: 0=Not Assessed/NA 4=Minimal Assistance 1=Total Assistance 5=Supervision or Setup 2=Maximal Assistance 6=Modified [place] 3=Moderate Assistance 7=Complete IndependenceSCALE: Activities may be completed with or without assistive devices. 2-Vijjdmejvg-dlteezg completes the activity by him/herself with no assistance from a helper. 5-Set-up or Clean-up Assistance-helper sets up or cleans up; patient completes activity. [place] assists only prior to or following the activity. 4-Supervision or Touching Assistance-helper provides verbal cues and/or touching/steadying and/or contact guard assistance as patient completes activity. Assistance may be provided throughout the activity or intermittently. 3-Partial/Moderate Assistance-helper does LESS THAN HALF the effort. [place] lifts, holds or supports trunk or limbs, but provides less than half the effort. 2-Substantial/Maximal Assistance-helper does MORE THAN HALF the effort. [place] lifts or holds trunk or limbs and provides more than half the effort. 8-Rxqfrkxar-vxecff does ALL the effort. Patient does none of the effort to complete the activity. Or, the assistance of 2 or more helpers is required for the patient to complete the activity. If activity was not attempted, code reason: 7-Patient Refused. 9-Not Applicable-not attempted and the patient did not perform the activity before the current illness, exacerbation or injury. 10-Not Attempted due to Environmental Limitations-(lack of equipment, weather restraints, etc.). 88-Not Attempted due to Medical Conditions or Safety Concerns. Eating (QC): 6 (Per clinical judgment.) Oral Hygiene (QC): 6 Shower/Bathe Self (QC): 4 (Supervision for safety.) Upper Body Dressing (QC): 4 Lower Body Dressing (QC): 4 On/Off Footwear: 4 Toileting Hygiene (QC): 6 Toilet Transfer (QC): 6 Other Treatment 2nd session([id number]): Pt ambulated to central bathing room to work on tub bench transfers. Pt required assistance to lift L LE in/out and moderate verbal cues to complete task. Pt has tub shower in her bathroom and pt's son, who also lives there, has a walk-in shower which pt can use. Pt will need further practice to become proficient at tub bench transfer. After session, pt sitting in recliner with call light/phone in reach. All needs met in room. OT Short Term Goals Short Term Goals Time Frame: Feb 26, 2021 Toileting hygiene: 5 Lower body dressin Putting on/taking off footwear: 5 OT Detention Goals Detention Goals Time Frame: Mar 09, 2021 Eating (QC): 6 Oral Hygiene (QC): 6 Toileting Hygiene (QC): 6 Shower/Bathe Self (QC): 6 Upper Body Dressing (QC): 6 Lower Body Dressing (QC): 6 On/Off Footwear (QC): 6 Additional Goals: 1-Demonstrate ADL Tasks, 2-Verbalize Understanding, 3- ImproveStrength/Lara 1=Demonstrate adherence to instructed precautions during ADL tasks. 2=Patient will verbalize/demonstrate understanding of assistive devices/modifications for ADL. 3=Patient will improve strength/tolerance for activity to enable patient to perform ADL's. OT Education/Plan Problem List/Assessment Assessment: Decreased Activ Tolerance, Decreased Safety Aware, Impaired Cognition, Impaired Self-Care Skills Discharge Recommendations Plan/Recommendations: Continue POC Treatment Plan/Plan of Care Patient would benefit from OT for education, treatment and training to promote independence in ADL's, mobility, safety and/or upper extremity function for ADL's. Plan of Care: ADL Retraining, Functional Mobility, Group Exercise/Act as Ind, UE Funct Exercise/Act Treatment Duration: Mar 09, 2021 Frequency: At least 5 of 7 days/Wk (IRF) Estimated Hrs Per Day: 1.5 hours per day Agreement: Yes Rehab Potential: Fair Time/GCodes Start Time: 09:00 (1136) Stop Time: 10:00 (1155) Total Time Billed (hr/min): 79 Billed Treatment Time 1 visit([id number])-ADL 4 (60 min) 1 visit-([id number]) FA 1 (19 min) JOSE G RUIZ Feb 23, 2021 10:14
--- NOTE | 2021-02-23 10:28 | PM&R Progress Note ---
Subjective HPI/CC On Admission Date Seen by Provider: Feb 23, 2021 Time Seen by Provider: 12:30 Subjective/Events-last exam 02/23/2021: Patient in a good mood Took a shower today [place] good on incision Weaned off oxygen Bowels moving 02/22/2021: Pt doing well Urine is a bit cloudy so will increase fluid intake Bowels are moving May need to wean oxygen 02/21/2021: Pt doing about the same Hgb 10.9 Had a previous CVA so likely causes the confusion Pet pass is very thrilling for her Bowels moved a small amount but will maintain the laxatives for her 02/20/2021: Pt settling in well Wants a pet pass Bed alarm initiated due to impulsive behavior Cognitive decline noted- awaits SLUM score by speech therapy Potassium 3.5 will start a potassium pill Bowels moved on 02/17/21 so will give laxatives Review of Systems General: Fatigue, Malaise Objective Exam Vital Signs Vital Signs Date Time Temp Pulse Resp B/P (MAP) Pulse Ox O2 Delivery O2 Flow Rate FiO2 02/23/21 10:17 95 Room Air 02/23/21 07:30 37.0 82 18 106/58 (74) 02/21/21 20:18 21 02/19/21 13:14 2.00 Capillary Refill : General Appearance: No Apparent Distress, WD/WN, Chronically ill, Thin HEENT: PERRL/EOMI, Normal ENT Inspection, Pharynx Normal Neck: Full Range of Motion, Normal Inspection, Non Tender, Supple, Carotid Bruit Respiratory: Chest Non Tender, Lungs Clear, Normal Breath Sounds, No Accessory Muscle Use, No Respiratory Distress Cardiovascular: Regular Rate, Rhythm, No Edema, No Gallop, No JVD, No Murmur, Normal Peripheral Pulses Gastrointestinal: Normal Bowel Sounds, No Organomegaly, No Pulsatile Mass, Non Tender, Soft Back: Normal Inspection, No CVA Tenderness, No Vertebral Tenderness Extremity: Normal Capillary Refill, Normal Inspection, Normal Range of Motion (Except left leg), Non Tender, No Calf Tenderness, No Pedal Edema Neurologic/Psychiatric: Alert, Oriented x3, No Motor/Sensory Deficits, Normal Mood/Affect, Abnormal Gait, Motor Weakness Skin: Normal Color, Warm/Dry Lymphatic: No Adenopathy Results/Procedures Lab Patient resulted labs reviewed. FIM Transfers Therapy Code Descriptions/Definitions Functional [place] Measure: 0=Not Assessed/NA 4=Minimal Assistance 1=Total Assistance 5=Supervision or Setup 2=Maximal Assistance 6=Modified [place] 3=Moderate Assistance 7=Complete IndependenceSCALE: Activities may be completed with or without assistive devices. 3-Vyrvcgusqj-pldavcn completes the activity by him/herself with no assistance from a helper. 5-Set-up or Clean-up Assistance-helper sets up or cleans up; patient completes activity. [place] assists only prior to or following the activity. 4-Supervision or Touching Assistance-helper provides verbal cues and/or touching/steadying and/or contact guard assistance as patient completes activity. Assistance may be provided throughout the activity or intermittently. 3-Partial/Moderate Assistance-helper does LESS THAN HALF the effort. [place] lifts, holds or supports trunk or limbs, but provides less than half the effort. 2-Substantial/Maximal Assistance-helper does MORE THAN HALF the effort. [place] l ifts or holds trunk or limbs and provides more than half the effort. 2-Jumpcvglu-epfdwd does ALL the effort. Patient does none of the effort to complete the activity. Or, the assistance of 2 or more helpers is required for the patient to complete the activity. If activity was not attempted, code reason: 7-Patient Refused. 9-Not Applicable-not attempted and the patient did not perform the activity before the current illness, exacerbation or injury. 10-Not Attempted due to Environmental Limitations-(lack of equipment, weather restraints, etc.). 88-Not Attempted due to Medical Conditions or Safety Concerns. Roll Left to Right (QC): 4 Sit to Lying (QC): 4 Sit to Stand (QC): 4 Chair/Uwe-fl-Mybpa Xfer(QC): 4 Car Transfer (QC): 3 Gait Training Does the Patient Walk?: Yes Distance: 200 x 2 Walk 10 feet (QC): 4 Walk 50 ft with 2 Turns(QC): 4 Walk 150 ft (QC): 4 Walking 10ft/uneven surface-QC: 4 Gait Persons Needed: 1 Gait Assistive Device: FWW Wheelchair Training Wheel 50 ft with 2 turns (QC): 9 Wheel 150 ft (QC): 9 Stair Training Stair Training: Handrails/: 2 handrails #of Steps: 4 1 Step (curb) (QC): 4 4 Steps (QC): 4 12 Steps (QC): 88 Stairs: Pattern: Step to Balance Picking up an Object (QC): 4 (*purse maker) ADL-Treatment Eating (QC): 6 (Per clinical judgment.) Oral Hygiene (QC): 6 Bathing Location: L Arm, R Arm, L Upper Leg, R Upper Leg, Chest, Abdomen, Perineal Area Shower/Bathe Self (QC): 4 (Supervision for safety.) Upper Body Dressing (QC): 4 Lower Body Dressing (QC): 4 On/Off Footwear (QC): 4 Toileting Hygiene (QC): 6 Toilet Transfer (QC): 6 Assessment/Plan Assessment and Plan Assess & Plan/Chief Complaint Assessment: Status post left hip fracture Osteoporosis COPD Former smoker Postop constipation History of CVA Cognitive decline Plan: Inpatient rehab protocol Home meds Supportive care 02/20/2021: Monitor confusion Supportive care Laxatives 02/21/2021: Supportive care Pet Pass 02/22/2021: Supportive care Discharge Friday02/23/2021: Supportive care Discharge on Friday (1) Intertrochanteric fracture of left hip Status: Acute (2) History of stroke Status: Chronic MAGGIE ESCAMILLA DO Feb 23, 2021 10:28
[2021-02-23] MEDS: polyethylene glycoL POWDER 17 GM (MIRALAX) PACK PO SCH ×2 (10:39→20:38)
[2021-02-23] MEDS: SENNOSIDES 8.6 MG (SENOKOT) TAB PO SCH ×2 (10:39→20:38)
--- NOTE | 2021-02-23 11:21 | Physical Therapy Daily Note ---
PT Daily Note-Current Subjective Patient in the BR, finishing treatment with OT upon PT arrival. Agreeable to treatment. Mental Status Patient Orientation: Person, Place Transfers SCALE: Activities may be completed with or without assistive devices. 9-Vgvpyqejyf-tqchdst completes the activity by him/herself with no assistance from a helper. 5-Set-up or Clean-up Assistance-helper sets up or cleans up; patient completes activity. [place] assists only prior to or following the activity. 4-Supervision or Touching Assistance-helper provides verbal cues and/or touching/steadying and/or contact guard assistance as patient completes activity. Assistance may be provided throughout the activity or intermittently. 3-Partial/Moderate Assistance-helper does LESS THAN HALF the effort. [place] lifts, holds or supports trunk or limbs, but provides less than half the effort. 2-Substantial/Maximal Assistance-helper does MORE THAN HALF the effort. [place] lifts or holds trunk or limbs and provides more than half the effort. 0-Xtbbgrgik-bjfpvg does ALL the effort. Patient does none of the effort to complete the activity. Or, the assistance of 2 or more helpers is required for the patient to complete the activity. If activity was not attempted, code reason: 7-Patient Refused. 9-Not Applicable-not attempted and the patient did not perform the activity before the current illness, exacerbation or injury. 10-Not Attempted due to Environmental Limitations-(lack of equipment, weather restraints, etc.). 88-Not Attempted due to Medical Conditions or Safety Concerns. Roll Left & Right (QC): 5 Sit to Lying (QC): 3 Lying to Sitting/Side of Bed(Q: 3 Sit to Stand (QC): 4 Chair/Dpi-md-Eflpi Xfer(QC): 5 Toilet Transfer (QC): 5 Car Transfer (QC): 4 Weight Bearing Left Lower Extremity: Left Weight Bearing/Tolerated Gait Training Does the Patient Walk?: Yes Distance: 150 feet Walk 10 feet (QC): 4 Walk 50 ft with 2 Turns(QC): 4 Walk 150 ft (QC): 4 Walking 10ft/uneven surface-QC: 4 Gait Persons Needed: 1 Gait Assistive Device: FWW Wheelchair Training Does the Pt Use a Wheelchair?: No Wheel 50 ft with 2 turns (QC): 88 Wheel 150 ft (QC): 88 Stair Training Stair Training: Handrails/: 2 handrails #of Steps: 12 1 Step (curb) (QC): 4 4 Steps (QC): 4 12 Steps (QC): 4 Stairs: Pattern: Step to CGA throughout with verbal cues frequently. 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 Continues to demonstrate difficulty moving LEs into/out of the bed and car. Patients family reports her bed at home is 29 inches high, and is a standard bed. Patient reports she has a step stool at home, but her description is more like a small step ladder that most likely would not be safe to use by herself. Patient practiced bed transfers and bed mobility using the departments 8 inch step with handle. Using this step, patient was able to perform bed to/from chair with CGA, however sitting to supine still requires Min A for left LE. Discussed with the patient the benefit of having a 5-8 inch step with built in handle to make getting into and out of bed easier and safer for her. Also discussed the possibility of removing the box springs in her bed to make it lower so that she is able to transfer to her bed safely and without a step. Patient verbalizes understanding, but seems to be fixated on using the step ladder for bed transfers. Patient ambulates 150 feet x 2 with FWW, with SBA and verbal cues for posture, progression, balance. Patient performs LE therapeutic exercise as listed above while sitting in the chair. Patient in chair post treatment with all needs met, nursing notified, call light in reach. Education will need to bed given to family as a safe step for the bed transfers will need to be in place prior to D/C to ensure patient safety. PT Short Term Goals Short Term Goals Time Frame: Feb 26, 2021 Roll Left & Right: 6 Sit to lyin Lying to sitting on side of be: 4 Sit to stand: 5 Chair/itd-nh-caybx transfer: 5 Walk 10 feet: 5 Walk 50 feet with two turns: 5 Walk 150 feet: 5 PT Vehicle And Equipment Cleaner Goals Vehicle And Equipment Cleaner Goals PT Skilled Nursing Goals Time Frame: Mar 12, 2021 Roll Left & Right (QC): 6 Sit to Lying (QC): 6 Lying-Sitting on Side/Bed(QC): 6 Sit to Stand (QC): 6 Chair/Bhc-wj-Wzmbw Xfer(QC): 6 Toilet Transfer (QC): 6 Car Transfer (QC): 4 (MET) Does the Patient Walk: Yes Walk 10 feet (QC): 6 Walk 50ft with 2 Turns (QC): 6 Walk 150 ft (QC): 6 Walking 10ft on Uneven Surface: 6 1 Step (curb) (QC): 4 4 Steps (QC): 4 12 Steps (QC): 4 Picking up an Object (QC): 6 Wheel 50 feet with 2 turns (QC: 9 Wheel 150 feet: 9 PT Plan Treatment/Plan Treatment Plan: Continue Plan of Care Treatment Plan: Bed Mobility, Education, Functional Activity Lara, Functional Strength, Group Therapy, Gait, Safety, Therapeutic Exercise, Transfers Treatment Duration: Mar 12, 2021 Frequency: At least 5 of 7 days/Wk (IRF) Estimated Hrs Per Day: 1.5 hours per day Patient and/or Family Agrees t: Yes Safety Risks/Education Patient Education: Gait Training, Transfer Techniques, Steps, Reviewed Precautions, Safety Issues Teaching Recipient: Patient Teaching Methods: Demonstration, Discussion Response to Teaching: Verbalize Understanding, Reinforcement Needed Time/GCodes Time In: 1000 Time Out: 1115 Total Billed Treatment Time: 75 Total Billed Treatment Visit, Gait, FA (2), Ex (2) ORTIZ CABRALES PT Feb 23, 2021 11:21
[2021-02-23] MEDS: ENOXAPARIN 40 MG/0.4 ML (LOVENOX) SYR SC SCH (15:32)
[2021-02-23 19:53] VITALS: BP 109/53
--- NOTE | 2021-02-24 05:51 | PM&R Progress Note ---
Subjective HPI/CC On Admission Date Seen by Provider: Feb 24, 2021 Time Seen by Provider: 12:15 Subjective/Events-last exam 02/24/2021: Patient doing really well Eating much better Check meds labs 02/23/2021: Patient in a good mood Took a shower today [place] good on incision Weaned off oxygen Bowels moving 02/22/2021: Pt doing well Urine is a bit cloudy so will increase fluid intake Bowels are moving May need to wean oxygen 02/21/2021: Pt doing about the same Hgb 10.9 Had a previous CVA so likely causes the confusion Pet pass is very thrilling for her Bowels moved a small amount but will maintain the laxatives for her 02/20/2021: Pt settling in well Wants a pet pass Bed alarm initiated due to impulsive behavior Cognitive decline noted- awaits SLUM score by speech therapy Potassium 3.5 will start a potassium pill Bowels moved on 02/17/21 so will give laxatives Review of Systems Musculoskeletal: leg pain Objective Exam Vital Signs Vital Signs Date Time Temp Pulse Resp B/P (MAP) Pulse Ox O2 Delivery O2 Flow Rate FiO2 02/24/21 10:10 97 Room Air 02/24/21 10:10 36.6 79 02/24/21 08:25 16 105/54 (71) 02/21/21 20:18 21 02/19/21 13:14 2.00 Capillary Refill : General Appearance: No Apparent Distress, WD/WN, Chronically ill, Thin HEENT: PERRL/EOMI, Normal ENT Inspection, Pharynx Normal Neck: Full Range of Motion, Normal Inspection, Non Tender, Supple, Carotid Bruit Respiratory: Chest Non Tender, Lungs Clear, Normal Breath Sounds, No Accessory Muscle Use, No Respiratory Distress Cardiovascular: Regular Rate, Rhythm, No Edema, No Gallop, No JVD, No Murmur, Normal Peripheral Pulses Gastrointestinal: Normal Bowel Sounds, No Organomegaly, No Pulsatile Mass, Non Tender, Soft Back: Normal Inspection, No CVA Tenderness, No Vertebral Tenderness Extremity: Normal Capillary Refill, Normal Inspection, Normal Range of Motion (Except left leg), Non Tender, No Calf Tenderness, No Pedal Edema Neurologic/Psychiatric: Alert, Oriented x3, No Motor/Sensory Deficits, Normal Mood/Affect, Abnormal Gait, Motor Weakness Skin: Normal Color, Warm/Dry Lymphatic: No Adenopathy Results/Procedures Lab Patient resulted labs reviewed. FIM Transfers Therapy Code Descriptions/Definitions Functional [place] Measure: 0=Not Assessed/NA 4=Minimal Assistance 1=Total Assistance 5=Supervision or Setup 2=Maximal Assistance 6=Modified [place] 3=Moderate Assistance 7=Complete IndependenceSCALE: Activities may be completed with or without assistive devices. 5-Clzougdgmr-aqzsgkz completes the activity by him/herself with no assistance from a helper. 5-Set-up or Clean-up Assistance-helper sets up or cleans up; patient completes activity. [place] assists only prior to or following the activity. 4-Supervision or Touching Assistance-helper provides verbal cues and/or touching/steadying and/or contact guard assistance as patient completes activity. Assistance may be provided throughout the activity or intermittently. 3-Partial/Moderate Assistance-helper does LESS THAN HALF the effort. [place] lifts, holds or supports trunk or limbs, but provides less than half the effort. 2-Substantial/Maximal Assistance-helper does MORE THAN HALF the effort. [place] lifts or holds trunk or limbs and provides more than half the effort. 2-Tkumfgxti-uifntt does ALL the effort. Patient does none of the effort to complete the activity. Or, the assistance of 2 or more helpers is required for the patient to complete the activity. If activity was not attempted, code reason: 7-Patient Refused. 9-Not Applicable-not attempted and the patient did not perform the activity before the current illness, exacerbation or injury. 10-Not Attempted due to Environmental Limitations-(lack of equipment, weather restraints, etc.). 88-Not Attempted due to Medical Conditions or Safety Concerns. Roll Left to Right (QC): 5 Sit to Lying (QC): 3 Sit to Stand (QC): 4 Chair/Otm-mn-Dkjar Xfer(QC): 5 Car Transfer (QC): 4 Gait Training Does the Patient Walk?: Yes Distance: 150 feet Walk 10 feet (QC): 4 Walk 50 ft with 2 Turns(QC): 4 Walk 150 ft (QC): 4 Walking 10ft/uneven surface-QC: 4 Gait Persons Needed: 1 Gait Assistive Device: FWW Wheelchair Training Does the Pt Use a Wheelchair?: No Wheel 50 ft with 2 turns (QC): 88 Wheel 150 ft (QC): 88 Stair Training Stair Training: Handrails/: 2 handrails #of Steps: 12 1 Step (curb) (QC): 4 4 Steps (QC): 4 12 Steps (QC): 4 Stairs: Pattern: Step to Balance Picking up an Object (QC): 6 ADL-Treatment Eating (QC): 6 (Per clinical judgment.) Oral Hygiene (QC): 6 Bathing Location: L Arm, R Arm, L Upper Leg, R Upper Leg, Chest, Abdomen, Perineal Area Shower/Bathe Self (QC): 4 (Supervision for safety.) Upper Body Dressing (QC): 4 Lower Body Dressing (QC): 4 On/Off Footwear (QC): 4 Toileting Hygiene (QC): 6 Toilet Transfer (QC): 6 Assessment/Plan Assessment and Plan Assess & Plan/Chief Complaint Assessment: Status post left hip fracture Osteoporosis COPD Former smoker Postop constipation History of CVA Cognitive decline Plan: Inpatient rehab protocol Home meds Supportive care 02/20/2021: Monitor confusion Supportive care Laxatives 02/21/2021: Supportive care Pet Pass 02/22/2021: Supportive care Discharge Friday02/23/2021: Supportive care Discharge on Friday02/24/2021: Supportive care Discharge next week (1) Intertrochanteric fracture of left hip Status: Acute (2) History of stroke Status: Chronic MAGGIE ESCAMILLA DO Feb 24, 2021 05:51
[2021-02-24] MEDS: KCL 10 MEQ TAB (MICRO K) PO SCH (06:47)
[2021-02-24] MEDS: VITAMIN D3 25 MCG (1,000 UNITS) TABLET PO SCH (08:03)
[2021-02-24] MEDS: MULTIVIT W/MINERALS TAB (THERAGRAN M) PO SCH (08:03)
[2021-02-24] MEDS: CLOPIDOGREL 75 MG (PLAVIX) TABLET PO SCH (08:03)
[2021-02-24] MEDS: CYANOCOBALAMIN 1,000 MCG (VITAMIN B-12) TABLET PO SCH (08:03)
[2021-02-24] MEDS: LACTOBACILLUS ACIDOPHILUS (PROBIOTIC) CAPSULE PO SCH (08:03)
[2021-02-24 08:25] VITALS: BP 105/54
[2021-02-24] MEDS: SENNOSIDES 8.6 MG (SENOKOT) TAB PO SCH ×2 (09:16→20:56)
[2021-02-24] MEDS: SENNA W/DOCUSATE (SENOKOT S) TABLET PO SCH ×2 (09:16→20:56)
[2021-02-24] MEDS: polyethylene glycoL POWDER 17 GM (MIRALAX) PACK PO SCH ×2 (09:16→20:09)
[2021-02-24] MEDS: DOCUSATE SODIUM 100 MG (COLACE) CAP PO SCH ×2 (09:16→20:56)
[2021-02-24 10:10] VITALS: BP 105/54
[2021-02-24] MEDS: RT--FLUTICASONE/SALMETEROL 113-14 (AIRDUO RespiCLICK) IH SCH (10:10)
--- NOTE | 2021-02-24 10:33 | Physical Therapy Daily Note ---
PT Daily Note-Current Subjective Pt. states her bed is 29 in off the floor and she may sleep on her couch in the living room. We then discussed heights and precautions etc. Pain Numeric Pain Scale: 3 Location: Left Location Body Site: Hip Pain Description: Ache Mental Status Patient Orientation: Person, Place, Situation Transfers SCALE: Activities may be completed with or without assistive devices. 9-Jtqhbtjvho-qajspmx completes the activity by him/herself with no assistance from a helper. 5-Set-up or Clean-up Assistance-helper sets up or cleans up; patient completes activity. [place] assists only prior to or following the activity. 4-Supervision or Touching Assistance-helper provides verbal cues and/or touching/steadying and/or contact guard assistance as patient completes activity. Assistance may be provided throughout the activity or intermittently. 3-Partial/Moderate Assistance-helper does LESS THAN HALF the effort. [place] lifts, holds or supports trunk or limbs, but provides less than half the effort. 2-Substantial/Maximal Assistance-helper does MORE THAN HALF the effort. [place] lifts or holds trunk or limbs and provides more than half the effort. 7-Ypszcriue-kzcoes does ALL the effort. Patient does none of the effort to complete the activity. Or, the assistance of 2 or more helpers is required for the patient to complete the activity. If activity was not attempted, code reason: 7-Patient Refused. 9-Not Applicable-not attempted and the patient did not perform the activity before the current illness, exacerbation or injury. 10-Not Attempted due to Environmental Limitations-(lack of equipment, weather restraints, etc.). 88-Not Attempted due to Medical Conditions or Safety Concerns. much emphasis on TRFs in out bed from 29 in height with instructions only Weight Bearing Left Lower Extremity: Left Weight Bearing/Tolerated Gait Training Does the Patient Walk?: Yes Gait Assistive Device: FWW 200ft SBA , good use of AD Exercises Supine Ex: Ankle pumps, Quad Set, Heel Slides, Short Arc Quads, Scooting, Straight leg raise (assisted), Hip abd/add Supine Reps: 12 Treatments up in recliner after Rx, call sams at hand Assessment Current Status: Good Progress PT Short Term Goals Short Term Goals Time Frame: Feb 26, 2021 Roll Left & Right: 6 Sit to lyin Lying to sitting on side of be: 4 Sit to stand: 5 Chair/hmz-nf-uovuh transfer: 5 Walk 10 feet: 5 Walk 50 feet with two turns: 5 Walk 150 feet: 5 PT Senior Living Goals Senior Living Goals PT Fire Patrol Goals Time Frame: Mar 12, 2021 Roll Left & Right (QC): 6 Sit to Lying (QC): 6 Lying-Sitting on Side/Bed(QC): 6 Sit to Stand (QC): 6 Chair/Tbz-sh-Iotut Xfer(QC): 6 Toilet Transfer (QC): 6 Car Transfer (QC): 4 (MET) Does the Patient Walk: Yes Walk 10 feet (QC): 6 Walk 50ft with 2 Turns (QC): 6 Walk 150 ft (QC): 6 Walking 10ft on Uneven Surface: 6 1 Step (curb) (QC): 4 4 Steps (QC): 4 12 Steps (QC): 4 Picking up an Object (QC): 6 Wheel 50 feet with 2 turns (QC: 9 Wheel 150 feet: 9 PT Plan Treatment/Plan Treatment Plan: Continue Plan of Care Treatment Plan: Bed Mobility, Education, Functional Activity Lara, Functional Strength, Group Therapy, Gait, Safety, Therapeutic Exercise, Transfers Treatment Duration: Mar 12, 2021 Frequency: At least 5 of 7 days/Wk (IRF) Estimated Hrs Per Day: 1.5 hours per day Patient and/or Family Agrees t: Yes Safety Risks/Education Patient Education: Gait Training, Transfer Techniques, Reviewed Precautions, Co rrect Positioning, Disease Process, Safety Issues Teaching Recipient: Patient Teaching Methods: Demonstration, Discussion Response to Teaching: Verbalize Understanding, Return Demonstration, Reinforcement Needed Time/GCodes Time In: 950 Time Out: 1010 Total Billed Treatment Time: 20 Total Billed Treatment 1,FA20m LEANA BOURNE PAPER HANGER Feb 24, 2021 10:33
[2021-02-24] MEDS: ENOXAPARIN 40 MG/0.4 ML (LOVENOX) SYR SC SCH (14:05)
[2021-02-24 19:59] VITALS: BP 99/64
[2021-02-25] MEDS: KCL 10 MEQ TAB (MICRO K) PO SCH (07:06)
[2021-02-25] MEDS: MULTIVIT W/MINERALS TAB (THERAGRAN M) PO SCH (07:21)
[2021-02-25] MEDS: LACTOBACILLUS ACIDOPHILUS (PROBIOTIC) CAPSULE PO SCH (07:21)
[2021-02-25] MEDS: CLOPIDOGREL 75 MG (PLAVIX) TABLET PO SCH (07:21)
[2021-02-25] MEDS: CYANOCOBALAMIN 1,000 MCG (VITAMIN B-12) TABLET PO SCH (07:22)
[2021-02-25] MEDS: DOCUSATE SODIUM 100 MG (COLACE) CAP PO SCH ×2 (07:22→21:36)
[2021-02-25] MEDS: VITAMIN D3 25 MCG (1,000 UNITS) TABLET PO SCH (07:22)
--- NOTE | 2021-02-25 07:26 | PM&R Progress Note ---
Subjective HPI/CC On Admission Date Seen by Provider: Feb 25, 2021 Time Seen by Provider: 12:30 Subjective/Events-last exam 02/25/21: No major issues reported Pheba out 03/02/21 Off O2 Doing well BM+ 02/24/2021: Patient doing really well Eating much better Check meds labs 02/23/2021: Patient in a good mood Took a shower today Pheba good on incision Weaned off oxygen Bowels moving 02/22/2021: Pt doing well Urine is a bit cloudy so will increase fluid intake Bowels are moving May need to wean oxygen 02/21/2021: Pt doing about the same Hgb 10.9 Had a previous CVA so likely causes the confusion Pet pass is very thrilling for her Bowels moved a small amount but will maintain the laxatives for her 02/20/2021: Pt settling in well Wants a pet pass Bed alarm initiated due to impulsive behavior Cognitive decline noted- awaits SLUM score by speech therapy Potassium 3.5 will start a potassium pill Bowels moved on 02/17/21 so will give laxatives Review of Systems General: Fatigue, Malaise Objective Exam Vital Signs Vital Signs Date Time Temp Pulse Resp B/P (MAP) Pulse Ox O2 Delivery O2 Flow Rate FiO2 02/25/21 20:00 37.1 83 18 103/53 (70) 97 Room Air 02/21/21 20:18 21 02/19/21 13:14 2.00 Capillary Refill : General Appearance: No Apparent Distress, WD/WN, Chronically ill, Thin HEENT: PERRL/EOMI, Normal ENT Inspection, Pharynx Normal Neck: Full Range of Motion, Normal Inspection, Non Tender, Supple, Carotid Bruit Respiratory: Chest Non Tender, Lungs Clear, Normal Breath Sounds, No Accessory Muscle Use, No Respiratory Distress Cardiovascular: Regular Rate, Rhythm, No Edema, No Gallop, No JVD, No Murmur, Normal Peripheral Pulses Gastrointestinal: Normal Bowel Sounds, No Organomegaly, No Pulsatile Mass, Non Tender, Soft Back: Normal Inspection, No CVA Tenderness, No Vertebral Tenderness Extremity: Normal Capillary Refill, Normal Inspection, Normal Range of Motion (Except left leg), Non Tender, No Calf Tenderness, No Pedal Edema Neurologic/Psychiatric: Alert, Oriented x3, No Motor/Sensory Deficits, Normal Mood/Affect, Abnormal Gait, Motor Weakness Skin: Normal Color, Warm/Dry Lymphatic: No Adenopathy Results/Procedures Lab Patient resulted labs reviewed. FIM Transfers Therapy Code Descriptions/Definitions Functional [place] Measure: 0=Not Assessed/NA 4=Minimal Assistance 1=Total Assistance 5=Supervision or Setup 2=Maximal Assistance 6=Modified [place] 3=Moderate Assistance 7=Complete IndependenceSCALE: Activities may be completed with or without assistive devices. 6-Dxquzzoiwl-pgldhmv completes the activity by him/herself with no assistance f rom a helper. 5-Set-up or Clean-up Assistance-helper sets up or cleans up; patient completes activity. [place] assists only prior to or following the activity. 4-Supervision or Touching Assistance-helper provides verbal cues and/or touching/steadying and/or contact guard assistance as patient completes activity. Assistance may be provided throughout the activity or intermittently. 3-Partial/Moderate Assistance-helper does LESS THAN HALF the effort. [place] lifts, holds or supports trunk or limbs, but provides less than half the effort. 2-Substantial/Maximal Assistance-helper does MORE THAN HALF the effort. [place] lifts or holds trunk or limbs and provides more than half the effort. 6-Oqkfpzras-qeisam does ALL the effort. Patient does none of the effort to complete the activity. Or, the assistance of 2 or more helpers is required for the patient to complete the activity. If activity was not attempted, code reason: 7-Patient Refused. 9-Not Applicable-not attempted and the patient did not perform the activity before the current illness, exacerbation or injury. 10-Not Attempted due to Environmental Limitations-(lack of equipment, weather restraints, etc.). 88-Not Attempted due to Medical Conditions or Safety Concerns. Roll Left to Right (QC): 5 Sit to Lying (QC): 3 Sit to Stand (QC): 4 Chair/Pcq-zg-Tsafo Xfer(QC): 5 Car Transfer (QC): 4 Gait Training Does the Patient Walk?: Yes Distance: 150 feet Walk 10 feet (QC): 4 Walk 50 ft with 2 Turns(QC): 4 Walk 150 ft (QC): 4 Walking 10ft/uneven surface-QC: 4 Gait Persons Needed: 1 Gait Assistive Device: FWW Wheelchair Training Does the Pt Use a Wheelchair?: No Wheel 50 ft with 2 turns (QC): 88 Wheel 150 ft (QC): 88 Stair Training Stair Training: Handrails/: 2 handrails #of Steps: 12 1 Step (curb) (QC): 4 4 Steps (QC): 4 12 Steps (QC): 4 Stairs: Pattern: Step to Balance Picking up an Object (QC): 6 ADL-Treatment Eating (QC): 6 (Per clinical judgment.) Oral Hygiene (QC): 6 Bathing Location: L Arm, R Arm, L Upper Leg, R Upper Leg, Chest, Abdomen, Perineal Area Shower/Bathe Self (QC): 4 (Supervision for safety.) Upper Body Dressing (QC): 4 Lower Body Dressing (QC): 4 On/Off Footwear (QC): 4 Toileting Hygiene (QC): 6 Toilet Transfer (QC): 6 Assessment/Plan Assessment and Plan Assess & Plan/Chief Complaint Assessment: Status post left hip fracture Osteoporosis COPD Former smoker Postop constipation History of CVA Cognitive decline Plan: Inpatient rehab protocol Home meds Supportive care 02/20/2021: Monitor confusion Supportive care Laxatives 02/21/2021: Supportive care Pet Pass 02/22/2021: Supportive care Discharge Friday02/23/2021: Supportive care Discharge on Friday02/24/2021: Supportive care Discharge next week 02/25/21: Monitor closely (1) Intertrochanteric fracture of left hip Status: Acute (2) History of stroke Status: Chronic MAGGIE ESCAMILLA DO Feb 25, 2021 07:26
[2021-02-25 07:30] VITALS: BP 92/53
[2021-02-25] MEDS: RT--FLUTICASONE/SALMETEROL 113-14 (AIRDUO RespiCLICK) IH SCH (08:07)
[2021-02-25] MEDS: SENNA W/DOCUSATE (SENOKOT S) TABLET PO SCH ×2 (08:32→21:36)
[2021-02-25] MEDS: SENNOSIDES 8.6 MG (SENOKOT) TAB PO SCH ×2 (08:32→21:36)
[2021-02-25] MEDS: polyethylene glycoL POWDER 17 GM (MIRALAX) PACK PO SCH ×2 (08:32→21:36)
[2021-02-25] MEDS: ENOXAPARIN 40 MG/0.4 ML (LOVENOX) SYR SC SCH (15:46)
[2021-02-25 20:00] VITALS: BP 103/53
[2021-02-26 06:13] LABS: BASOPHILS # (AUTO) 0.1 10^3/uL (0.0-0.1); BASOPHILS % (AUTO) 1 % (0-10); EOSINOPHILS # (AUTO) 0.2 10^3/uL (0.0-0.3); EOSINOPHILS % (AUTO) 3 % (0-10); HEMATOCRIT 36 % (35-52); HEMOGLOBIN 11.6 g/dL (11.5-16.0); LYMPHOCYTES % (AUTO) 31 % (12-44); MEAN CORPUSCULAR HEMOGLOBIN 31 pg (25-34); MEAN CORPUSCULAR HGB CONC 33 g/dL (32-36); MEAN CORPUSCULAR VOLUME 94 fL (80-99); MEAN PLATELET VOLUME 8.8 fL (9.0-12.2); MONOCYTES # (AUTO) 0.6 10^3/uL (0.0-1.0); MONOCYTES % (AUTO) 9 % (0-12); NEUTROPHILS # (AUTO) 3.6 10^3/uL (1.8-7.8); NEUTROPHILS % (AUTO) 56 % (42-75); PLATELET COUNT 430 10^3/uL (130-400); WHITE BLOOD COUNT 6.4 10^3/uL (4.3-11.0)
[2021-02-26] MEDS: KCL 10 MEQ TAB (MICRO K) PO SCH (06:37)
[2021-02-26 06:39] LABS: ALBUMIN 3.4 GM/DL (3.2-4.5); BILIRUBIN,TOTAL 0.4 MG/DL (0.1-1.0); CALCIUM 9.2 MG/DL (8.5-10.1); CREATININE SERUM 0.75 MG/DL (0.60-1.30); POTASSIUM 4.1 MMOL/L (3.6-5.0); TOTAL PROTEIN 6.4 GM/DL (6.4-8.2)
[2021-02-26 08:00] VITALS: BP 108/58
[2021-02-26] MEDS: CLOPIDOGREL 75 MG (PLAVIX) TABLET PO SCH (08:43)
[2021-02-26] MEDS: SENNA W/DOCUSATE (SENOKOT S) TABLET PO SCH ×2 (08:43→20:04)
[2021-02-26] MEDS: CYANOCOBALAMIN 1,000 MCG (VITAMIN B-12) TABLET PO SCH (08:43)
[2021-02-26] MEDS: VITAMIN D3 25 MCG (1,000 UNITS) TABLET PO SCH (08:43)
[2021-02-26] MEDS: MULTIVIT W/MINERALS TAB (THERAGRAN M) PO SCH (08:43)
[2021-02-26] MEDS: DOCUSATE SODIUM 100 MG (COLACE) CAP PO SCH ×2 (08:43→20:04)
[2021-02-26] MEDS: LACTOBACILLUS ACIDOPHILUS (PROBIOTIC) CAPSULE PO SCH (08:43)
[2021-02-26] MEDS: SENNOSIDES 8.6 MG (SENOKOT) TAB PO SCH ×2 (09:00→20:04)
[2021-02-26] MEDS: polyethylene glycoL POWDER 17 GM (MIRALAX) PACK PO SCH ×2 (09:00→20:04)
--- NOTE | 2021-02-26 09:57 | Occupational Ther Daily Note ---
OT Current Status-Daily Note Subjective Pt alert, sitting in recliner. Pt agrees to therapy. No c/o pain. Mental Status/Objective Patient Orientation: Person, Place, Time, Situation ADL-Treatment 1st session (): Pt agrees to shower. Pt independent with toileting and toilet transfer using FWW, grabbars and BSC over toilet. Completes shower sitting on shower bench 25% and standing 75% using grabbars to stabilize self in standing. Pt able to reach all areas, using LH sponge to bathe L foot. After set up, pt able to complete dressing by self. Pt uses FWW in standing to stabilize while hiking pants over hips. Pt slips shoes on/off by self. Standing at sink, pt able to complete oral care independently. Independent with eating. After session, pt sitting in recliner with call light/phone in reach. All needs met in room. Therapy Code Descriptions/Definitions Functional [place] Measure: 0=Not Assessed/NA 4=Minimal Assistance 1=Total Assistance 5=Supervision or Setup 2=Maximal Assistance 6=Modified [place] 3=Moderate Assistance 7=Complete IndependenceSCALE: Activities may be completed with or without assistive devices. 1-Sepcodmtue-escicwy completes the activity by him/herself with no assistance from a helper. 5-Set-up or Clean-up Assistance-helper sets up or cleans up; patient completes activity. [place] assists only prior to or following the activity. 4-Supervision or Touching Assistance-helper provides verbal cues and/or touching/steadying and/or contact guard assistance as patient completes activity. Assistance may be provided throughout the activity or intermittently. 3-Partial/Moderate Assistance-helper does LESS THAN HALF the effort. [place] lifts, holds or supports trunk or limbs, but provides less than half the effort. 2-Substantial/Maximal Assistance-helper does MORE THAN HALF the effort. [place] lifts or holds trunk or limbs and provides more than half the effort. 2-Pzbewmdjz-sftmae does ALL the effort. Patient does none of the effort to complete the activity. Or, the assistance of 2 or more helpers is required for the patient to complete the activity. If activity was not attempted, code reason: 7-Patient Refused. 9-Not Applicable-not attempted and the patient did not perform the activity before the current illness, exacerbation or injury. 10-Not Attempted due to Environmental Limitations-(lack of equipment, weather restraints, etc.). 88-Not Attempted due to Medical Conditions or Safety Concerns. Eating (QC): 6 Oral Hygiene (QC): 6 Shower/Bathe Self (QC): 6 Upper Body Dressing (QC): 5 Lower Body Dressing (QC): 5 On/Off Footwear: 5 Toileting Hygiene (QC): 6 Toilet Transfer (QC): 6 Other Treatment 2nd session ([id number]): Pt educated on stepping into tub shower if unable to use bench or son's walk-in shower. Pt able to complete with CGA for safety. Reminders for technique throughout transfer. Pt able to ambulate to/from using FWW independently. After session, pt sitting in recliner with call light/phone in reach. All needs met in room. OT Short Term Goals Short Term Goals Time Frame: Feb 26, 2021 Toileting hygiene: 5 Lower body dressin Putting on/taking off footwear: 5 OT Jail Goals Gauger Chief Delivery Goals Time Frame: Mar 09, 2021 Eating (QC): 6 (met) Oral Hygiene (QC): 6 (met) Toileting Hygiene (QC): 6 (met) Shower/Bathe Self (QC): 6 (met) Upper Body Dressing (QC): 6 (not met) Lower Body Dressing (QC): 6 (not met) On/Off Footwear (QC): 6 (not met) Additional Goals: 1-Demonstrate ADL Tasks, 2-Verbalize Understanding, 3- ImproveStrength/Lara 1=Demonstrate adherence to instructed precautions during ADL tasks. 2=Patient will verbalize/demonstrate understanding of assistive devices/modifications for ADL. 3=Patient will improve strength/tolerance for activity to enable patient to perform ADL's. OT Education/Plan Problem List/Assessment Assessment: Impaired Self-Care Skills Discharge Recommendations Plan/Recommendations: Continue POC Treatment Plan/Plan of Care Patient would benefit from OT for education, treatment and training to promote independence in ADL's, mobility, safety and/or upper extremity function for ADL's. Plan of Care: ADL Retraining, Functional Mobility, Group Exercise/Act as Ind, UE Funct Exercise/Act Treatment Duration: Mar 09, 2021 Frequency: At least 5 of 7 days/Wk (IRF) Estimated Hrs Per Day: 1.5 hours per day Agreement: Yes Rehab Potential: Fair Time/GCodes Start Time: 07:30 (1138) Stop Time: 08:30 (1201) Total Time Billed (hr/min): 83 Billed Treatment Time 1 visit([id number]) ADL 4 (60 min) 1 visit([id number]) FA 2 (23 min) JOSE G RUIZ Feb 26, 2021 09:57
--- NOTE | 2021-02-26 09:59 | PM&R Progress Note ---
Subjective HPI/CC On Admission Date Seen by Provider: Feb 26, 2021 Time Seen by Provider: 10:00 Subjective/Events-last exam 02/26/21: Pt doing a lot better. UA was ordered for an In and out Catheter due to Urinary Frequency. Left the dressing off incision looks good Off O2 Discharge tomorrow 02/25/21: No major issues reported Geronimo out 03/02/21 Off O2 Doing well BM+ 02/24/2021: Patient doing really well Eating much better Check meds labs 02/23/2021: Patient in a good mood Took a shower today Ryan good on incision Weaned off oxygen Bowels moving 02/22/2021: Pt doing well Urine is a bit cloudy so will increase fluid intake Bowels are moving May need to wean oxygen 02/21/2021: Pt doing about the same Hgb 10.9 Had a previous CVA so likely causes the confusion Pet pass is very thrilling for her Bowels moved a small amount but will maintain the laxatives for her 02/20/2021: Pt settling in well Wants a pet pass Bed alarm initiated due to impulsive behavior Cognitive decline noted- awaits SLUM score by speech therapy Potassium 3.5 will start a potassium pill Bowels moved on 02/17/21 so will give laxatives Review of Systems General: Fatigue, Malaise Genitourinary: Dysuria, Frequency Objective Exam Vital Signs Vital Signs Date Time Temp Pulse Resp B/P (MAP) Pulse Ox O2 Delivery O2 Flow Rate FiO2 02/26/21 22:21 96 Room Air 02/26/21 20:08 37.3 89 18 124/57 (79) 02/21/21 20:18 21 Capillary Refill : General Appearance: No Apparent Distress, WD/WN, Chronically ill, Thin HEENT: PERRL/EOMI, Normal ENT Inspection, Pharynx Normal Neck: Full Range of Motion, Normal Inspection, Non Tender, Supple, Carotid Bruit Respiratory: Chest Non Tender, Lungs Clear, Normal Breath Sounds, No Accessory Muscle Use, No Respiratory Distress Cardiovascular: Regular Rate, Rhythm, No Edema, No Gallop, No JVD, No Murmur, Normal Peripheral Pulses Gastrointestinal: Normal Bowel Sounds, No Organomegaly, No Pulsatile Mass, Non Tender, Soft Back: Normal Inspection, No CVA Tenderness, No Vertebral Tenderness Extremity: Normal Capillary Refill, Normal Inspection, Normal Range of Motion (Except left leg), Non Tender, No Calf Tenderness, No Pedal Edema Neurologic/Psychiatric: Alert, Oriented x3, No Motor/Sensory Deficits, Normal Mood/Affect, Abnormal Gait, Motor Weakness Skin: Normal Color, Warm/Dry Lymphatic: No Adenopathy Results/Procedures Lab Laboratory Tests 02/26/21 05:53 Patient resulted labs reviewed. FIM Transfers Therapy Code Descriptions/Definitions Functional [place] Measure: 0=Not Assessed/NA 4=Minimal Assistance 1=Total Assistance 5=Supervision or Setup 2=Maximal Assistance 6=Modified [place] 3=Moderate Assistance 7=Complete IndependenceSCALE: Activities may be completed with or without assistive devices. 2-Gjcayhslns-reyydlk completes the activity by him/herself with no assistance from a helper. 5-Set-up or Clean-up Assistance-helper sets up or cleans up; patient completes activity. [place] assists only prior to or following the activity. 4-Supervision or Touching Assistance-helper provides verbal cues and/or touching/steadying and/or contact guard assistance as patient completes activity. Assistance may be provided throughout the activity or intermittently. 3-Partial/Moderate Assistance-helper does LESS THAN HALF the effort. [place] lifts, holds or supports trunk or limbs, but provides less than half the effort. 2-Substantial/Maximal Assistance-helper does MORE THAN HALF the effort. [place] lifts or holds trunk or limbs and provides more than half the effort. 2-Rjgsrtmst-tinhaq does ALL the effort. Patient does none of the effort to complete the activity. Or, the assistance of 2 or more helpers is required for the patient to complete the activity. If activity was not attempted, code reason: 7-Patient Refused. 9-Not Applicable-not attempted and the patient did not perform the activity before the current illness, exacerbation or injury. 10-Not Attempted due to Environmental Limitations-(lack of equipment, weather restraints, etc.). 88-Not Attempted due to Medical Conditions or Safety Concerns. Roll Left to Right (QC): 5 Sit to Lying (QC): 3 Sit to Stand (QC): 4 Chair/Ixt-ke-Wdxix Xfer(QC): 5 Car Transfer (QC): 4 Gait Training Does the Patient Walk?: Yes Distance: 150 feet Walk 10 feet (QC): 4 Walk 50 ft with 2 Turns(QC): 4 Walk 150 ft (QC): 4 Walking 10ft/uneven surface-QC: 4 Gait Persons Needed: 1 Gait Assistive Device: FWW Wheelchair Training Does the Pt Use a Wheelchair?: No Wheel 50 ft with 2 turns (QC): 88 Wheel 150 ft (QC): 88 Stair Training Stair Training: Handrails/: 2 handrails #of Steps: 12 1 Step (curb) (QC): 4 4 Steps (QC): 4 12 Steps (QC): 4 Stairs: Pattern: Step to Balance Picking up an Object (QC): 6 ADL-Treatment Eating (QC): 6 Oral Hygiene (QC): 6 Bathing Location: L Arm, R Arm, L Upper Leg, R Upper Leg, Chest, Abdomen, Kasandra gibran Area Shower/Bathe Self (QC): 6 Upper Body Dressing (QC): 5 Lower Body Dressing (QC): 5 On/Off Footwear (QC): 5 Toileting Hygiene (QC): 6 Toilet Transfer (QC): 6 Assessment/Plan Assessment and Plan Assess & Plan/Chief Complaint Assessment: Status post left hip fracture Osteoporosis COPD Former smoker Postop constipation History of CVA Cognitive decline Early UTI Plan: Inpatient rehab protocol Home meds Supportive care 02/20/2021: Monitor confusion Supportive care Laxatives 02/21/2021: Supportive care Pet Pass 02/22/2021: Supportive care Discharge Friday02/23/2021: Supportive care Discharge on Friday02/24/2021: Supportive care Discharge next week 02/25/21: Monitor closely 02/26/21: Await ALEJANDRO tomorrow (1) Intertrochanteric fracture of left hip Status: Acute (2) History of stroke Status: Chronic MAGGIE ESCAMILLA DO Feb 26, 2021 09:59
--- NOTE | 2021-02-26 10:59 | Physical Therapy Daily Note ---
PT Daily Note-Current Subjective "I'm suppose to go home tomorrow". No c/o pain, feels confident all will go well Pain Location: No Pain Reported Mental Status Patient Orientation: Normal For Age Transfers SCALE: Activities may be completed with or without assistive devices. 5-Earfomwmef-qdqdtcr completes the activity by him/herself with no assistance from a helper. 5-Set-up or Clean-up Assistance-helper sets up or cleans up; patient completes activity. [place] assists only prior to or following the activity. 4-Supervision or Touching Assistance-helper provides verbal cues and/or touching/steadying and/or contact guard assistance as patient completes activity. Assistance may be provided throughout the activity or intermittently. 3-Partial/Moderate Assistance-helper does LESS THAN HALF the effort. [place] lifts, holds or supports trunk or limbs, but provides less than half the effort. 2-Substantial/Maximal Assistance-helper does MORE THAN HALF the effort. [place] lifts or holds trunk or limbs and provides more than half the effort. 3-Yalkpordv-wzcmvz does ALL the effort. Patient does none of the effort to complete the activity. Or, the assistance of 2 or more helpers is required for the patient to complete the activity. If activity was not attempted, code reason: 7-Patient Refused. 9-Not Applicable-not attempted and the patient did not perform the activity before the current illness, exacerbation or injury. 10-Not Attempted due to Environmental Limitations-(lack of equipment, weather restraints, etc.). 88-Not Attempted due to Medical Conditions or Safety Concerns. Roll Left & Right (QC): 6 Sit to Lying (QC): 5 Lying to Sitting/Side of Bed(Q: 6 Sit to Stand (QC): 6 Chair/Owz-mx-Hlkle Xfer(QC): 6 Toilet Transfer (QC): 6 Car Transfer (QC): 6 pt. needs some cuing for sit to sup Weight Bearing Left Lower Extremity: Left Weight Bearing/Tolerated Gait Training Does the Patient Walk?: Yes Walk 10 feet (QC): 6 Walk 50 ft with 2 Turns(QC): 6 Walk 150 ft (QC): 6 Walking 10ft/uneven surface-QC: 6 Gait Persons Needed: 0 Gait Assistive Device: FWW pt. requires guidance about unit but no cuing or touching Stair Training Stair Training: Handrails/: 2 handrails #of Steps: 4 1 Step (curb) (QC): 5 4 Steps (QC): 5 12 Steps (QC): 7 Stairs: Pattern: Step to occas cuing for sequence Balance Picking up an Object (QC): 88 Exercises Supine Ex: Ankle pumps, Quad Set, Rolling, Glut sets, Heel Slides, Short Arc Quads, Scooting, Straight leg raise (assisted left), Hip abd/add Supine Reps: 15 Treatments TRFs, gait, stairs, emphasis on in out bed simulating pts 29in bed height Assessment Current Status: Good Progress good progress in all phases, good family support PT Short Term Goals Short Term Goals Time Frame: Feb 26, 2021 Roll Left & Right: 6 Sit to lyin Lying to sitting on side of be: 4 Sit to stand: 5 Chair/opz-ad-rgfza transfer: 5 Walk 10 feet: 5 Walk 50 feet with two turns: 5 Walk 150 feet: 5 PT Upper Doubler Goals Mcfp Goals PT Mcfp Goals Time Frame: Mar 12, 2021 Roll Left & Right (QC): 6 Sit to Lying (QC): 6 Lying-Sitting on Side/Bed(QC): 6 Sit to Stand (QC): 6 Chair/Jye-qp-Wuuix Xfer(QC): 6 Toilet Transfer (QC): 6 Car Transfer (QC): 4 (MET) Does the Patient Walk: Yes Walk 10 feet (QC): 6 Walk 50ft with 2 Turns (QC): 6 Walk 150 ft (QC): 6 Walking 10ft on Uneven Surface: 6 1 Step (curb) (QC): 4 4 Steps (QC): 4 12 Steps (QC): 4 Picking up an Object (QC): 6 Wheel 50 feet with 2 turns (QC: 9 Wheel 150 feet: 9 PT Plan Treatment/Plan Treatment Plan: Continue Plan of Care Treatment Plan: Bed Mobility, Education, Functional Activity Lara, Functional Strength, Group Therapy, Gait, Safety, Therapeutic Exercise, Transfers Treatment Duration: Mar 12, 2021 Frequency: At least 5 of 7 days/Wk (IRF) Estimated Hrs Per Day: 1.5 hours per day Patient and/or Family Agrees t: Yes Safety Risks/Education Patient Education: Gait Training, Transfer Techniques, Steps, Reviewed Precautions, Correct Positioning, Disease Process, Safety Issues Teaching Recipient: Patient Teaching Methods: Demonstration, Discussion Response to Teaching: Verbalize Understanding, Return Demonstration, Reinforcement Needed Time/GCodes Time In: 1000 Time Out: 1100 Total Billed Treatment Time: 60 Total Billed Treatment 1,FA30m,GT15m,FA15m LEANA BOURNE CDL DRIVER Feb 26, 2021 10:59
--- NOTE | 2021-02-26 12:40 | Speech Therapy Daily Note ---
Speech Daily Progress Note Subjective Date Seen by Provider: Feb 26, 2021 Time Seen by Provider: 08:30 The patient was seated upright in her recliner, eating breakfast upon entrance to her room. The patient greeted the clinician appropriately and was agreeable to participation in the cognitive linguistic treatment session. The patient stated she is excited to discharge home and feels she will have "a lot of help from my daughters." Objective - Orientation: The patient is independently oriented to self, location, city, month, day of week, date, and year. - Functional Recall: The patient completes functional recall of the morning therapy sessions as well as safety reminders and awareness from additional disciplines. The patient participates in a structured conversation remaining on topic without redirection necessary. Expression of Ideas/Wants: Exhibits (3) Understanding Verbal Content: Usually Understands (3) Brief Interview-Mental Status: Yes Repetition of Three Words: Three (3) Temporal Orientation: Year: Correct (3) Temporal Orientation: Month: Accurate within 5 days(2) Temporal Orientation: Day: Correct (1) Recall : Wear to say "Sock": Yes, no cue required (2) Recall : Color: Yes, no cue required (2) Recall : Bed: No, after cueing (0) Memory/Recall Ability: Current season, That he or she is in a hsp/hsp unit Assessment Assessment Current Status: Good Progress Treatment Plan Continue Plan of Care Speech Short Term Goals Short Term Goals Short Term Goals 1. The patient will display increased accuracy (80%) with functional memory strategies, independently. 2. The patient will complete functional problem solving tasks with 80% accuracy, independently. Time Frame-STG: Two Weeks. Speech Longterm Goals Flue Tile Press Operator Goals 1. The patient will demonstrate improved cognitive linguistic function for increased independence and return to the least restrictive environment. Time Frame: Three weeks. Speech-Plan Treatment Plan Speech Therapy Treatment Plan: Continue Plan of Care Treatment Duration: Feb 19, 2021 Frequency: 4 times per week (Four to five times per week.) Estimated Hrs Per Day: .25 hour per day Rehab Potential: Fair Pt/Family Agrees to Plan: Yes Safety Risks/Education Teaching Recipient: Patient Teaching Methods: Discussion Response to Teaching: Verbalize Understanding Education Topics Provided: Safety Awareness Time Speech Therapy Time In: 08:30 Speech Therapy Time Out: 09:00 Total Billed Time: 30 Billed Treatment Time JOHANN [place] [facility] Feb 26, 2021 12:40
[2021-02-26] MEDS: RT--FLUTICASONE/SALMETEROL 113-14 (AIRDUO RespiCLICK) IH SCH (14:12)
--- NOTE | 2021-02-26 14:15 | Physical Therapy Daily Note ---
PT Daily Note-Current Subjective Pt. agrees to Rx reluctantly. States she knows the nurse is coming in for a procedure , maybe a catheter and she is apprehensive. This LINER ASSEMBLER attempts to calm her Pain Numeric Pain Scale: 3 Location: Left Location Body Site: Hip Pain Description: Ache Mental Status Patient Orientation: Person, Place Transfers SCALE: Activities may be completed with or without assistive devices. 2-Lryexjovjy-jytvrsc completes the activity by him/herself with no assistance from a helper. 5-Set-up or Clean-up Assistance-helper sets up or cleans up; patient completes activity. Katy assists only prior to or following the activity. 4-Supervision or Touching Assistance-helper provides verbal cues and/or touching/steadying and/or contact guard assistance as patient completes activity. Assistance may be provided throughout the activity or intermittently. 3-Partial/Moderate Assistance-helper does LESS THAN HALF the effort. Katy lifts, holds or supports trunk or limbs, but provides less than half the effort. 2-Substantial/Maximal Assistance-helper does MORE THAN HALF the effort. Katy lifts or holds trunk or limbs and provides more than half the effort. 2-Itfyexeio-dbrhjz does ALL the effort. Patient does none of the effort to complete the activity. Or, the assistance of 2 or more helpers is required for the patient to complete the activity. If activity was not attempted, code reason: 7-Patient Refused. 9-Not Applicable-not attempted and the patient did not perform the activity before the current illness, exacerbation or injury. 10-Not Attempted due to Environmental Limitations-(lack of equipment, weather restraints, etc.). 88-Not Attempted due to Medical Conditions or Safety Concerns. mod assist in to bed LLE in 1st, sit to stand SBA Weight Bearing Left Lower Extremity: Left Weight Bearing/Tolerated Gait Training Does the Patient Walk?: Yes Gait Assistive Device: FWW 150 ft x 2 SBA, slow, uneven step length Exercises NuStep Minutes: 5 NuStep Workload: 2 Treatments in bed after Rx to be ready for nurse procedure to follow, call sams at hand Assessment Current Status: Good Progress PT Short Term Goals Short Term Goals Time Frame: Feb 26, 2021 Roll Left & Right: 6 Sit to lyin Lying to sitting on side of be: 4 Sit to stand: 5 Chair/dsb-xd-srisk transfer: 5 Walk 10 feet: 5 Walk 50 feet with two turns: 5 Walk 150 feet: 5 PT Mcc Goals Keysmith Goals PT Keysmith Goals Time Frame: Mar 12, 2021 Roll Left & Right (QC): 6 Sit to Lying (QC): 6 Lying-Sitting on Side/Bed(QC): 6 Sit to Stand (QC): 6 Chair/Hox-mg-Psbtg Xfer(QC): 6 Toilet Transfer (QC): 6 Car Transfer (QC): 4 (MET) Does the Patient Walk: Yes Walk 10 feet (QC): 6 Walk 50ft with 2 Turns (QC): 6 Walk 150 ft (QC): 6 Walking 10ft on Uneven Surface: 6 1 Step (curb) (QC): 4 4 Steps (QC): 4 12 Steps (QC): 4 Picking up an Object (QC): 6 Wheel 50 feet with 2 turns (QC: 9 Wheel 150 feet: 9 PT Plan Treatment/Plan Treatment Plan: Continue Plan of Care Treatment Plan: Bed Mobility, Education, Functional Activity Lara, Functional Strength, Group Therapy, Gait, Safety, Therapeutic Exercise, Transfers Treatment Duration: Mar 12, 2021 Frequency: At least 5 of 7 days/Wk (IRF) Estimated Hrs Per Day: 1.5 hours per day Patient and/or Family Agrees t: Yes Safety Risks/Education Patient Education: Gait Training, Transfer Techniques, Correct Positioning, Disease Process, Safety Issues Time/GCodes Time In: 1340 Time Out: 1400 Total Billed Treatment Time: 20 Total Billed Treatment 1,GT20m LEANA BOURNE LINER ASSEMBLER Feb 26, 2021 14:15
[2021-02-26 14:42] LABS: BILIRUBIN,URINE NEGATIVE (NEGATIVE); CLARITY,URINE CLOUDY; COLOR,URINE YELLOW; GLUCOSE, URINE (UA) NEGATIVE (NEGATIVE); KETONES,URINE NEGATIVE (NEGATIVE); LEUKOCYTE ESTERASE ,URINE 1+ (NEGATIVE); NITRITE,URINE NEGATIVE (NEGATIVE); PH,URINE 8.5 (5-9); PROTEIN,URINE 2+ (NEGATIVE)
[2021-02-26] MEDS: ENOXAPARIN 40 MG/0.4 ML (LOVENOX) SYR SC SCH (15:21)
[2021-02-26 15:35] LABS: BACTERIA,URINE LARGE /HPF; SQUAMOUS EPITHELIAL CELL,UR RARE /HPF; TRIPLE PHOSPHATE CRYSTAL,UR MODERATE /LPF
[2021-02-26 20:08] VITALS: BP 124/57
[2021-02-27] MEDS ORDERED: CEFD300C3 PO (05:58)
[2021-02-27] MEDS ORDERED: OXC5T PO (05:58)
--- NOTE | 2021-02-27 06:00 | Discharge Summary ---
Diagnosis/Chief Complaint Date of Admission Feb 19, 2021 at 11:45 Date of Discharge Discharge Date: Feb 27, 2021 Discharge Diagnosis Assessment: Status post left hip fracture Osteoporosis COPD Former smoker Postop constipation History of CVA Cognitive decline Early UTI Plan: Inpatient rehab protocol Home meds Supportive care 02/20/2021: Monitor confusion Supportive care Laxatives 02/21/2021: Supportive care [place] 02/22/2021: Supportive care Discharge Friday02/23/2021: Supportive care Discharge on Friday02/24/2021: Supportive care Discharge next week 02/25/21: Monitor closely 02/26/21: Await UA DC tomorrow (1) Intertrochanteric fracture of left hip Status: Acute (2) History of stroke Status: Chronic Discharge Summary Discharge Physical Examination Allergies: Coded Allergies: celecoxib (Unverified Allergy, Mild, RASH, 03/16/10) Penicillins (Unverified Allergy, Unknown, 01/05/14) Vitals & I&Os Vital Signs Date Time Temp Pulse Resp B/P (MAP) Pulse Ox O2 Delivery O2 Flow Rate FiO2 02/27/21 12:00 36.4 73 14 104/57 92 Room Air 0.00 General Appearance: Alert, Oriented X3, Cooperative Respiratory: Clear to Auscultation Cardiovascular: Regular Rate Neuro: Normal Gait, Normal Speech, Strength at 5/5 X4 Ext Psych/Mental Status: Mental Status NL Hospital Course Was the Problem List Reviewed?: Yes Pt had an uneventful 9 day hospital course after she was admitted status post left hip fracture and in need of intensive recovery. Pt did wean off oxygen during hospital stay. Pt was found to be with early UTI at time of discharge and was placed on Omnicef 300 BID empirically will hold off on changing that until the urine culture is known. Pt was stable and ready for discharge. Labs (last 24 hrs) Laboratory Tests 02/20/21 05:45: White Blood Count 5.4, Red Blood Count 3.54L, Hemoglobin 10.9L, Hematocrit 33L, Mean Corpuscular Volume 94, Mean Corpuscular Hemoglobin 31, Mean Corpuscular Hemoglobin Concent 33, Red Cell Distribution Width 13.0, Platelet Count 223, Mean Platelet Volume 9.3, Immature Granulocyte % (Auto) 0, Neutrophils (%) (Auto) 68, Lymphocytes (%) (Auto) 20, Monocytes (%) (Auto) 9, Eosinophils (%) (Auto) 2, Basophils (%) (Auto) 1, Neutrophils # (Auto) 3.7, Lymphocytes # (Auto) 1.1, Monocytes # (Auto) 0.5, Eosinophils # (Auto) 0.1, Basophils # (Auto) 0.0, Immature Granulocyte # (Auto) 0.0, Sodium Level 139, Potassium Level 3.5L, Chloride Level 104, Carbon Dioxide Level 24, Anion Gap 11, Blood Urea Nitrogen 19H, Creatinine 0.75, Estimat Glomerular Filtration Rate 74, BUN/Creatinine Ratio 25, Glucose Level 95, Calcium Level 8.7, Corrected Calcium 9.3, Total Bilirubin 0.9, Aspartate Amino Transf (AST/SGOT) 19, Alanine Aminotransferase (ALT/SGPT) 11, Alkaline Phosphatase 60, Total Protein 6.0L, Albumin 3.2 02/26/21 05:53: White Blood Count 6.4, Red Blood Count 3.78L, Hemoglobin 11.6, Hematocrit 36, Me an Corpuscular Volume 94, Mean Corpuscular Hemoglobin 31, Mean Corpuscular Hemoglobin Concent 33, Red Cell Distribution Width 12.9, Platelet Count 430H, Mean Platelet Volume 8.8L, Immature Granulocyte % (Auto) 0, Neutrophils (%) (Auto) 56, Lymphocytes (%) (Auto) 31, Monocytes (%) (Auto) 9, Eosinophils (%) (Auto) 3, Basophils (%) (Auto) 1, Neutrophils # (Auto) 3.6, Lymphocytes # (Auto) 2.0, Monocytes # (Auto) 0.6, Eosinophils # (Auto) 0.2, Basophils # (Auto) 0.1, Immature Granulocyte # (Auto) 0.0, Sodium Level 139, Potassium Level 4.1, Chloride Level 105, Carbon Dioxide Level 24, Anion Gap 10, Blood Urea Nitrogen 19H, Creatinine 0.75, Estimat Glomerular Filtration Rate 74, BUN/Creatinine Ratio 25, Glucose Level 92, Calcium Level 9.2, Corrected Calcium 9.7, Total Bilirubin 0.4, Aspartate Amino Transf (AST/SGOT) 19, Alanine Aminotransferase (ALT/SGPT) 18, Alkaline Phosphatase 85, Total Protein 6.4, Albumin 3.4 02/26/21 14:25: Urine Color YELLOW, Urine Clarity CLOUDY, Urine pH 8.5, Urine Specific [place] 1.020, Urine Protein 2+H, Urine Glucose (UA) NEGATIVE, Urine Ketones NEGATIVE, Urine Nitrite NEGATIVE, Urine Bilirubin NEGATIVE, Urine Urobilinogen 0.2, Urine Leukocyte Esterase 1+H, Urine RBC (Auto) NEGATIVE, Urine RBC NONE, Urine WBC 5- 10H, Urine Squamous Epithelial Cells RARE, Urine Crystals PRESENTH, Urine Triple Phosphate Crystals MODERATEH, Urine Bacteria LARGEH, Urine Casts NONE, Urine Mucus NEGATIVE, Urine Culture Indicated YES Microbiology 02/26/21 Urine Culture - Preliminary, Resulted Proteus mirabilis Pending Labs Microbiology Date/Time Source Procedure Growth Status 02/26/21 14:25 Urine Straight Cath, In/Out Urine Culture - Preliminary Proteus mirabilis Resulted Laboratory Tests 02/20/21 05:45: White Blood Count 5.4, Red Blood Count 3.54, Hemoglobin 10.9, Hematocrit 33, Mean Corpuscular Volume 94, Mean Corpuscular Hemoglobin 31, Mean Corpuscular Hemoglobin Concent 33, Red Cell Distribution Width 13.0, Platelet Count 223, Mean Platelet Volume 9.3, Immature Granulocyte % (Auto) 0, Neutrophils (%) (Auto) 68, Lymphocytes (%) (Auto) 20, Monocytes (%) (Auto) 9, Eosinophils (%) (Auto) 2, Basophils (%) (Auto) 1, Neutrophils # (Auto) 3.7, Lymphocytes # (Auto) 1.1, Monocytes # (Auto) 0.5, Eosinophils # (Auto) 0.1, Basophils # (Auto) 0.0, Immature Granulocyte # (Auto) 0.0, Sodium Level 139, Potassium Level 3.5, Chloride Level 104, Carbon Dioxide Level 24, Anion Gap 11, Blood Urea Nitrogen 19, Creatinine 0.75, Estimat Glomerular Filtration Rate 74, BUN/Creatinine Ratio 25, Glucose Level 95, Calcium Level 8.7, Corrected Calcium 9.3, Total Bilirubin 0.9, Aspartate Amino Transf (AST/SGOT) 19, Alanine Aminotransferase (ALT/SGPT) 11, Alkaline Phosphatase 60, Total Protein 6.0, Albumin 3.2 02/26/21 05:53: White Blood Count 6.4, Red Blood Count 3.78, Hemoglobin 11.6, Hematocrit 36, Mean Corpuscular Volume 94, Mean Corpuscular Hemoglobin 31, Mean Corpuscular Hemoglobin Concent 33, Red Cell Distribution Width 12.9, Platelet Count 430, Mean Platelet Volume 8.8, Immature Granulocyte % (Auto) 0, Neutrophils (%) (Auto) 56, Lymphocytes (%) (Auto) 31, Monocytes (%) (Auto) 9, Eosinophils (%) (Auto) 3, Basophils (%) (Auto) 1, Neutrophils # (Auto) 3.6, Lymphocytes # (Auto) 2.0, Monocytes # (Auto) 0.6, Eosinophils # (Auto) 0.2, Basophils # (Auto) 0.1, Immature Granulocyte # (Auto) 0.0, Sodium Level 139, Potassium Level 4.1, Chloride Level 105, Carbon Dioxide Level 24, Anion Gap 10, Blood Urea Nitrogen 19, Creatinine 0.75, Estimat Glomerular Filtration Rate 74, BUN/Creatinine Ratio 25, Glucose Level 92, Calcium Level 9.2, Corrected Calcium 9.7, Total Bilirubin 0.4, Aspartate Amino Transf (AST/SGOT) 19, Alanine Aminotransferase (ALT/SGPT) 18, Alkaline Phosphatase 85, Total Protein 6.4, Albumin 3.4 02/26/21 14:25: Urine Color YELLOW, Urine Clarity CLOUDY, Urine pH 8.5, Urine Specific [place] 1.020, Urine Protein 2+, Urine Glucose (UA) NEGATIVE, Urine Ketones NEGATIVE, Urine Nitrite NEGATIVE, Urine Bilirubin NEGATIVE, Urine Urobilinogen 0.2, Urine Leukocyte Esterase 1+, Urine RBC (Auto) NEGATIVE, Urine RBC NONE, Urine WBC 5- 10, Urine Squamous Epithelial Cells RARE, Urine Crystals PRESENT, Urine Triple Phosphate Crystals MODERATE, Urine Bacteria LARGE, Urine Casts NONE, Urine Mucus NEGATIVE, Urine Culture Indicated YES Discharge Home Medications: Active Scripts Active Oxyir Tablet (Oxycodone HCl) 5 Mg Tab 5 Mg PO Q6H PRN Cefdinir 300 Mg Capsule 300 Mg PO BID Reported Biotin 1,000 Mcg Tablet 1,000 Mcg PO DAILY Slnauvm-Kdkyjzfvi-Pugb Tablet (Calcium Carbonate/Mag Oxide/Zn) 1 Each Tablet 1 Each PO DAILY Ocuvite with Lutein Tablet (Vit A,C & E/Lutein/Minerals) 1 Each Tablet 1 Each PO DAILY Multivitamin 1 Each Tablet 1 Each PO DAILY Probiotic (L.acidoph & Paracasei,B.lactis) 1 Each Capsule 1 Each PO DAILY Fish Oil 1,000 mg Softgel ([place]-3/Dha/Epa/Fish Oil) 1 Each Capsule 1 Each PO DAILY Vitamin B-12 (Cyanocobalamin (Vitamin B-12)) 500 Mcg Tablet 500 Mcg PO DAILY Vitamin D3 (Cholecalciferol (Vitamin D3)) 25 Mcg Capsule 25 Mcg PO DAILY Proair Hfa (Albuterol Sulfate) 1 Puff Puff 2 Puff IH Q4H PRN Breo Ellipta 100-25 Mcg INH (Fluticasone/Vilanterol) 1 Each Blst.w.dev 1 Each IH DAILY Escitalopram Oxalate 10 Mg Tablet 10 Mg PO HS Clopidogrel (Clopidogrel Bisulfate) 75 Mg Tablet 75 Mg PO HS Instructions to patient/family Please see electronic discharge instructions given to patient. Diagnosis/Problems Diagnosis/Problems (1) Intertrochanteric fracture of left hip Status: Acute (2) History of stroke Status: Chronic MAGGIE ESCAMILLA DO Feb 27, 2021 06:00
--- NOTE | 2021-02-27 06:00 | D/C HH Face to Face Order ---
D/C Face to Face Orders Reconcile Patient Problems Problems Reviewed?: Yes Instructions for Patient Via [facility], Patient Instructions/FollowUp: PCP 2 weeks Physician to follow Patient: PCP Discharge Diet for Home: No Restrictions Patient Problems: Hip fracture Patient Data-Allergies,Ht & Wt Patient Allergies: Coded Allergies: celecoxib (Unverified Allergy, Mild, RASH, 03/16/10) Penicillins (Unverified Allergy, Unknown, 01/05/14) Height (Feet): 5 Height (Inches): 2 Weight (Pounds): 109 Weight (Ounces): 0.0 Home Health Need/Face to Face Date of Face to Face: Feb 27, 2021 Clinical Findings: Generalized weakness and fatigue, Instability, Muscle weakness, Pain with ambulation, Unsteady gait I have seen Pt flsg-vw-nejx: Yes Discharged To: Home Diagnosis/Conditions: Hip fracture Patient is Homebound due to: [place] fall risk due to instabilty, Muscle weakness, Pain w/ambulation Homebound Status Due to the above stated illness, injury or surgical procedure (medical condition or diagnosis) and associated clinical findings, the patient is homebound because of his/her inability to leave home except with aid of a supportive device and/or person AND leaving the home requires a considerable and taxing effort or is medically contraindicated. Pt req the following assistanc: Walker Home Health Nursing Orders Home Health Services Order: Nursing Services, [employer] Fab[employer]ator-Evaluate & Treat, Physical Therapy-Evaluate & Treat Certify Stmt I certify that this patient is under my care and that I, a nurse practitioner or a physician; a academic affairs assistant working with me, had a face to face encounter that - meets the physician face to face encounter requirements with this patient as dated. MAGGIE ESCAMILLA DO Feb 27, 2021 06:00
[2021-02-27] MEDS: CEFDINIR 300 MG (OMNICEF) CAP PO SCH ×2 (06:34→08:00)
[2021-02-27] MEDS: KCL 10 MEQ TAB (MICRO K) PO SCH (06:34)
[2021-02-27] MEDS: RT--FLUTICASONE/SALMETEROL 113-14 (AIRDUO RespiCLICK) IH SCH (07:10)
[2021-02-27 07:28] VITALS: BP 104/57
[2021-02-27] MEDS: SENNA W/DOCUSATE (SENOKOT S) TABLET PO SCH (07:57)
[2021-02-27] MEDS: CYANOCOBALAMIN 1,000 MCG (VITAMIN B-12) TABLET PO SCH (07:57)
[2021-02-27] MEDS: VITAMIN D3 25 MCG (1,000 UNITS) TABLET PO SCH (07:57)
[2021-02-27] MEDS: CLOPIDOGREL 75 MG (PLAVIX) TABLET PO SCH (07:57)
[2021-02-27] MEDS: LACTOBACILLUS ACIDOPHILUS (PROBIOTIC) CAPSULE PO SCH (07:58)
[2021-02-27] MEDS: MULTIVIT W/MINERALS TAB (THERAGRAN M) PO SCH (07:58)
[2021-02-27] MEDS: DOCUSATE SODIUM 100 MG (COLACE) CAP PO SCH (08:00)
--- NOTE | 2021-02-27 08:26 | Therapy Team Discharge Summary ---
Therapy Discharge Summary Discharge Recommendations Date of Discharge Occupational Therapy Impaired Self-Care Skills Speech-Language Pathology The patient has demonstrated increased improvement with cognitive status, specifically functional memory. The patient does display intermittent functional recall difficulty (clinician's names, repetition of information) however does live with her son and has two supportive daughters to aid in her daily ADL's. At this time, the patient would benefit from skilled speech pathology home evaluation and treatment to ensure a safe transition to her familiar environment. PT Tour Narrator Goals Tour Narrator Goals PT Fdc Goals Time Frame: Mar 12, 2021 Roll Left to Right (QC): 6 Sit to Lying (QC): 6 Lying-Sitting on Side/Bed(QC): 6 Sit to Stand (QC): 6 Chair/Bmg-qo-Oplje Xfer(QC): 6 Car Transfer (QC): 4 (MET) Does the Patient Walk: Yes Walk 10 feet (QC): 6 Walk 10ft-Uneven Surface(QC): 6 Walk 50ft with 2 Turns (QC): 6 Walk 150 ft (QC): 6 Wheel 50 feet with 2 turns (QC: 9 1 Step (curb) (QC): 4 4 Steps (QC): 4 12 Steps (QC): 4 Picking up an Object (QC): 6 OT Fdc Goals Fdc Goals Time Frame: Mar 09, 2021 Eating (QC): 6 (met) Oral Hygiene (QC): 6 (met) Shower/Bathe Self (QC): 6 (met) Upper Body Dressing (QC): 6 (not met) Lower Body Dressing (QC): 6 (not met) On/Off Footwear (QC): 6 (not met) Toileting Hygiene (QC): 6 (met) Toilet/Commode Transfer (QC): 6 Additional Goals: 1-Demonstrate ADL Tasks, 2-Verbalize Understanding, 3- ImproveStrength/Lara 1=Demonstrate adherence to instructed precautions during ADL tasks. 2=Patient will verbalize/demonstrate understanding of assistive devices/modifications for ADL. 3=Patient will improve strength/tolerance for activity to enable patient to perform ADL's. Speech Fdc Goals Tour Narrator Goals 1. The patient will demonstrate improved cognitive linguistic function for increased independence and return to the least restrictive environment. MET. Time Frame: Three weeks. GERMÁN SERNA Feb 27, 2021 08:26
[2021-02-27] MEDS: polyethylene glycoL POWDER 17 GM (MIRALAX) PACK PO SCH (09:24)
[2021-02-27] MEDS: SENNOSIDES 8.6 MG (SENOKOT) TAB PO SCH (09:24)
--- NOTE | 2021-02-27 11:51 | Therapy Team Discharge Summary ---
Therapy Discharge Summary Discharge Recommendations Date of Discharge Occupational Therapy Pt admitted to ARU post L hip fx. At PLOF, pt was independent with ADLs and functional mobility without AD. Upon initial evaluation, pt was independent with eating, required min A showering, set up upper body dressing, min A lower body dressing, mod A footwear and SBA toileting. OT Tx with focus on increasing BUE strength and activity tolerance, and increasing independence with ADLs and functional mobility. At discharge, pt was independent with eating, oral care, showering, and toileting, required set up assistance with upper/lower body dressing and footwear. Pt made good progress towards goals, meeting all goals except dressing goals. Pt discharging from facility, d/c from OT. Impaired Self-Care Skills PT Halfway Goals Power Plant Operator Goals PT Power Plant Operator Goals Time Frame: Mar 12, 2021 Roll Left to Right (QC): 6 Sit to Lying (QC): 6 Lying-Sitting on Side/Bed(QC): 6 Sit to Stand (QC): 6 Chair/Uoa-nv-Pqbls Xfer(QC): 6 Car Transfer (QC): 4 (MET) Does the Patient Walk: Yes Walk 10 feet (QC): 6 Walk 10ft-Uneven Surface(QC): 6 Walk 50ft with 2 Turns (QC): 6 Walk 150 ft (QC): 6 Wheel 50 feet with 2 turns (QC: 9 1 Step (curb) (QC): 4 4 Steps (QC): 4 12 Steps (QC): 4 Picking up an Object (QC): 6 OT Power Plant Operator Goals Power Plant Operator Goals Time Frame: Mar 09, 2021 Eating (QC): 6 (met) Oral Hygiene (QC): 6 (met) Shower/Bathe Self (QC): 6 (met) Upper Body Dressing (QC): 6 (not met) Lower Body Dressing (QC): 6 (not met) On/Off Footwear (QC): 6 (not met) Toileting Hygiene (QC): 6 (met) Toilet/Commode Transfer (QC): 6 Additional Goals: 1-Demonstrate ADL Tasks, 2-Verbalize Understanding, 3- ImproveStrength/Lara 1=Demonstrate adherence to instructed precautions during ADL tasks. 2=Patient will verbalize/demonstrate understanding of assistive devices/modifications for ADL. 3=Patient will improve strength/tolerance for activity to enable patient to perform ADL's. Speech Halfway Goals Halfway Goals 1. The patient will demonstrate improved cognitive linguistic function for incre ased independence and return to the least restrictive environment. MET. Time Frame: Three weeks. GILLIAN VILLARREAL OT Feb 27, 2021 11:51
[2021-02-27 12:00] VITALS: BP 104/57
--- NOTE | 2021-02-27 12:51 | Therapy Team Discharge Summary ---
Therapy Discharge Summary Discharge Recommendations Date of Discharge Physical Therapy Patient came to rehab with L hip fracture s/p IM nail. Upon evaluation patient performed sit <-> stand with SBA, transfers SBA, car transfer min assist, ambulated 200' with a rolling walker with SBA (including 50' with at least 2 turns of 90 degrees but needs CGA for 10' over an uneven surface), and went up and down 1 step using a rolling walker. Patient has been performing bed mobility and transfer training, balance and endurance training, functional strengthening, stair training, gait training, and education. Patient has made good progress and has met all of her [facility] goals except for sit to supine, stairs, and picking up an object from the floor. Now, patient performs rolling with independence, sit to supine with setup, supine to sit with independence, sit <-> stand and transfers independence, car transfer independent, ambulates at least 150' with a rolling walker with independence (including 50' with at least 2 turns of 90 degrees and 10' over an uneven surface), and can go up and down 4 steps using 2 handrails with setup. Patient is discharging from this facility today and will be discharged from PT at this time. Occupational Therapy Impaired Self-Care Skills PT Sales Supervisor Goals Senior Living Goals PT Sales Supervisor Goals Time Frame: Mar 12, 2021 Roll Left to Right (QC): 6 Sit to Lying (QC): 6 Lying-Sitting on Side/Bed(QC): 6 Sit to Stand (QC): 6 Chair/Enk-kq-Rnjhc Xfer(QC): 6 Car Transfer (QC): 4 (MET) Does the Patient Walk: Yes Walk 10 feet (QC): 6 Walk 10ft-Uneven Surface(QC): 6 Walk 50ft with 2 Turns (QC): 6 Walk 150 ft (QC): 6 Wheel 50 feet with 2 turns (QC: 9 1 Step (curb) (QC): 4 4 Steps (QC): 4 12 Steps (QC): 4 Picking up an Object (QC): 6 OT Sales Supervisor Goals Sales Supervisor Goals Time Frame: Mar 09, 2021 Eating (QC): 6 (met) Oral Hygiene (QC): 6 (met) Shower/Bathe Self (QC): 6 (met) Upper Body Dressing (QC): 6 (not met) Lower Body Dressing (QC): 6 (not met) On/Off Footwear (QC): 6 (not met) Toileting Hygiene (QC): 6 (met) Toilet/Commode Transfer (QC): 6 Additional Goals: 1-Demonstrate ADL Tasks, 2-Verbalize Understanding, 3- ImproveStrength/Lara 1=Demonstrate adherence to instructed precautions during ADL tasks. 2=Patient will verbalize/demonstrate understanding of assistive devices/modifications for ADL. 3=Patient will improve strength/tolerance for activity to enable patient to perform ADL's. Speech Sales Supervisor Goals Sales Supervisor Goals 1. The patient will demonstrate improved cognitive linguistic function for increased independence and return to the least restrictive environment. MET. Time Frame: Three weeks. RAMY JUSTICE PT Feb 27, 2021 12:51
== END 2021-02-27 12:00 | disposition home health service (06) | DRG 560 ==
PROVIDERS: ADMIT Internal Medicine; ATTEND Internal Medicine
DX: S72.145D Nondisplaced intertrochanteric fracture of left femur, subsequent encounter for closed fracture with routine healing (principal); N39.0 Urinary tract infection, site not specified; J44.9 Chronic obstructive pulmonary disease, unspecified; M81.0 Age-related osteoporosis without current pathological fracture; F32.A Depression, unspecified; K59.09 Other constipation; R41.81 Age-related cognitive decline; B96.4 Proteus (mirabilis) (morganii) as the cause of diseases classified elsewhere; W17.2XXD Fall into hole, subsequent encounter; Z87.891 Personal history of nicotine dependence; Z79.899 Other long term (current) drug therapy; Z86.73 Personal history of transient ischemic attack (TIA), and cerebral infarction without residual deficits
CPT/HCPCS: 36415; 80053; 81000; 85025; 87077; 87088; 87186; 94640; 94760

== ENCOUNTER → 2021-03-27 | Outpatient (CLI) | payer MEDICARE, OTHER ==
[~2021-03-27] MED LIST changes: +CEFD300C3 PO; +OXC5T PO
--- NOTE | 2021-03-27 12:02 | Diagnostic Imaging Report ---
CLINICAL HISTORY: Follow-up. Left hip fracture. COMPARISON: 02/14/2021. TECHNIQUE: 2 views of the left hip. FINDINGS: Post surgical changes of open reduction and internal fixation for a intertrochanteric fracture of the proximal left femur are seen. There is anatomic alignment of the left femur. Bony bridging is seen across the fracture line. No new fractures are identified. No evidence of fracture in the included pelvis. The left hip joint demonstrates normal alignment. IMPRESSION: 1. Expected postsurgical changes of ORIF of the proximal left femur with interval healing of the intertrochanteric fracture. Dictated by: Dictated on workstation # [id number]
== END ==
LOC: ORTHO 11:03
PROVIDERS: ATTEND Orthopaedic Surgery
DX: Z09 Encounter for follow-up examination after completed treatment for conditions other than malignant neoplasm (principal); S72.142D Displaced intertrochanteric fracture of left femur, subsequent encounter for closed fracture with routine healing; Z98.890 Other specified postprocedural states; X58.XXXD Exposure to other specified factors, subsequent encounter
CPT/HCPCS: 73502

== ENCOUNTER → 2021-05-15 | Outpatient (CLI) | payer MEDICARE, OTHER ==
--- NOTE | 2021-05-15 12:22 | Diagnostic Imaging Report ---
INDICATION: Postop followup. COMPARISON: 03/27/2021 FINDINGS: 2 radiographic views of the left hip were obtained. Postsurgical changes of prior ORIF are again identified. Short intramedullary gregg is seen within the proximal left femoral shaft. This intersects a screw which traverses the femoral head and neck. Distal anchor screw is also noted. Femoral fracture fragments are in stable appropriate alignment. Femoral acetabular joint space is maintained. No unexpected radiopaque foreign bodies are seen. IMPRESSION: 1. Stable expected postsurgical changes of the proximal left femur as above. Dictated by: Dictated on workstation # [id number]
== END ==
LOC: ORTHO 10:42
PROVIDERS: ATTEND Orthopaedic Surgery
DX: S72.92XD Unspecified fracture of left femur, subsequent encounter for closed fracture with routine healing (principal); X58.XXXD Exposure to other specified factors, subsequent encounter
CPT/HCPCS: 73502

== ENCOUNTER → 2021-05-23 | Outpatient (CLI) | payer MEDICARE, OTHER ==
[~2021-05-23] MED LIST changes: +RT-ALBUTEROL SULF 2.5 MG/3 ML PRE-MIX VIAL INH ONE
== END ==
LOC: RT 14:42
PROVIDERS: ATTEND Internal Medicine Critical Care Medicine
DX: J44.9 Chronic obstructive pulmonary disease, unspecified (principal)
CPT/HCPCS: 94060; 94726; 94729

== ENCOUNTER → 2021-05-31 | Outpatient (CLI) | payer MEDICARE, OTHER ==
[~2021-05-31] MED LIST changes: -RT-ALBUTEROL SULF 2.5 MG/3 ML PRE-MIX VIAL INH ONE
== END ==
LOC: RT 12:58
PROVIDERS: ATTEND Internal Medicine Critical Care Medicine
DX: J44.9 Chronic obstructive pulmonary disease, unspecified (principal)
CPT/HCPCS: 94621

== ENCOUNTER → 2021-07-19 | Outpatient (CLI) | payer MEDICARE, OTHER ==
--- NOTE | 2021-07-19 17:17 | Diagnostic Imaging Report ---
INDICATION: Routine screening. COMPARISON: Prior mammograms from 05/04/2020 and 05/04/2019. EXAMINATION: 2D and 3D bilateral screening mammography was performed with CAD. The current study was also evaluated with a Computer Aided Detection (CAD) system. FINDINGS: Both breasts are heterogeneously dense, limiting the sensitivity of mammography. The overall parenchymal pattern is stable. No mass or malignant-appearing microcalcifications are seen. There are benign parenchymal and vascular calcifications, bilaterally. Axillae are unremarkable. IMPRESSION: No mammographic features suspicious for malignancy are identified. ACR BI-RADS Category 2: Benign findings. Result letter will be mailed to the patient. Note: At least 10% of breast cancer is not imaged by mammography. Dictated by: Dictated on workstation # [id number]
== END ==
LOC: RAD 15:00
PROVIDERS: ATTEND Internal Medicine
DX: Z12.31 Encounter for screening mammogram for malignant neoplasm of breast (principal)
CPT/HCPCS: 77063; 77067

== ENCOUNTER → 2021-10-31 | Outpatient (CLI) | payer MEDICARE, OTHER ==
--- NOTE | 2021-10-31 14:05 | Diagnostic Imaging Report ---
INDICATION: Hip pain. COMPARISON: 05/15/2021 FINDINGS: 2 radiographic views of the left hip were obtained and show stable postsurgical changes of previous ORIF. Short intramedullary gregg is seen within the proximal femoral shaft. This intersects a screw which traverses the femoral head and neck. Distal anchor screw is also noted. No unexpected radiopaque foreign bodies are seen. No new acute osseous abnormality is identified. IMPRESSION: 1. Stable expected postoperative changes of the left hip as above. Dictated by: Dictated on workstation # [id number]
== END ==
LOC: RAD 11:23
PROVIDERS: ATTEND Internal Medicine
DX: M25.552 Pain in left hip (principal)
CPT/HCPCS: 73502

== ENCOUNTER → 2021-11-15 | Outpatient (CLI) | payer MEDICARE, OTHER ==
--- NOTE | 2021-11-15 14:52 | Diagnostic Imaging Report ---
EXAMINATION: CT head without contrast. TECHNIQUE: Multiple contiguous axial images were obtained through the brain without the use of intravenous contrast. All CT scans use one or more of the following dose optimizing techniques: automated exposure control, MA and/or KvP adjustment based on patient size and exam type or iterative reconstruction. HISTORY: Memory loss. COMPARISON: 11/15/2014. FINDINGS: No large acute territorial ischemia, mass, or hemorrhage. No midline shift or mass effect. Prominent chronic infarct is seen in the right frontal lobe. Decreased attenuation is seen in the periventricular and subcortical white matter. The ventricles and cortical sulci are prominent. The basilar cisterns are patent and unremarkable. The orbits are normal. Paranasal sinuses are normal. Mastoid air cells are clear. No soft tissue abnormality is seen. No osseus lesions or fractures are seen. IMPRESSION: 1. No large acute territorial ischemia, mass, or hemorrhage. 2. 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 3. Generalized parenchymal volume loss with scattered chronic microvascular disease. Dictated by: Dictated on workstation # [id number]
== END ==
LOC: RAD 14:15
PROVIDERS: ATTEND Internal Medicine
DX: I63.9 Cerebral infarction, unspecified (principal); I67.82 Cerebral ischemia
CPT/HCPCS: 70450

== ENCOUNTER → 2022-12-13 | Outpatient (CLI) | payer MEDICARE, OTHER ==
[~2022-12-13] MED LIST changes: +ALBU8.5H6 IH; -RT-ALBUINH IH
== END ==
LOC: CARD 13:32
PROVIDERS: ATTEND Nurse Practitioner Family
DX: I08.1 Rheumatic disorders of both mitral and tricuspid valves (principal)
CPT/HCPCS: 93306